=== PATIENT | male | born 1960 | race Caucasian/White ===

== ENCOUNTER 2019-08-09 13:25 | Emergency (ER) | payer OTHER, SELFPAY ==
--- NOTE | ~2019-08-09 | XR_ITS ---
EXAMINATION: XR knee RT 3V DATE: 08/09/2019 14:26 INDICATION: Right knee injury with crepitus and internal pain TECHNIQUE: Anteroposterior, 2 oblique and crosstable lateral views of the right knee were obtained COMPARISON: None. FINDINGS: Alignment is normal. No fracture. Joint space appear normal. No joint effusion/layering lipohemarthr osis. Mild prepatellar soft tissue swelling. IMPRESSION: 1. No right knee joint effusion or acute osseous abnormality. Reviewed, dictated and finalized at location A.
[2019-08-09 13:39] VITALS: BP 141/74; PULSE 83; RESP 18; TEMP 36.3; O2SAT 97
--- NOTE | 2019-08-09 13:54 | ED.LOWEXIN ---
HPI - Extremity Injury (Lower) General Chief Complaint: Extremity Injury, Lower Stated Complaint: r leg pain at knee cap Time Seen by Provider: 08/09/19 13:55 Source: patient Mode of arrival: ambulatory Limitations: no limitations History of Present Illness HPI Narrative: 59-year-old man comes in today complaining of right medial knee pain, bruising, and swelling that started yesterday after the weight of a Rototiller was shifted onto it. He states that the pain is gotten worse and he feels a grinding sensation in the back of his knee and under his kneecap. He also complains that he is occasionally giving out. He denies any numbness or tingling distally. he is scheduled to see an orthopedic doctor next week. MD complaint: knee injury Onset (ago): day(s) (1) Injury: Right: knee Place: home Severity: moderate Relieving factors: rest Exacerbating factors: weight bearing, movement and palpation Context: direct blow Associated symptoms: swelling and able to partially bear weight Related Data Home Medications Medication Instructions Recorded Confirmed aspirin 81 mg tablet,delayed 81 mg PO DAILY 03/12/19 release atorvastatin 40 mg tablet 40 mg PO DAILY 03/12/19 nitroglycerin 0.4 mg sublingual 0.4 mg SUBLINGUAL Q5M PRN 03/12/19 tablet trazodone 150 mg tablet 150 mg PO BID 03/12/19 metoprolol succinate 50 mg PO DAILY 08/09/19 08/09/19 Allergies Allergy/AdvReac Type Severity Reaction Status Date / Time No Known Allergies Allergy Verified 08/08/19 10:30 Review of Systems Constitutional: Constitutional: Denies chills, Denies fever(s) and Denies weakness Eyes: Eyes: Denies change in vision and Denies photophobia Cardiovascular: Cardiovascular: Denies chest pain and Denies radiating jaw, neck or arm pain Respiratory: Respiratory: Denies cough, Denies dyspnea and Denies wheezing Musculoskeletal: Musculoskeletal: Reports as per HPI, Reports back pain (chronic), Reports arthralgias and Reports joint swelling Integumentary/Breasts: Skin/Breast: Denies pruritus, Denies rash and Denies skin ulcer Neurologic: Denies vertigo, Denies dizziness and Denies syncope Psychiatric: Psychiatric: Denies anxiety and Denies depression Hematologic/Lymphatic: Hematologic/Lymphatic: Denies easy bleeding and Denies easy bruising Allergic/Immunologic: Allergic/Immunologic: Denies lip swelling and Denies wheezing FOR[facility]LY [facility], [facility] Past Medical History Medical History Asthma History of heart attack Hyperlipemia Hypertension Surgical History Surgical History History of eye surgery multiple eye surgery 8821-1833 Hx of heart artery stent 2004 Family History Family History Father Pneumonia Sibling Throat cancer Unknown Heart disease Hypertension Allergies Social History Social History Smoking status: Never smoker Alcohol intake: former 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 Exam Const: General: healthy appearing and alert Orientation/consciousness: patient oriented x3 Other: Mild acute distress Eyes: Conjunctivae: conjunctivae normal Pupils: Equal, round and reactive pupils present EOM: EOMs intact bilaterally Resp: Effort & Inspection: normal respiratory effort and not labored Auscultation: clear to auscultation bilaterally, no rales, no rhonchi and no wheezes Cardio: Rate: regular rate Rhythm: regular rhythm Heart sounds: no murmurs Skin: General skin exam: normal color, no jaundice and no pallor Rashes: no rashes Neuro: General: patient oriented x3, moves all extremities, no focal motor deficits and CN's II-XI intact bilaterally Speech: normal speech Extrem: General: normal to inspection and no clubbing, cyanosis or edema Other: Regarding the right
== END 2019-08-09 14:50 | disposition home or self-care (01) ==
PROVIDERS: Emergency Provider Emergency Medicine; PCP Internal Medicine
DX: S83.91XA Sprain of unspecified site of right knee, initial encounter (principal); X58.XXXA Exposure to other specified factors, initial encounter
CPT/HCPCS: 73562; 99282; 99283

== ENCOUNTER 2020-01-28 07:29 | Outpatient (CLI) | payer OTHER, SELFPAY ==
--- NOTE | ~2020-01-28 | MR_ITS ---
EXAMINATION: MR knee RT wo con DATE: 01/28/2020 08:17 INDICATION: Right knee pain TECHNIQUE: Magnetic resonance imaging (MRI) of the right knee was performed without intravenous contr ast. Sequences included coronal PD-weighted FSE, coronal PD-weighted FS FSE, sagittal T2-weighted FS E, sagittal PD-weighted FS FSE and axial PD weighted fat saturated FSE. COMPARISON: None. FINDINGS: Medial compartment: Complex tear at the posterior horn of the at the posterior horn of the medial meniscus which includes both a radial component as well as a longitudinal horizontal component which extends anteriorly into the posterior meniscal body. There is partial thickness chondral ulceration and fissuring involving up to 50% the cartilage thickness along the anterior to central weightbearing medial femoral condyle. Chondral swelling and partial-thickness fissuring at the lateral aspect of the medial tibial plateau . Along the base of the intercondylar eminence. No degenerative subchondral changes. Lateral compartment: Small longitudinal horizontal tear extending to the inferior articular surface near the free edge of the body of the lateral meniscus. Partial-thickness chondral fissuring involving greater than 50% the cartilage thickness along the posterior rim of the lateral tibial plateau but without degenerative s ubchondral changes. Mild chondral surface irregularity at the junction of the anterior to central dejan ghtbearing lateral femoral condyle. Patellofemoral compartment: Shallow chondral fissuring involving less than 50% the cartilage thickness at both the medial and lat eral patellar facets and intervening apical ridge. Deep chondral ulceration with underlying cortical irregularity and minimal subarticular edema at the central aspect of the medial trochlea. Shallow cho ndral fissuring at the trochlear groove. Ligaments and tendons: Anterior and posterior cruciate ligaments are normal. The medial collateral ligament and fibular betty ateral ligament complex are normal. The extensor mechanism is normal. The visualized medial and later al hamstring tendons as well as the iliotibial band are normal. Fluid: Large right knee joint effusion. No loose osteochondral bodies identified. Mild edema in the fat ante rior aspect of the knee in the popliteal recess. Osseous/other: Bone alignment is normal. Enchondroma with classical T2 hyperintense cluster of grape like appearance measuring 1.6 x 0.7 x 0.4 cm in the metaphyseal region of the distal femur. No fracture or other pat hologic marrow replacing process. Medial plical band which extends across the medial rim of the media l trochlea. IMPRESSION: 1. Medial and lateral meniscal tears, the former complex. 2. 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 3. Large right knee joint effusion with medial plical band at the suprapatellar pouch. 4. Incidental enchondroma the distal femur. Reviewed, dictated and finalized at location A. IMPRESSION: 1. Medial and lateral meniscal tears, the former complex. 2. Mild tricompartmental osteoarthritis with high-grade chondromalacia at the m edial trochlea and moderate grade chondromalacia at the patella and medial and lateral compartments. 3. Large right knee joint effusion with medial plical band at the suprapatellar pouch. 4. Incidental enchondroma the distal femur.
== END 2020-01-28 07:30 | disposition home or self-care (01) ==
PROVIDERS: PCP Internal Medicine; Visit Provider Orthopaedic Surgery
DX: S83.231A Complex tear of medial meniscus, current injury, right knee, initial encounter (principal); S83.281A Other tear of lateral meniscus, current injury, right knee, initial encounter; M25.461 Effusion, right knee; D16.21 Benign neoplasm of long bones of right lower limb; M17.11 Unilateral primary osteoarthritis, right knee; M22.41 Chondromalacia patellae, right knee; X58.XXXA Exposure to other specified factors, initial encounter
CPT/HCPCS: 73721

== ENCOUNTER 2020-05-28 15:57 | Emergency (ER) | payer MEDICAID, SELFPAY ==
--- NOTE | ~2020-05-28 | XR_ITS ---
EXAMINATION: XR forearm RT 2V EXAM DATE: 05/28/2020 16:37 INDICATION: Initial encounter following injury, with pain of the right forearm, medial pain and swell ing and bruising. TECHNIQUE: Right forearm frontal and lateral projections obtained and reviewed. There is no prior st udy for comparison. FINDINGS: There is small right olecranon spur. There are no acute fractures or dislocations identifi ed. There is no subcutaneous gas. The soft tissue is unremarkable. There are no radiopaque foreig n bodies. IMPRESSION: No acute osseous findings. Reviewed, dictated and finalized at location A. B [facility] IMPRESSION: No acute osseous findings.
[2020-05-28 16:06] VITALS: BP 149/89; PULSE 73; RESP 14; TEMP 36.7; O2SAT 99
--- NOTE | 2020-05-28 16:19 | ED.GENADULT ---
HPI - General Adult General Chief complaint: Extremity Injury, Upper Stated complaint: right forearm injury- fell Time Seen by Provider: 05/28/20 16:09 Source: patient Mode of arrival: ambulatory Limitations: no limitations History of Present Illness HPI narrative: Patient is a 60-year-old male who presents with right mid forearm injury that occurred last night after tripping over his dog striking his right mid forearm patient notes aching pain worse with activity and movement denies other injuries presents in no distress Related Data Home Medications Medication Instructions Recorded Confirmed aspirin 81 mg tablet,delayed 81 mg PO DAILY 03/12/19 08/09/19 release atorvastatin 40 mg tablet 40 mg PO DAILY 03/12/19 08/09/19 nitroglycerin 0.4 mg sublingual 0.4 mg SUBLINGUAL Q5M PRN 03/12/19 08/09/19 tablet trazodone 150 mg tablet 150 mg PO HS PRN 03/12/19 08/09/19 metoprolol succinate 50 mg PO DAILY 08/09/19 08/09/19 Allergies Allergy/AdvReac Type Severity Reaction Status Date / Time No Known Allergies Allergy Verified 05/28/20 16:14 Review of Systems Review of Systems: Narrative: CONSTITUTIONAL: Denies fever, chills, or sweats. SKIN: Positive for abrasion of the right forearm MUSCULOSKELETAL: Denies myalgia. Negative for arthralgia NEUROLOGIC: Denies numbness, or weakness. 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 HEAD: Normocephalic, atraumatic. EYES: PERRLA and EOMI. ENT: Nares clear, no rhinorrhea or epistaxis. Mucous membranes moist. EXTREMITIES: Normal range of motion. No edema. Right mid forearm tenderness with small abrasion remainder of extremity nontender SKIN: Warm, dry, no rash. NEURO: No focal deficits. Alert and oriented x3. Neurovascularly intact PSYCH: Normal mood and affect. Course Course Emergency Course: Patient evaluated in the emergency department no concerning findings on the imaging will be discharged with outpatient follow-up Vital Signs Vital signs: Vital Signs Temperature 98.0 F 05/28/20 16:06 Pulse Rate 73 05/28/20 16:06 Respiratory Rate 14 05/28/20 16:06 Blood Pressure 149/89 H 05/28/20 16:06 Pulse Oximetry 99 05/28/20 16:06 Temperature 98.0 F 05/28/20 16:06 Pulse Rate 73 05/28/20 16:06 Respiratory Rate 14 05/28/20 16:06 Blood Pressure 149/89 H 05/28/20 16:06 Pulse Oximetry 99 05/28/20 16:06 Medical Decision Making MDM Narrative Medical decision making narrative: Patients injury or pain is consistent with musculoskeletal etiology. No signs of neurological or vascular compromise on exam. Compartments and tisues are soft without signs of compartment syndrome. Pain is felt appropriate for further evaluation on an outpatient basis. Vital Signs Vital Signs: Vital Signs Temperature 98.0 F 05/28/20 16:06 Pulse Rate 73 05/28/20 16:06 Respiratory Rate 14 05/28/20 16:06 Blood Pressure 149/89 H 05/28/20 16:06 Pulse Oximetry 99 05/28/20 16:06 Temperature 98.0 F 05/28/20 16:06 Pulse Rate 73 05/28/20 16:06 Respiratory Rate 14 05/28/20 16:06 Blood Pressure 149/89 H 05/28/20 16:06
== END 2020-05-28 17:15 | disposition home or self-care (01) ==
PROVIDERS: Emergency Provider Emergency Medicine; PCP Internal Medicine
DX: S50.11XA Contusion of right forearm, initial encounter (principal); J45.909 Unspecified asthma, uncomplicated; I25.2 Old myocardial infarction; E78.5 Hyperlipidemia, unspecified; I10 Essential (primary) hypertension; W01.0XXA Fall on same level from slipping, tripping and stumbling without subsequent striking against object, initial encounter
CPT/HCPCS: 73090; 99283

== ENCOUNTER 2020-07-02 09:28 | Emergency (ER) | payer MEDICAID, SELFPAY ==
--- NOTE | ~2020-07-02 | XR_ITS ---
EXAMINATION: XR foot LT 2V DATE: 07/02/2020 10:01 INDICATION: Foot injury with pain at the first-third tarsal after kicking a log. TECHNIQUE: Dorsoplantar, 2 oblique and lateral views of the left foot were obtained. COMPARISON: None. FINDINGS: Alignment is normal. No fracture. Mild to moderate osteoarthritis at the first metatarsophalangeal thai int. Remaining joint spaces appear relatively preserved. Small Achilles and plantar calcaneal spurs. Soft tissues are unremarkable. IMPRESSION: 1. Mild to moderate osteoarthritis at the first metatarsophalangeal joint. No acute osseous abnormali ty. Reviewed, dictated and finalized at location A. IMPRESSION: 1. Mild to moderate osteoarthritis at the first metatarsophalangeal joint. No a cute osseous abnormality.
[2020-07-02 09:40] VITALS: BP 148/97; PULSE 56; RESP 17; TEMP 36.4; O2SAT 99
--- NOTE | 2020-07-02 10:41 | ED.LOWEXIN ---
HPI - Extremity Injury (Lower) General Chief Complaint: Extremity Injury, Lower Stated Complaint: left foot injury Source: patient History of Present Illness HPI Narrative: this is a 60-year-old gentleman presents after he kicked a tree stump inadvertently causing pain with swelling and bruising to the anterior surface of his left foot, this occurred yesterday rates his pain about 8/10 and while at rest about a 4/10 has some decreased range of motion secondary to pain and swelling. Past medical history is coronary artery disease with stents otherwise no fever chills no shortness of breath no chest pain. complaint: foot injury Injury: Left: foot ( Anterior bruising on his left foot) Type of Injury: blunt Place: work Severity: moderate Relieving factors: immobilization Exacerbating factors: weight bearing and movement Context: direct blow Related Data Home Medications Medication Instructions Recorded Confirmed aspirin 81 mg tablet,delayed 81 mg PO DAILY 03/12/19 07/02/20 release atorvastatin 40 mg tablet 40 mg PO DAILY 03/12/19 07/02/20 nitroglycerin 0.4 mg sublingual 0.4 mg SUBLINGUAL Q5M PRN 03/12/19 07/02/20 tablet trazodone 150 mg tablet 150 mg PO HS PRN 03/12/19 07/02/20 metoprolol succinate 50 mg PO DAILY 08/09/19 07/02/20 Allergies Allergy/AdvReac Type Severity Reaction Status Date / Time No Known Allergies Allergy Verified 05/28/20 16:14 Review of Systems Review of Systems: All systems reviewed & are unremarkable except as noted in HPI and below PMFSH Past Medical History Medical History (Updated 07/02/20 @ 10:45 by Christopher Zuleta MD) Asthma History of heart attack Hyperlipemia Hypertension Surgical History Surgical History History of eye surgery multiple eye surgery 7366-4787 Hx of heart artery stent 2004 Family History Family History Father Pneumonia Sibling Throat cancer Unknown Heart disease Hypertension Allergies Social History Social History Smoking status: Never smoker Alcohol intake: former 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sciousness: patient oriented x3 HENMT: Head: normal to inspection Eyes: Pupils: Equal, round and reactive pupils present Neck: Neck: normal visual inspection Chest: Chest palpation & inspection: normal inspection of the chest Resp: Effort & Inspection: normal respiratory effort Cardio: Rate: regular rate Rhythm: regular rhythm GI: GI Palp: Yes Soft to palpation Percussion: Yes normal to percussion Back/Spine/Pelvis: Back: no CVA tenderness Neuro: General: patient oriented x3 Extrem: General: normal to inspection Psych: Mental Status: mental status grossly normal Course Course Emergency Course: X-ray findings were reviewed with patient, advised to keep elevated use Motrin lever Tylenol as needed for pain and can use ice to affected foot. Vital Signs Vital signs: Vital Signs Temperature 36.4 C 07/02/20 09:40 Pulse Rate 56 L 07/02/20 09:40 Respiratory Rate 17 07/02/20 09:40 Blood Pressure 148/97 H 07/02/20 09:40 Pulse Oximetry 99 07/02/20 09:40 Temperature 36.4 C 07/02/20 09:40 Pulse Rate 56 L 07/02/20 09:40 Respiratory Rate 17 07/02/20 09:40 Blood Pressure 148/97 H 07/02/20 09:40 Pulse Oximetry 99 07/02/20 09:40 Critical Care Time Critical Care Time Critical Care Time: No Discharge Plan Discharge Clinical Impression: Foot sprain Qualifiers: Encounter type: initial encounter Laterality: left Qualified Code(s): S93.602A - Unspecified sprain of left foot, initial encounter Patient Disposition: Home, Self-Care Condition: Stable Instructions
[2020-07-02 10:50] VITALS: RESP 16
== END 2020-07-02 10:50 | disposition home or self-care (01) ==
PROVIDERS: Emergency Provider Emergency Medicine
DX: S93.602A Unspecified sprain of left foot, initial encounter (principal); W22.8XXA Striking against or struck by other objects, initial encounter
CPT/HCPCS: 73620; 73630; 99282; 99283

== ENCOUNTER → 2020-12-17 02:43 | Outpatient (CLI) | payer MEDICARE, MEDICAID, SELFPAY ==
[2020-12-17 20:44] LABS: SARS-CoV-2 RNA PCR Positive
== END ==
PROVIDERS: PCP Internal Medicine; Visit Provider Internal Medicine
DX: U07.1 COVID-19 (principal)
CPT/HCPCS: C9803; U0003; U0005

== ENCOUNTER 2021-07-27 18:01 | Emergency (ER) | payer MEDICARE, MEDICAID, SELFPAY ==
--- NOTE | ~2021-07-27 | XR_ITS ---
EXAM: XR hand RT min 3V HISTORY: hand injury. pain @ 4th digit COMPARISON: None available FINDINGS: Comminuted fracture of the distal right fourth metacarpal, with lateral and anterior angul ation. Fracture lines likely extend to the articular surface. No other fracture. Scattered mild degen erative changes. IMPRESSION: Comminuted fracture of the distal right fourth metacarpal (boxer's type fracture), with likely intra- articular extension. Reviewed, dictated and finalized at location K. IMPRESSION: Comminuted fracture of the distal right fourth metacarpal (boxer's type fractur e), with likely intra-articular extension.
[2021-07-27 18:25] VITALS: BP 160/79; PULSE 61; RESP 16; TEMP 36.6; O2SAT 100
--- NOTE | 2021-07-27 18:34 | ED.UPPEXIN ---
HPI - Extremity Injury (Upper) General Chief Complaint: Extremity Injury, Upper Stated Complaint: RT hand injury Time Seen by Provider: 07/27/21 18:34 Source: patient History of Present Illness HPI narrative: 61-year-old male with a history of coronary artery disease status post stent in 2004, chronic low back pain presents to the ER after he fell and injured his right hand. No other injuries. No head injury. Complains of pain in the right 4th metacarpal extending back to the wrist. he has a 1 cm deep laceration over the MP joint dorsally which happened a few days ago. complaint: injury to: right Onset (ago): hour(s) ( 1 hour ago) Other Extremity Injury: Right: hand Handedness: right Place: home Relieving factors: none Exacerbating factors: movement of extremity Context: fall Associated symptoms: denies other symptoms Related Data Home Medications Medication Instructions Recorded Confirmed aspirin 81 mg tablet,delayed 81 mg PO DAILY 03/12/19 07/27/21 release atorvastatin 40 mg tablet 40 mg PO DAILY 03/12/19 07/27/21 nitroglycerin 0.4 mg sublingual 0.4 mg SUBLINGUAL Q5M PRN 03/12/19 07/27/21 tablet trazodone 150 mg tablet 150 mg PO HS PRN 03/12/19 07/27/21 metoprolol succinate 50 mg PO DAILY 08/09/19 07/27/21 ezetimibe [Zetia] 10 mg PO DAILY 07/27/21 07/27/21 Allergies Allergy/AdvReac Type Severity Reaction Status Date / Time No Known Allergies Allergy Verified 07/27/21 18:44 Review of Systems Review of Systems: All systems reviewed & are unremarkable except as noted in HPI and below Constitutional: Constitutional: Reports as per HPI and Reports no additional constitutional complaints Eyes: Eyes: Reports as per HPI and Reports no additional eye complaints ENT: Reports system reviewed and no additional complaints, except as documented and Reports as per HPI Cardiovascular: Cardiovascular: Reports as per HPI and Reports no additional cardiovascular complaints Respiratory: Respiratory: Reports as per HPI and Reports no additional respiratory complaints Gastrointestinal: Gastrointestinal: Reports as per HPI and Reports no additional gastrointestinal complaints Genitourinary: Genitourinary: Reports no additional male genitourinary complaints Musculoskeletal: Comments: Pain right hand is localized over the 4th metacarpal Integumentary/Breasts: Skin/Breast: Reports system reviewed and no additional complaints, except as docu and Reports as per HPI Comments: old 1 cm laceration on the back of right hand over the 2nd MP joint Neurologic: Reports system reviewed and no additional complaints, except as documented and Reports as per HPI Psychiatric: Psychiatric: Reports no additional psychiatric complaints and Reports as per HPI Endocrine: Endocrine: Reports no additional endocrine complaints and Reports as per HPI Hematologic/Lymphatic: Hematologic/Lymphatic: Reports no additional hematologic/lymphatic complaints and Reports as per HPI Allergic/Immunologic: Allergic/Immunologic: Reports no additional allergic/immunologic complaints and Reports as per HPI PMFSH Past Medical History Medical History (Updated 07/27/21 @ 19:11 by Aamir Do MD) Asthma History of heart attack Hyperlipemia Hypertension Surgical History Surgical History History of eye surgery multiple eye surgery [id number] Hx of heart artery stent 2004 Family History Family History Father Pneumonia Sibling Throat cancer Unknown Heart disease Hypertension Allergies Social History Social History Smoking status: Never smoker Alcohol intake: former 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
[2021-07-27 19:23] VITALS: BP 155/82; PULSE 78; RESP 18; TEMP 36.6; O2SAT 98
== END 2021-07-27 19:35 | disposition home or self-care (01) ==
PROVIDERS: Emergency Provider Internal Medicine Critical Care Medicine; PCP Internal Medicine
DX: S62.334A Displaced fracture of neck of fourth metacarpal bone, right hand, initial encounter for closed fracture (principal); W19.XXXA Unspecified fall, initial encounter
CPT/HCPCS: 29125; 73130; 99284

== ENCOUNTER 2021-12-18 12:08 | Emergency (ER) | payer OTHER, SELFPAY ==
[2021-12-18 12:35] VITALS: BP 151/77; PULSE 68; RESP 16; TEMP 36.2; O2SAT 100
--- NOTE | 2021-12-18 12:51 | ED.GENADULT ---
HPI - General Adult General Chief complaint: Upper Respiratory Infection Stated complaint: sore throat/coughing/sweats Time Seen by Provider: 12/18/21 12:13 Source: patient Mode of arrival: ambulatory Limitations: no limitations History of Present Illness HPI narrative: this is a 61-year-old gentleman that presents with a one-week history of nasal congestion with some nonproductive cough with postnasal drip frontal and maxillary sinus pressure bilaterally with palpation his son had been diagnosed with a sinus infection. Currently there is no shortness of breath no chest pain no fever chills no nausea vomiting. Onset (ago): week(s) Location: head and face Severity: mild Related Data Home Medications Medication Instructions Recorded Confirmed aspirin 81 mg tablet,delayed 81 mg PO DAILY 03/12/19 07/27/21 release atorvastatin 40 mg tablet 40 mg PO DAILY 03/12/19 07/27/21 nitroglycerin 0.4 mg sublingual 0.4 mg sublingual Q5M PRN Chest 03/12/19 07/27/21 tablet Pain trazodone 150 mg tablet 150 mg PO HS PRN Sleep 03/12/19 07/27/21 metoprolol succinate 50 mg 50 mg PO DAILY 08/09/19 07/27/21 tablet,extended release 24 hr ezetimibe 10 mg tablet (Zetia) 10 mg PO DAILY 07/27/21 07/27/21 Allergies Allergy/AdvReac Type Severity Reaction Status Date / Time No Known Allergies Allergy Verified 12/18/21 13:00 Review of Systems Review of Systems: All systems reviewed & are unremarkable except as noted in HPI and below PMFSH Past Medical History Medical History (Updated 12/18/21 @ 13:02 by Christopher Zuleta MD) Asthma History of heart attack Hyperlipemia Hypertension Surgical History Surgical History History of eye surgery multiple eye surgery [id number] Hx of heart artery stent 2004 Family History Family History Father Pneumonia Sibling Throat cancer Unknown Heart disease Hypertension Allergies Social History Social History Smoking status: Never smoker Alcohol intake: former 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 Gender identity (if verbalized by the patient): Male Exam Const: General: healthy appearing and no acute distress Nutritional Appearance: well nourished Limitations: no limitations HENMT: Head: normal to inspection Mouth: Yes Normal oral and palatal mucosa present Other: Frontal and maxillary sinus tenderness to palpation Eyes: EOM: EOMs intact bilaterally Neck: Neck: normal visual inspection, no lymphadenopathy and no meningeal signs Chest: Chest palpation & inspection: normal inspection of the chest Resp: Effort & Inspection: normal respiratory effort Cardio: Rate: regular rate Rhythm: regular rhythm GI: GI Palp: Yes Soft to palpation Back/Spine/Pelvis: Back: no CVA tenderness Skin: General skin exam: normal color Rashes: no rashes Neuro: General: patient oriented x3, moves all extremities, no meningeal signs and no focal motor deficits Extrem: General: normal to inspection and no clubbing, cyanosis or edema Psych: Mental Status: mental status grossly normal Affect: normal affect Course Course Emergency Course: patient received 1g IM ceftriaxone advised to take antibiotics as prescribed and follow-up with primary care physician if symptoms persist or worsen. Critical Care Time Critical Care Time Critical Care Time: No Discharge Plan Discharge Clinical Impression: Sinusitis Qualifiers: Sinusitis location: unspecified location Chronicity: acute Recurrence: non-recurrent Qualified Code(s): J01.90 - Acute sinusitis, unspecified Patient Disposition: Home, Self-Care Condition: Stable Instructions: Antibiotic Form, Sinusitis (ED) Additional Instructions: take medicine as prescribed and follow-up with primary care physician if symptoms persist
[2021-12-18] MEDS: cefTRIAXone 1 GM, LIDOCAINE HCL 1% LOCAL INJ 2.1 ML IM (13:13)
[2021-12-18 13:35] VITALS: BP 142/65; PULSE 70; RESP 16; TEMP 36.6; O2SAT 98
== END 2021-12-18 13:37 | disposition home or self-care (01) ==
PROVIDERS: Emergency Provider Emergency Medicine; PCP Internal Medicine
DX: J01.90 Acute sinusitis, unspecified (principal); E78.5 Hyperlipidemia, unspecified; I10 Essential (primary) hypertension
CPT/HCPCS: 96372; 99283; J0696

== ENCOUNTER 2022-02-23 11:08 | Outpatient (CLI) | payer OTHER, SELFPAY ==
[2022-02-23 12:26] LABS: Influenza A QL RT-PCR Negative (Negative); Influenza B QL RT-PCR Negative (Negative); SARS-CoV-2 RNA PCR Positive (Negative)
== END 2022-02-23 11:09 | disposition home or self-care (01) ==
PROVIDERS: PCP Internal Medicine; Visit Provider Internal Medicine
DX: U07.1 COVID-19 (principal); R05.9 Cough, unspecified
CPT/HCPCS: 87636

== ENCOUNTER 2022-04-05 09:56 | Outpatient (CLI) | payer OTHER, SELFPAY ==
[2022-04-05 11:04] LABS: Cholesterol 189 mg/dL (0-200); HDL Direct 48 mg/dL (40-60); LDL Cholesterol Calculated 103 mg/dL (<130); Triglycerides 188 mg/dL (0-150)
== END 2022-04-05 09:57 | disposition home or self-care (01) ==
LOC: CHSLAB 10:01
PROVIDERS: PCP Internal Medicine
DX: R07.9 Chest pain, unspecified (principal); E78.5 Hyperlipidemia, unspecified; I10 Essential (primary) hypertension; I25.10 Atherosclerotic heart disease of native coronary artery without angina pectoris
CPT/HCPCS: 36415; 80061

== ENCOUNTER 2022-05-23 07:44 | Outpatient (CLI) | payer OTHER, SELFPAY ==
[2022-05-23 08:00] LABS: Basophils Absolute Auto 0.04 K/mm3 (0.00-0.10); Basophils Percent Auto 0.7 % (0.0-1.0); Eosinophils Absolute Auto 0.35 K/mm3 (0.02-0.50); Eosinophils Percent Auto 5.9 % (1.0-6.0); Hematocrit 43.9 % (40.0-54.0); Hemoglobin 14.8 g/dL (14.0-18.0); Immature Granulocyte Absolute 0.01 K/mm3 (0.00-0.00); Immature Granulocyte Percent A 0.2 % (0.0-0.0); Lymphocytes Absolute Auto 1.95 K/mm3 (1.10-4.50); Lymphocytes Percent Auto 32.6 % (18.0-42.0); Mean Corpuscular HGB Conc 33.7 g/dL (32.0-36.0); Mean Corpuscular Hemoglobin 28.8 pg (27.0-31.0); Mean Corpuscular Volume 85.4 fL (78.0-102.0); Mean Platelet Volume 9.5 fl (8.7-11.0); Monocytes Absolute Auto 0.56 K/mm3 (0.10-0.90); Monocytes Percent Auto 9.4 % (2.0-11.0); Neutrophils Absolute Auto 3.1 K/mm3 (1.7-7.2); Neutrophils Percent Auto 51.2 % (50.0-70.0); Platelet Count Result 285 K/mm3 (150-420); Red Blood Count 5.14 M/mm3 (4.70-6.10); Red Cell Distribution Width 13.3 % (11.6-14.4)
[2022-05-23 08:49] LABS: Alanine Aminotransferase 22 U/L (16-63); Albumin Level 3.9 g/dL (3.4-5.0); Alkaline Phosphatase 64 U/L (46-116); Anion Gap 5 mmol/L (8-16); Aspartate Amino Transferase 26 U/L (15-37); Bilirubin,Total 0.4 mg/dL (0.00-1.00); Blood Urea Nitrogen 14 mg/dL (7-18); Calcium 9.3 mg/dL (8.5-10.1); Carbon Dioxide 31 mmol/L (21-32); Chloride 101 mmol/L (98-108); Cholesterol 157 mg/dL (0-200); Estimated Glomerular Filt Rate > 60; Glucose 103 mg/dL (70-99); HDL Direct 44 mg/dL (40-60); LDL Cholesterol Calculated 92 mg/dL (<130); Osmolality Calculated 284 mOsm/kg (285-295); Potassium 4.8 mmol/L (3.5-5.1); Prostate Specific Antigen 0.6 ng/mL (< OR = 4.0); Sodium 137 mmol/L (136-145); Total Protein 7.2 g/dL (6.4-8.2); Triglycerides 103 mg/dL (0-150)
== END 2022-05-23 07:45 | disposition home or self-care (01) ==
LOC: CHSLAB 07:47
PROVIDERS: PCP Internal Medicine; Visit Provider Internal Medicine
DX: E78.00 Pure hypercholesterolemia, unspecified (principal); N42.9 Disorder of prostate, unspecified; I10 Essential (primary) hypertension; Z12.5 Encounter for screening for malignant neoplasm of prostate
CPT/HCPCS: 36415; 80053; 80061; 84153; 85025; G0103

== ENCOUNTER 2022-10-21 08:43 | Outpatient (CLI) | payer OTHER, SELFPAY ==
[2022-10-21 09:00] LABS: Basophils Absolute Auto 0.05 K/mm3 (0.00-0.10); Basophils Percent Auto 0.8 % (0.0-1.0); Eosinophils Absolute Auto 0.22 K/mm3 (0.02-0.50); Eosinophils Percent Auto 3.6 % (1.0-6.0); Hematocrit 45.6 % (40.0-54.0); Hemoglobin 15.3 g/dL (14.0-18.0); Immature Granulocyte Absolute 0.01 K/mm3 (0.00-0.00); Immature Granulocyte Percent A 0.2 % (0.0-0.0); Lymphocytes Absolute Auto 1.72 K/mm3 (1.10-4.50); Lymphocytes Percent Auto 28.1 % (18.0-42.0); Mean Corpuscular HGB Conc 33.6 g/dL (32.0-36.0); Mean Corpuscular Hemoglobin 28.8 pg (27.0-31.0); Mean Corpuscular Volume 85.9 fL (78.0-102.0); Mean Platelet Volume 9.7 fl (8.7-11.0); Monocytes Absolute Auto 0.54 K/mm3 (0.10-0.90); Monocytes Percent Auto 8.8 % (2.0-11.0); Neutrophils Absolute Auto 3.6 K/mm3 (1.7-7.2); Neutrophils Percent Auto 58.5 % (50.0-70.0); Platelet Count Result 281 K/mm3 (150-420); Red Blood Count 5.31 M/mm3 (4.70-6.10); Red Cell Distribution Width 13.2 % (11.6-14.4); White Blood Count 6.1 K/mm3 (4.8-10.8)
[2022-10-21 09:57] LABS: Alanine Aminotransferase 25 U/L (16-63); Albumin Level 3.8 g/dL (3.4-5.0); Alkaline Phosphatase 72 U/L (46-116); Anion Gap 7 mmol/L (8-16); Aspartate Amino Transferase 12 U/L (15-37); Bilirubin,Total 0.7 mg/dL (0.00-1.00); Blood Urea Nitrogen 12 mg/dL (7-18); Calcium 9.4 mg/dL (8.5-10.1); Carbon Dioxide 29 mmol/L (21-32); Chloride 105 mmol/L (98-108); Cholesterol 157 mg/dL (0-200); Estimated Glomerular Filt Rate > 60; Free T4 Free Thyroxine 0.85 ng/dL (0.76-1.46); Glucose 101 mg/dL (70-99); HDL Direct 43 mg/dL (40-60); LDL Cholesterol Calculated 94 mg/dL (<130); Osmolality Calculated 291 mOsm/kg (285-295); Potassium 4.5 mmol/L (3.5-5.1); Prostate Specific Antigen 0.4 ng/mL (< OR = 4.0); Sodium 141 mmol/L (136-145); Thyroid Stimulating Hormone 1.56 uIU/mL (0.36-3.74); Triglycerides 100 mg/dL (0-150)
== END 2022-10-21 08:44 | disposition home or self-care (01) ==
PROVIDERS: PCP Internal Medicine; Visit Provider Internal Medicine
DX: E78.00 Pure hypercholesterolemia, unspecified (principal); N42.9 Disorder of prostate, unspecified
CPT/HCPCS: 36415; 80053; 80061; 84153; 84439; 84443; 85025

== ENCOUNTER 2023-04-01 08:48 | Observation (INO) | payer OTHER, SELFPAY ==
[2023-04-01] VITALS (25 sets, daily range): BP systolic 137–153; BP diastolic 80–91; PULSE 70–112; RESP 12–25; TEMP 36.3–36.4; O2SAT 95–100; BMI 29.3
--- NOTE | ~2023-04-01 | XR_ITS ---
XR chest 1V portable DATE: 04/01/2023 11:12 INDICATION: Cough, shortness of breath. Covid and RSV positive. TECHNIQUE: 2 portable AP views on 04/01/2023 at 1104 at 1106 hours COMPARISON: None FINDINGS: Normal heart size. There is minimal aortic unfolding. The examination is limited by artifacts including tubing and apparent syringe overlying the chest. No pulmonary infiltrate or consolidation, pleural effusion or pulmonary vascular congestion or pneumo thorax is detected. Degenerative spurring of the thoracic spine. IMPRESSION: Limited examination due to overlying artifact. No obvious active cardiopulmonary disease Reviewed, dictated and finalized at location A. [employer] IMPRESSION: Limited examination due to overlying artifact. No obvious active ca rdiopulmonary disease
[2023-04-01 10:05] LABS: Influenza A QL RT-PCR Negative (Negative); Influenza B QL RT-PCR Negative (Negative); RSV RNA, RT-PCR Positive (Negative); SARS-CoV-2 RNA PCR Positive (Negative)
[2023-04-01] MEDS: IPRATROPIUM BR 0.02% INH SOLN 0.5 MG/2.5 ML VIAL 1.5 MG INHALATION (10:43)
[2023-04-01] MEDS: LEVALBUTEROL NEB 1.25 MG/3 ML 2.5 MG INHALATION (10:43)
--- NOTE | 2023-04-01 11:17 | ED.URI ---
HPI - URI/Sore Throat General Chief Complaint: Upper Respiratory Infection Stated Complaint: cold Time Seen by Provider: 04/01/23 09:37 Source: patient Mode of arrival: ambulatory Limitations: no limitations History of Present Illness HPI Narrative: Patient is a 63-year-old male who presents ED with report of URI symptoms. Patient reports he has been sick intermittently for the last 1.5 months. He has been on several courses of antibiotics and steroids per his PCP. He was initially feeling better, but states he was around his son whose classmate had been sick with RSV around 1 week ago. He reports worsening cough, congestion, headache, muscle aches, shortness of breath, chest pain with coughing over the last couple days. Denies chest pain at rest. Denies fevers. He has been taking Tylenol and using spiriva at home. Has not taken anything for sx's today. Related Data Home Medications Medication Instructions Recorded Confirmed aspirin 81 mg tablet,delayed 81 mg PO DAILY 03/12/19 04/01/23 release atorvastatin 40 mg tablet 40 mg PO DAILY 03/12/19 04/01/23 metoprolol succinate 50 mg 50 mg PO DAILY 08/09/19 04/01/23 tablet,extended release 24 hr ezetimibe 10 mg tablet (Zetia) 10 mg PO DAILY 07/27/21 04/01/23 montelukast 10 mg tablet 10 mg PO DAILY 12/18/21 04/01/23 Allergies Allergy/AdvReac Type Severity Reaction Status Date / Time No Known Allergies Allergy Verified 04/01/23 09:35 Review of Systems Review of Systems: CONSTITUTIONAL: Denies fever, chills, or sweats. ENT: See HPI. CARDIOVASCULAR: See HPI. RESPIRATORY: See HPI. GASTROINTESTINAL: Denies abdominal pain, nausea, vomiting. MUSCULOSKELETAL: See HPI. NEUROLOGIC: See HPI. All systems reviewed & are unremarkable except as noted in HPI and below PMFSH Past Medical History Medical History (Updated 04/01/23 @ 15:14 by Ana Maria Acosta PA-C) Asthma History of heart attack Hyperlipemia Hypertension Surgical History Surgical History History of eye surgery multiple eye surgery [id number] Hx of heart artery stent 2004 Family History Family History Father Pneumonia Sibling Throat cancer Unknown Heart disease Hypertension Allergies Social History Social History Smoking status: Never smoker Alcohol intake: never Substance use: never Do You Feel Safe in your Home?: Yes Lack of Transportation: No Lack of Food: Never True Current Housing: I Have Housing Concerned About Future Housing: No Difficulty Paying Gas/Electric Bills: No Difficulty Paying for Meds: No Currently Unemployed: No Education: Master's Degree or Higher Difficulty w/ Childcare or Family Care: No Living arrangements: with family Occupation/Education: occupation 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 HEAD: Normocephalic, atraumatic. RESPIRATORY: Airway patent, respirations mildly labored. Frequent coughing on exam. Diffuse rhonchi, coarse lung sounds, scattered expiratory wheezing. CARDIOVASCULAR: Regular rate and rhythm without murmurs, rubs, or gallops. MUSCULOSKELETAL: Moves all extremities. No gross deformities. SKIN: Warm, dry, normal color. NEURO: A&O X3. Speech clear. Cranial nerves II-XII grossly intact. Steady gait. No ataxic movements. PSYCHIATRIC: Appropriate mood and affect. Normal interaction. Course Vital Signs Vital signs: Vital Signs Temperature 97.4 F L 04/01/23 09:02 Pulse Rate 81 04/01/23 09:02 Respiratory Rate 20 04/01/23 09:02 Blood Pressure 151/83 H 04/01/23 09:02 Pulse Oximetry 98 04/01/23
[2023-04-01] MEDS: PSEUDOEPHEDRINE HCL 30 MG TABLET 60 MG PO (11:56)
[2023-04-01] MEDS: IBUPROFEN 600 MG TABLET PO (11:56)
[2023-04-01] MEDS: ACETAMINOPHEN 500 MG TABLET 1000 MG PO (11:56)
[2023-04-01] MEDS: BENZONATATE 100 MG CAPSULE 200 MG PO (11:56)
[2023-04-01] MEDS: methylPREDNISolone SOD SUCC 125 MG VIAL IM (12:15)
--- NOTE | 2023-04-01 12:31 | PC.NURSE ---
Pt walked with pulse ox, started at 98% on RA and dropped down to 89-90% on RA while walking.
[2023-04-01 14:09] LABS: Basophils Absolute Auto 0.1 K/mm3 (0.0-0.1); Basophils Percent Auto 0.5 % (0.2-1.2); Eosinophils Absolute Auto 0.1 K/mm3 (0-0.3); Eosinophils Percent Auto 0.8 % (0-4.4); Hematocrit 43.6 % (42.0-52.0); Hemoglobin 14.2 g/dL (14.0-18.0); Immature Granulocyte Absolute 0.04 K/mm3 (0.00-0.031); Immature Granulocyte Percent A 0.4 % (0-0.5); Lymphocytes Absolute Auto 0.83 K/mm3 (0.9-3.2); Lymphocytes Percent Auto 8.5 % (18.3-44.2); Mean Corpuscular HGB Conc 32.6 g/dl (32-36); Mean Corpuscular Hemoglobin 28.5 pg (26-34); Mean Corpuscular Volume 87.6 fl (80-100); Mean Platelet Volume 9.9 fl (7.4-10.4); Monocytes Absolute Auto 0.6 K/mm3 (0.1-0.6); Monocytes Percent Auto 5.7 % (2.6-8.5); Neutrophils Absolute Auto 8.2 K/mm3 (1.3-6.7); Neutrophils Percent Auto 84.1 % (45.5-73.1); Platelet Count Result 230 k/mm3 (150-375); Red Blood Count 4.98 M/mm3 (4.6-6.20); Red Cell Distribution Width 14.3 % (11.5-14.5); White Blood Count 9.8 K/mm3 (4.5-10.0)
[2023-04-01 14:22] LABS: Alanine Aminotransferase 24 U/L (6-50); Albumin Level 4.4 g/dL (3.5-5.1); Alkaline Phosphatase 68 U/L (38-126); Anion Gap 8 mmol/L (8-16); Aspartate Amino Transferase 23 U/L (17-59); Bilirubin,Total 0.9 mg/dL (0.2-1.3); Blood Urea Nitrogen 12 mg/dL (9-20); Calcium 9.5 mg/dL (8.4-10.2); Carbon Dioxide 26 mmol/L (22-30); Chloride 105 mmol/L (98-107); Estimated CRCL calculation 92 ml/min; Estimated Glomerular Filt Rate > 60; Glucose 95 mg/dL (65-110); Potassium 3.9 mmol/L (3.4-5.0); Sodium 139 mmol/L (137-145)
[2023-04-01 14:33] LABS: NT Pro B Type Natriuretic Pept 219 pg/mL (19.9-100); Troponin I < 0.012 ng/mL (0.000-0.034)
[2023-04-01] MEDS: SODIUM CHLORIDE 0.9% IV 1,000 ML 999 ML IV CONT (15:27)
[2023-04-01 15:49] LABS: Lactic Acid Reflex 1.5 mmol/L (0.7-2.0)
[2023-04-01 15:52] LABS: CRP < 0.5 mg/dL (<1.0)
[2023-04-01 16:02] LABS: Erythrocyte Sedimentation Rate 13 mm/hr (0-20)
--- NOTE | 2023-04-01 17:34 | PC.NURSE ---
This patient, Vinay Ha Jr., was admitted to Medical Room 254-01. Patient/family oriented to hospital policies and general routines including ID bracelet, bed and alarms, visiting hours, pain management, procedures, bathroom and other care routines, personal items, smoking policy, room service/diet, and visiting hours. Information on how to activate the Rapid Response Team has been discussed. Patient/Family are encouraged to report perceived risks to care and to ask questions if they do not understand what they are told or what they should do.
--- NOTE | 2023-04-01 20:12 | PM.IMHP ---
H&P: HPI History of Present Illness Date/Time: 04/01/23 20:12 Chief Complaint: Shortness of breath Narrative: This is a 63-year-old male with past medical history significant for hypertension, type 2 diabetes mellitus, asthma. Patient presents to the emergency room due to generalized body aches and pains, fevers, chills, cough, shortness of breath. Patient tested positive for RSV and COVID. XR chest 1V portable DATE: 04/01/2023 11:12 INDICATION: Cough, shortness of breath. Covid and RSV positive.? TECHNIQUE: 2 portable AP views on 04/01/2023 at 1104 at 1106 hours? COMPARISON: None? FINDINGS: Normal heart size. There is minimal aortic unfolding. The examination is limited by artifacts including tubing and apparent syringe overlying the chest. No pulmonary infiltrate or consolidation, pleural effusion or pulmonary vascular congestion or pneumothorax is detected. Degenerative spurring of the thoracic spine. IMPRESSION: Limited examination due to overlying artifact. No obvious active cardiopulmonary disease? Review of Systems Review of Systems: cough, sob, body aches and pain. Constitutional: Constitutional: Reports chills, Reports fatigue, Reports fever(s), Reports malaise, Reports night sweats and Reports weakness Eyes: Eyes: Denies change in vision ENT: Denies dysphagia and Denies odynophagia Cardiovascular: Cardiovascular: Denies chest pain, Denies radiating jaw, neck or arm pain and Denies palpitations Respiratory: Respiratory: Reports change in phlegm color, Reports cough, Reports dyspnea and Reports wheezing Gastrointestinal: Gastrointestinal: Denies abdominal pain, Denies dyspepsia, Denies heartburn, Denies diarrhea, Denies nausea and Denies vomiting Genitourinary: Genitourinary: Denies dysuria Musculoskeletal: Musculoskeletal: Reports myalgias Integumentary/Breasts: Skin/Breast: Denies rash Neurologic: Denies focal weakness and Denies Sensory deficit (Neuro) Psychiatric: Psychiatric: Reports no additional psychiatric complaints and Reports as per HPI Endocrine: Endocrine: Denies cold intolerance, Denies fatigue, Denies flushing, Denies heat intolerance, Denies polyphagia, Denies polydipsia and Denies palpitations Hematologic/Lymphatic: Hematologic/Lymphatic: Reports no additional hematologic/lymphatic complaints and Reports as per HPI Allergic/Immunologic: Allergic/Immunologic: Reports no additional allergic/immunologic complaints and Reports as per HPI [facility] Past Medical History Medical History (Updated 04/02/23 @ 05:19 by Melonie Daley MD) Asthma History of heart attack Hyperlipemia Hypertension Surgical History Surgical History History of eye surgery multiple eye surgery [id number] Hx of heart artery stent 2004 Family History Family History Father Pneumonia Sibling Throat cancer Unknown Heart disease Hypertension Allergies Social History Social History Smoking status: Never smoker Alcohol intake: never Substance use: never Do You Feel Safe in your Home?: Yes Lack of Transportation: No Lack of Food: Never True Current Housing: I Have Housing Concerned About Future Housing: No Difficulty Paying Gas/Electric Bills: No Difficulty Paying for Meds: No Currently Unemployed: No Education: Master's Degree or Higher Difficulty w/ Childcare or Family Care: No Living arrangements: with family Occupation/Education: occupation 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
[2023-04-01 20:37] LABS: D Dimer < 0.27 ug/mL (<0.48)
[2023-04-01] MEDS: LEVALBUTEROL NEB 1.25 MG/3 ML 0.63 MG INHALATION (22:24)
[2023-04-01] MEDS: IPRATROPIUM BR 0.02% INH SOLN 0.5 MG/2.5 ML VIAL INHALATION (22:24)
[2023-04-01] MEDS: KETOROLAC 30 MG/ML VIAL (*BKC) IV PUSH (23:11)
[2023-04-01 23:52] LABS: Prothrombin Time 13.1 Seconds (11.1-14.7)
[2023-04-01] MEDS: guaiFENesin 200 MG/10 ML UDC PO (23:54)
[2023-04-01] MEDS: LACTATED RINGERS 500 ML 100 ML IV CONT (23:55)
[2023-04-01] MEDS: REMDESIVIR 200 MG/NS 250 ML 200 MG/250 ML BAG 250 MG IVPB (23:56)
[2023-04-02] VITALS (7 sets, daily range): BP systolic 158; BP diastolic 85; PULSE 82–102; RESP 18–20; TEMP 36.6; O2SAT 100
[2023-04-02] MEDS: IPRATROPIUM BR 0.02% INH SOLN 0.5 MG/2.5 ML VIAL INHALATION (02:52)
[2023-04-02] MEDS: LEVALBUTEROL NEB 1.25 MG/3 ML 0.63 MG INHALATION (02:52)
[2023-04-02] MEDS: cefTRIAXone 2 GM/NS 100 ML 2 GM/100 ML BAG IVPB (06:44)
[2023-04-02] MEDS: AZITHROMYCIN 500 MG/NS 250 ML 500 MG/250 ML BAG 250 MG IVPB (07:35)
[2023-04-02] MEDS: guaiFENesin 200 MG/10 ML UDC PO (07:35)
[2023-04-02 08:30] LABS: Glucose Point of Care 113 mg/dl (65-105)
[2023-04-02] MEDS: BENZONATATE 100 MG CAPSULE PO (09:26)
[2023-04-02] MEDS: METOPROLOL SUCCINATE EXT REL 50 MG TABCR PO (09:27)
[2023-04-02] MEDS: MONTELUKAST SODIUM 10 MG TABLET PO (09:28)
[2023-04-02] MEDS: ATORVASTATIN 40 MG TABLET PO (09:28)
[2023-04-02] MEDS: ASPIRIN 81 MG ENTERIC TABLET PO (09:28)
--- NOTE | 2023-04-02 10:46 | PM.DS ---
DS: Admitting Diagnosis Discharge Date 04/02/23 Admitting Diagnosis shortness of breath DS: Discharge Diagnosis Discharge Diagnosis (1) Asthma exacerbation: Code(s): J45.901 - Unspecified asthma with (acute) exacerbation Status: Acute Assessment and Plan: received breathing treatments usually only uses rescue inhaler at home ordered nebulizer for d/c continue dexamethasone for total of 10 days (2) COVID-19: Code(s): U07.1 - COVID-19 Status: Acute Assessment and Plan: No infiltrates Supportive care On dexamethasone Started Rocephin and Zithromax, d/c at discharge as CXR negative for pneumonia (3) Respiratory syncytial virus (RSV): Code(s): B33.8 - Other specified viral diseases Status: Acute Assessment and Plan: Supportive care (4) T2DM (type 2 diabetes mellitus): Code(s): E11.9 - Type 2 diabetes mellitus without complications Status: Acute Assessment and Plan: resume home medications as d/c counseled on monitoring blood sugar while on steroid DS: Summary Hospital Course Hospital Course: Patient is a 63 YO male with PMH of hypertension, type 2 diabetes mellitus, and controlled asthma.? Patient admitted from ED with generalized body aches and pains, fevers, chills, cough, and shortness of breath.?Patient tested positive for RSV and COVID. CXR negative for pneumonia. Patient satting fine on room air. He received dexamethasone and remdesivir. Received azithromycin and rocephin in ER. Will continue steroid for full 10 day course. He is in no distress. Denies SOB, chest pain or dyspnea. His asthma is otherwise well controlled. Will not continue antiviral therapy as he is on statin and not requiring additional oxygen to maintain normal saturations. AB therapy d/c as his chest XR was negative. Patient is stable for d/c home this morning. Status at Discharge Functional status at discharge: independent ambulation Overall status at discharge: patient is progressing back to baseline Time Spent with Patient Time attestation: Total time spent providing and/or coordinating discharge services: Exam Narrative: GENERAL: well nourished, non-toxic, in no acute distress. HEAD: Normocephalic, atraumatic. RESPIRATORY: Airway patent, lung sounds clear to auscultation. Minor wheeze at upper lobes. CARDIOVASCULAR: RRR without murmurs, rubs, or gallops. MUSCULOSKELETAL: Moves all extremities. No gross deformities. SKIN: Warm, dry, normal color. NEURO: A&O X3. normal speech. Cranial nerves II-XII grossly intact. Steady gait. PSYCHIATRIC: Appropriate mood and affect. Normal interaction. DS: Data Data Completed and Pending Labs on day of discharge: Labs from last 24 hours 04/02/23 04/01/23 04/01/23 08:19 23:29 19:59 WBC RBC Hgb Hct MCV MCH MCHC RDW Plt Count MPV Immature Gran % (Auto) Neut % (Auto) Lymph % (Auto) [place] % (Auto) Eos % (Auto) Baso % (Auto) Lymph # (Auto) [place] # (Auto) Eos # (Auto) Baso # (Auto) Abs Immat Gran (auto) Absolute Neuts (auto) Absolute Nucleated RBC Nucleated RBC % ESR PT 13.1 INR 1.0 D-Dimer < 0.27 Sodium Potassium Chloride Carbon Dioxide Anion Gap BUN Creatinine Estim Creat Clear Calc Estimated GFR Glucose POC Capillary Glucose 113 H Lactic Acid Calcium Total Bilirubin AST ALT Alkaline Phosphatase Troponin I C-Reactive Protein NT-Pro-B Natriuret Pep Total Protein Albumin 04/01/23 04/01/23 15:26 13:50 WBC 9.8 RBC 4.98 Hgb 14.2 Hct 43.6 MCV 87.6 MCH 28.5 MCHC 32.6 RDW 14.3 Plt Count 230 MPV 9.9 Immature Gran % (Auto) 0.4 Neut % (Auto) 84.1 H Lymph % (Auto) 8.5 L Weak[place] % (Auto) 5.7 Eos % (Auto) 0.8 Baso % (Auto) 0.5 Lymph # (Auto) 0.83 L [place] # (Auto) 0.6 Eos # (Auto) 0.1 Baso # (Au
--- NOTE | 2023-04-12 09:00 | PC.NURSE ---
Blood cultures are negative.
== END 2023-04-02 10:38 | disposition home or self-care (01) ==
LOC: ANHED 15:14 → ANH2MED 17:33 → ANH3MEDSUR 04-04 10:33
PROVIDERS: General Practice; Student in an Organized Health Care Education/Training Program; Admitting Provider Family Medicine; Emergency Provider Physician Assistant; PCP Internal Medicine; Visit Provider Internal Medicine
DX: J45.901 Unspecified asthma with (acute) exacerbation (principal); U07.1 COVID-19; B97.4 Respiratory syncytial virus as the cause of diseases classified elsewhere; G89.29 Other chronic pain; M54.9 Dorsalgia, unspecified; E11.9 Type 2 diabetes mellitus without complications; I25.2 Old myocardial infarction; E78.5 Hyperlipidemia, unspecified; I10 Essential (primary) hypertension; I25.10 Atherosclerotic heart disease of native coronary artery without angina pectoris; Z95.5 Presence of coronary angioplasty implant and graft; Z82.49 Family history of ischemic heart disease and other diseases of the circulatory system; Z79.82 Long term (current) use of aspirin; Z79.899 Other long term (current) drug therapy
CPT/HCPCS: 36415; 71045; 80053; 82948; 83605; 83880; 84484; 85025; 85380; 85610; 85652; 86140; 87040; 87637; 94640; 96361; 96365; 96375; A9270; G0378; J0248; J0456; J0696; J1885; J2930; J7030; J7120

== ENCOUNTER 2023-08-05 10:22 | Outpatient (CLI) | payer OTHER, SELFPAY ==
--- NOTE | ~2023-08-05 | XR_ITS ---
EXAMINATION: XR chest 2V Exam Date/Time: 08/05/2023 10:25 CDT HISTORY: Cough x2 weeks Comparison: 04/01/2023, 12/24/2018. RESULT: Lines, tubes, and devices: None. Lungs and pleura: Subsegmental right lower lobe opacity. Cardiomediastinal silhouette: Stable. Other: No acute osseous or upper abdominal finding. IMPRESSION: Subsegmental right lower lobe airspace disease presumably a focus of infection. Recommend radiographi c follow-up to ensure resolution. Reviewed, dictated and finalized at location K. IMPRESSION: Subsegmental right lower lobe airspace disease presumably a focus of infection. Recommend radiographic follow-up to ensure resolution.
== END 2023-08-05 10:23 | disposition home or self-care (01) ==
PROVIDERS: PCP Internal Medicine; Visit Provider Internal Medicine
DX: R05.9 Cough, unspecified (principal); R91.8 Other nonspecific abnormal finding of lung field
CPT/HCPCS: 71046

== ENCOUNTER 2023-08-30 15:00 | Outpatient (CLI) | payer OTHER, SELFPAY ==
--- NOTE | ~2023-08-30 | XR_ITS ---
XR chest 2V DATE: 08/30/2023 15:20 INDICATION: Cough, shortness of breath. Pneumonia follow-up. TECHNIQUE: 2 views COMPARISON: August 05, 2023 2 view chest FINDINGS: Normal heart size. No hilar or mediastinal enlargement. No pulmonary infiltrate or consolid ation, pleural effusion or pulmonary vascular congestion or pneumothorax. Diffuse hepatic skeletal hyperostosis of the thoracic spine. IMPRESSION: No active cardiopulmonary disease Reviewed, dictated and finalized at location B.
== END 2023-08-30 15:01 | disposition home or self-care (01) ==
LOC: CHSIMG 15:05
PROVIDERS: PCP Internal Medicine; Visit Provider Internal Medicine
DX: R05.9 Cough, unspecified (principal)
CPT/HCPCS: 71046

== ENCOUNTER 2023-11-24 09:01 | Outpatient (CLI) | payer OTHER, SELFPAY ==
[2023-11-24 09:14] LABS: Basophils Absolute Auto 0.04 K/mm3 (0.00-0.10); Basophils Percent Auto 0.6 % (0.0-1.0); Eosinophils Absolute Auto 0.17 K/mm3 (0.02-0.50); Eosinophils Percent Auto 2.6 % (1.0-6.0); Hematocrit 43.8 % (40.0-54.0); Hemoglobin 14.4 g/dL (14.0-18.0); Immature Granulocyte Absolute 0.01 K/mm3 (0.00-0.00); Immature Granulocyte Percent A 0.2 % (0.0-0.0); Lymphocytes Absolute Auto 1.71 K/mm3 (1.10-4.50); Lymphocytes Percent Auto 26.4 % (18.0-42.0); Mean Corpuscular HGB Conc 32.9 g/dL (32-36); Mean Corpuscular Hemoglobin 28.5 pg (27.0-31.0); Mean Corpuscular Volume 86.7 fL (78.0-102.0); Mean Platelet Volume 10.1 fl (8.7-11.0); Monocytes Absolute Auto 0.75 K/mm3 (0.10-0.90); Monocytes Percent Auto 11.6 % (2.0-11.0); Neutrophils Absolute Auto 3.79 K/mm3 (1.70-7.20); Neutrophils Percent Auto 58.6 % (50.0-70.0); Platelet Count Result 265 K/mm3 (150-420); Red Blood Count 5.05 M/mm3 (4.70-6.10); Red Cell Distribution Width 13.6 % (11.6-14.4); White Blood Count 6.5 K/mm3 (4.8-10.8)
[2023-11-24 10:44] LABS: Alanine Aminotransferase 33 U/L (16-63); Albumin Level 3.7 g/dL (3.4-5.0); Alkaline Phosphatase 68 U/L (46-116); Anion Gap 7 mmol/L (4-12); Aspartate Amino Transferase 13 U/L (15-37); Bilirubin,Total 0.5 mg/dL (0.00-1.00); Blood Urea Nitrogen 11 mg/dL (7-18); Calcium 9.4 mg/dL (8.5-10.1); Carbon Dioxide 29 mmol/L (21-32); Chloride 104 mmol/L (98-108); Cholesterol 149 mg/dL (0-200); Estimated Glomerular Filt Rate > 60; Free T4 Free Thyroxine 0.82 ng/dL (0.76-1.46); Glucose 94 mg/dL (70-99); HDL Direct 43 mg/dL (40-60); LDL Cholesterol Calculated 88 mg/dL (<130); Magnesium 1.9 mg/dL (1.8-2.4); Osmolality Calculated 289 mOsm/kg (285-295); Potassium 4.6 mmol/L (3.5-5.1); Prostate Specific Antigen 0.8 ng/mL (< OR = 4.0); Sodium 140 mmol/L (136-145); Thyroid Stimulating Hormone 1.61 uIU/mL (0.36-3.74); Total Protein 6.9 g/dL (6.4-8.2); Triglycerides 88 mg/dL (0-150); Vitamin B12 566 pg/mL (193-986)
== END 2023-11-24 09:02 | disposition home or self-care (01) ==
LOC: CHSLAB 09:03
PROVIDERS: PCP Internal Medicine; Visit Provider Internal Medicine
DX: E78.00 Pure hypercholesterolemia, unspecified (principal); K21.9 Gastro-esophageal reflux disease without esophagitis; N42.9 Disorder of prostate, unspecified
CPT/HCPCS: 36415; 80053; 80061; 82607; 83735; 84153; 84439; 84443; 85025

== ENCOUNTER 2024-01-26 16:18 | Emergency (ER) | payer OTHER, SELFPAY ==
--- NOTE | ~2024-01-26 | XR_ITS ---
XR hand LT min 3V Ordering provider: Bassem Cuellar MD History: . fall, Lt. hand pain . Comparison: None. FINDINGS: BONES: No definite acute fracture or dislocation. Lucency is seen in the distal epiphysis of the left radius which may be a summation shadow or a fracture. Follow-up advised. JOINT SPACES: Well maintained. SOFT TISSUES: Unremarkable. IMPRESSION: No acute osseous abnormality left hand. Reviewed, dictated and finalized at location A.
--- NOTE | ~2024-01-26 | XR_ITS ---
XR wrist LT min 3V Ordering provider: Bassem Cuellar MD History: . fall, Lt. wrist pain . Comparison: None. FINDINGS: BONES: No definite acute fracture or dislocation. Longitudinal Lucency is seen in the distal radius i n the area of the radial carpal joint area which may be a summation shadow. Follow-up advised. No de finite scaphoid fracture. JOINT SPACES: Well maintained. SOFT TISSUES: Normal. IMPRESSION: No definite acute osseous abnormality left wrist. Longitudinal Lucency seen in the distal radial epiphysis. Follow-up advised Reviewed, dictated and finalized at location A.
[2024-01-26 16:19] VITALS: BP 161/86; PULSE 56; RESP 18; TEMP 36.6; O2SAT 100
--- NOTE | 2024-01-26 16:20 | ED.FALL ---
HPI - Fall General Chief Complaint: Extremity Injury, Upper Stated Complaint: arm pain Time Seen by Provider: 01/26/24 16:19 Source: patient Mode of arrival: ambulatory Limitations: no limitations History of Present Illness HPI Narrative: patient came to the ED by private car complaining of left wrist and left thumb pain after tripping on tree branch and fell on the left hand. 30 minutes prior to arrival. No other injuries. Related Data Home Medications Medication Instructions Recorded Confirmed aspirin 81 mg tablet,delayed 81 mg PO DAILY 03/12/19 04/01/23 release atorvastatin 40 mg tablet 40 mg PO DAILY 03/12/19 04/01/23 metoprolol succinate 50 mg 50 mg PO DAILY 08/09/19 04/01/23 tablet,extended release 24 hr ezetimibe 10 mg tablet (Zetia) 10 mg PO DAILY 07/27/21 04/01/23 montelukast 10 mg tablet 10 mg PO DAILY 12/18/21 04/01/23 Allergies Allergy/AdvReac Type Severity Reaction Status Date / Time No Known Allergies Allergy Verified 04/01/23 09:35 Review of Systems Review of Systems: All systems reviewed & are unremarkable except as noted in HPI and below PMFSH Past Medical History Medical History (Updated 01/26/24 @ 17:02 by Bassem Cuellar MD) Asthma History of heart attack Hyperlipemia Hypertension Surgical History Surgical History History of eye surgery multiple eye surgery [id number] Hx of heart artery stent 2004 Family History Family History Father Pneumonia Sibling Throat cancer Unknown Heart disease Hypertension Allergies Social History Social History Smoking status: Never smoker Alcohol intake: never Substance use: never Do You Feel Safe in your Home?: Yes Lack of Transportation: No Lack of Food: Never True Current Housing: I Have Housing Concerned About Future Housing: No Difficulty Paying Gas/Electric Bills: No Difficulty Paying for Meds: No Currently Unemployed: No Education: Master's Degree or Higher Difficulty w/ Childcare or Family Care: No Living arrangements: with family Occupation/Education: occupation 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 Musculoskeletal: left wrist exam showed diffuse tenderness, no bruises, no swelling, no deformity, slight limited range of motion. Neurologic: Alert and oriented ?3, [employer]OP[employer] is normal as tested, no gross motor deficit Course Vital Signs Vital signs: Vital Signs Temperature 36.6 C 01/26/24 16:19 Pulse Rate 56 L 01/26/24 16:19 Respiratory Rate 18 01/26/24 16:19 Blood Pressure 161/86 H 01/26/24 16:19 Pulse Oximetry 100 01/26/24 16:19 Oxygen Delivery Room Air 01/26/24 16:19 Temperature 36.6 C 01/26/24 16:19 Pulse Rate 56 L 01/26/24 16:19 Respiratory Rate 18 01/26/24 16:19 Blood Pressure 161/86 H 01/26/24 16:19 Pulse Oximetry 100 01/26/24 16:19 Oxygen Delivery Room Air 01/26/24 16:19 MDM - Fall MDM Narrative Medical decision making narrative:
[2024-01-26] MEDS: IBUPROFEN 600 MG TABLET PO (16:26)
[2024-01-26] MEDS: HYDROcodone/acetaminophen (*CRX) 5-325 MG TABLET 1 TAB PO (16:27)
== END 2024-01-26 17:14 | disposition home or self-care (01) ==
PROVIDERS: Emergency Provider Emergency Medicine; PCP Internal Medicine
DX: S62.102A Fracture of unspecified carpal bone, left wrist, initial encounter for closed fracture (principal); I10 Essential (primary) hypertension; I25.2 Old myocardial infarction; W01.0XXA Fall on same level from slipping, tripping and stumbling without subsequent striking against object, initial encounter
CPT/HCPCS: 29125; 73110; 73130; 99284; A4565; A9270

== ENCOUNTER 2024-05-30 12:53 | Outpatient (CLI) | payer OTHER, SELFPAY ==
--- NOTE | ~2024-05-30 | XR_ITS ---
Clinical Indication: Cough PA and lateral views of the chest: Comparison: 08/30/2023 Findings: The lungs are clear, without evidence of focal consolidation or pleural effusion. Cardiome diastinal silhouette is within normal limits. Bones and soft tissues are unremarkable. Impression: Normal chest. Reviewed, dictated and finalized at [facility]. D WELFARE MANAGER Impression: Normal chest.
--- OUTSIDE RECORDS SUMMARY | 2024-05-30 13:17 | XMS_ITS | Clinical Summary ---
Author Organization [facility] Address [address] [place] [address] Phone Care Team Providers Care Trauma Registrar Name Role Phone Jewel Frances MD Primary Care Provider [phone] Allergies No known active allergies Medications atorvastatin (LIPITOR) 40 MG Tablet Take 40 mg by mouth daily. Active buPROPion SR (WELLBUTRIN SR) 150 MG TABLET SR 12 HR Take 150 mg by mouth 2 times daily. Active metoprolol Succinate (TOPROL-XL) 50 MG TABLET SR 24 HR Take 50 mg by mouth daily. Active montelukast (SINGULAIR) 10 MG Tablet Take 10 mg by mouth daily. Active naproxen (NAPROSYN) 500 MG Tablet Take 500 mg by mouth 2 times daily. Active traZODone (DESYREL) 150 MG Tablet Take 150 mg by mouth nightly as needed. Active Aspirin 81 MG Tablet Take 81 mg by mouth daily. Active nitroGLYCERIN (NITROSTAT) 0.4 MG SL Tablet 0.4 mg by Sublingual route every 5 minutes as needed for Chest pain. Active HYDROcodone-suma taminophen (NORCO) 7.5-325 MG Tablet Take 1 Tab by mouth every 6 hours as needed for Moderate or more severe pain. Active sildenafil citrate (VIAGRA) 100 MG Tablet Take 100 mg by mouth as needed. 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 Gender Identity Not on file Sexual Orientation Not on file Last Filed Vital Signs Vital Sign Reading Time Taken Comments Blood Pressure 142/80 09/11/2019 10:42 AM CDT Pulse 56 09/11/2019 10:42 AM CDT Temperature 36.8 C (98.3 F) 09/11/2019 10:42 AM CDT Respiratory Rate - - Oxygen Saturation 100% 09/11/2019 10:42 AM CDT Inhaled Oxygen Concentration - - Weight - - Height - - Body Mass Index - - Plan of Treatment Health Maintenance Due Date Last Done Comments Hepatitis C Virus (HCV) Screening 1960 TdaP Immunization 1960 Colonoscopy 2006 Colorectal Cancer Screening 2006 Cologuard 2011 Immunochemical Fecal Occult Blood 2011 Pneumococcal Immunization (5 0+ years) (1 of 1 - PCV) 2011 Zoster Immunization (1 of 2) 2011 PSA Discussion 02/28/2016 Influenza Immunization (#1) 2023 02/02/2015 SARS-COV-2 Immunization (2 - season) 2023 11/11/2020 Respiratory Syncytial Virus (RSV) Immunization (Adult) (1 - 1-dose 75+ series) 02/28/2036 Hepatitis B Immunization Aged Out No longer eligible based on patient's age to complete this topic Meningococcal Immunization (ACWY) Aged Out No longer eligible based on patient's age to complete this topic Pneumococcal Immunization Combined Aged Out No longer eligible based on patient's age to complete this topic Rotavirus Immunization Aged Out No lo nger eligible based on patient's age to complete this topic Insurance [place]ICAID [place] Care Teams Trauma Registrar Relationship Specialty Start Date End Date Jewel Frances MD [address] [address] PCP - General Internal Medicine 06/06/19
--- OUTSIDE RECORDS SUMMARY | 2024-05-30 13:17 | XMS_ITS | Patient Health Summary ---
Author Organization [facility] Address [address] [place] [address] Care Team Providers Care Director Dance Name Role Phone Jewel Frances MD Primary Care Provider [phone] [facility],non-owned Affiliates and Associated Physician Practices is amultiple site organization consisting of ambulatory clinics and hospital sitesin [place], [place], [place] and [place]. This disclosure is being madepursuant to the Care Everywhere program and may not contain all information available regarding this patient. Last updated 17.[facility] [employer] Allergies No known active allergies Medications * Be aware that medications may not be up to date on this document. Alwaysverify current medications with the patient. * traMADol (ULTRAM) 50 MG tablet(Started 05/06/2018) Take 1 tablet by mouth every 6 hours as needed for Pain Social History Tobacco Use Types Packs/Day Years Used Date Smoking Tobacco: Never Smokeless Tobacco: Never Alcohol Use Standard Drinks/Week Comments No 0 (1 standard drink = 0.6 oz pur e alcohol) Sex and Gender Information Value Date Recorded Sex Assigned at Not on file Gender Identity Not on file Sexual Orientation Not on file Last Filed Vital Signs Vital Sign Reading Time Taken Comments Blood Pressure 147/99 05/06/2018 12:53 PM CASE WORKER Pulse 88 05/06/2018 12:53 PM CASE WORKER Temperature 36.9 C (98.4 F) 05/06/2018 12:53 PM CASE WORKER Respiratory Rate 16 05/06/2018 12:53 PM CASE WORKER Oxygen Saturation 100% 05/06/2018 12:53 PM CASE WORKER Inhaled Oxygen Concentration - - Weight 102.1 kg (225 lb) 05/06/2018 12:53 PM CASE WORKER Height 182.9 cm (6') 05/06/2018 12:53 PM CASE WORKER Body Mass Index 30.52 05/06/2018 12:53 PM CASE WORKER Procedures * BASIC METABOLIC PANEL (CALCIUM TOTAL)(Performed 05/06/2018) * CBC W AUTO DIFFERENTIAL(Performed 05/06/2018) Results * (ABNORMAL) CBC W AUTO DIFFERENTIAL (05/06/2018 2:26 PM CASE WORKER) WBC 11.7(H) 3.5 - 10.5 10 3/uL 05/06/2018 2:41 PM [facility] RBC 5.36 4.30 - 5.70 10 6/uL 05/06/2018 2:41 PM [facility] Hemoglobin 15.1 13.5 - 17.5 g/dL 05/06/2018 2:41 PM [facility] Hematocrit 46.4 39.0 - 50.0 % 05/06/2018 2:41 PM [facility] MCV 86.6 81.0 - 97.0 fL 05/06/2018 2:41 PM [facility] MCH 28.2 28.0 - 34.0 pg 05/06/2018 2:41 PM [facility] MCHC 32.5 32.0 - 36.0 g/dL 05/06/2018 2:41 PM [facility] Platelet Count 325 150 - 400 10 3/uL 05/06/2018 2:41 PM [facility] RDW-SD 41.1 36.0 - 50.0 fL 05/06/2018 2:41 PM [facility] RDW-CV 12.9 11.2 - 14.8 % 05/06/2018 2:41 PM [facility] MPV 9.7 9.3 - 12.8 fL 05/06/2018 2:41 PM [facility] nRBC Absolute 0.00 0 10 3/uL 05/06/2018 2:41 PM [facility] nRBC Auto 0.0 0 /100 WBC 05/06/2018 2:41 PM [facility] Neutrophils % 71.6(H) 35.0 - 70.0 % 05/06/2018 2:41 PM [facility] Lymphocytes % 18.3(L) 19.7 - 55.1 % 05/06/2018 2:41 PM [facility] Monocytes % 7.4 3.0 - 15.0 % 05/06/2018 2:41 PM [facility] Eosinophils % 2.1 0.0 - 6.0 % 05/06/2018 2:41 PM [facility] Basophil % 0.3 0.0 - 1.5 % 05/06/2018 2:41 PM [facility] Neutrophils Absolute 8.4(H) 1.6 - 7.0 10 3/uL 05/06/2018 2:41 PM [facility] Lymphocyte Absolute 2.1 0.8 - 2.9 10 3/uL 05/06/2018 2:41 PM [facility] Monocytes Absolute 0.86(H) 0.14 - 0.66 10 3/uL 05/06/2018 2:41 PM [facility] Eosinophils Absolute 0.24 0.00 - 0.45 10 3/uL 05/06/2018 2:41 PM [facility] Basophils Absolute 0.04 0.00 - 0.06 10 3/uL 05/06/2018 2:41 PM [facility] Immature Granulocytes % 0.3 0.0 - 1.0 % 05/06/2018 2:41 PM [facility] Blood BLOOD SPECIMEN / Unknown Venipuncture / Unknown 05/06/2018 2:26 PM CASE WORKER 05/06/2018 2:37 PM CASE WORKER Patricia De La Cruz MD LAB - HEMATOLOGY ORD ERABLES Performing Organization Address City/State/[facility] Co de Phone Number [address] [phone] * (ABNORMAL) BASIC METABOLIC PANEL (CALCIUM TOTAL) (05/06/2018 2:26 PM CASE WORKER) BUN 15 7 - 26 mg/dL 05/06/2018 2:59 PM [facility] Creatinine 1.1 0.6 - 1.2 mg/dL 05/06/2018 2:59 PM [facility] Sodium 141 136 - 145 mmol/L 05/06/2018 2:59 PM [facility] Potassium 4.3 3.5 - 4.5 mmol/L 05/06/2018 2:59 PM [facility] Chloride 105 98 - 107 mmol/L 05/06/2018 2:59 PM [facility] CO2 23 22 - 29 mmol/L 05/06/2018 2:59 PM [facility] Glucose 92 70 - 115 mg/dL 05/06/2018 2:59 PM [facility] Calcium 10.6(H) 8.4 - 10.2 mg/dL 05/06/2018 2:59 PM [facility] Anion Gap 17 8 - 18 05/06/2018 2:59 PM [facility] BUN/Creatinine Ratio 14 7 - 23 05/06/2018 2:59 PM [facility] Osmolality Calculated 292 270 - 300 mOsm/kg 05/06/2018 2:59 PM [facility] eGFR >60 >60 mL/min/1.7 3 m2 05/06/2018 2:59 PM [facility] Blood BLOOD SPECIMEN / Unknown Venipuncture / Unknown 05/06/2018 2:26 PM CASE WORKER 05/06/2018 2:36 PM CASE WORKER Patricia De La Cruz MD LAB - CHEMISTRY KIKO DERAS [facility] Organization Address City/State/ZIP Co de Phone Number [facility] [address] [phone] Care Teams Director Dance Relationship Specialty Start Date End Date Jewel Frances MD [facility] [address] [address] [place] [address] PCP - General Internal Medicine 05/06/18
--- OUTSIDE RECORDS SUMMARY | 2024-05-30 13:17 | XMS_ITS | Clinical Summary ---
Author Organization [facility] Address [facility] [place] [address] Care Team Providers Care Ip Paralegal Name Role Phone Jewel Frances MD Primary Care Provider [phone] Allergies No known active allergies Medications atorvastatin 40 MG tablet 4 07/04/2018 Active naproxen 500 MG tablet 4 07/04/2018 Active traZODone 150 MG tablet 06/07/2018 Active baclofen 10 MG tablet Take 10 mg by mouth daily. 0 09/10/2018 Active ibuprofen 200 MG tablet Take 200 mg by mouth every 6 (six) hours as needed for Pain. Active acetaminophen 500 MG tablet Take 1,000 mg by mouth every 6 (six) hours as needed for Pain. Active omeprazole 20 MG capsule Take 20 mg by mouth daily. Active Active Problems Problem Noted Date Diagnosed Date Closed dislocation of metaca rpophalangeal (MCP) joint of right ring finger 12/03/2021 Pars defect with spondylolisthesis 09/17/2018 Lumbar degenerative disc disease 09/17/2018 Lumbar foraminal stenosis 09/17/2018 H/O heart artery stent 07/30/2018 Social History Tobacco Use Types Packs/Day Years Used Date Smoking Tobacco: Never Sex and Gender Information Value Date Recorded Sex Assigned at Not on file Legal Sex Male 10:54 AM CDT Gender Identity Not on file Sexual Orientation Not on file Last Filed Vital Signs Vital Sign Reading Time Taken Comments Blood Pressure 140/80 09/17/2018 2:40 PM CDT Pulse 89 09/17/2018 2:40 PM CDT Temperature - - Respiratory Rate - - Oxygen Saturation - - Inhaled Oxygen Concentration - - Weight 106.1 kg (233 lb 12.8 oz) 09/17/2018 2:40 PM CDT Height 182.9 cm (6') 09/17/2018 2:40 PM CDT Body Mass Index 31.71 09/17/2018 2:40 PM CDT Plan of Treatment Health Maintenance Due Date Last Done Comments Colorectal Cancer Screening Colonoscopy (10 Years) 1961 Annual Physical 02/28/1964 Hepatitis C 1979 DTaP, Tdap and Td Vaccines (1 - Tdap) 02/28/1980 Zoster Vaccines (1 of 2) 2011 COVID-19 Vaccine (2 - season) 2023 11/11/2020 Influenza Adult (#1) 2024 03/01/2021, 01/14/2020, 03/01/2019, Additional history exists RSV Immunization or 60+ Years (1 - 1-dose 75+ series) 02/28/2036 Meningococcal B Vaccine Aged Out No l onger eligible based on patient's age to complete this topic Meningococcal Vaccine Aged Out No silvia viki eligible based on patient's age to complete this topic Pneumococcal Vaccine: Pediatrics (0 to 5 Years) and At-Risk Patients (6 to 64 Years) Aged Out No longer eligible based on patient's age to complete this topic RSV Immunizations Under 20 Months Aged Out No longer eligible based on patient's age to complete this topic Insurance [place] Care Teams Ip Paralegal Relationship Specialty Start Date End Date Jewel Frances MD [address] [address] PCP - General INTERNAL MEDICINE 06/28/18
--- OUTSIDE RECORDS SUMMARY | 2024-05-30 13:17 | XMS_ITS | Data Portability ---
Author Organization [place] [facility], Main Office Address [address] [place] [address] Assessment No assessment recorded. Plan of Treatment Reminders Order Date Submit Date Provider Last Modified By Organization Details Last Modified Time Details Appointments None recorded. Lab PSA, serum or plasma [address] (Lab), [address] [place] [address], [address], 4 14:18:50 magnesium , serum or plasma [address] (Lab), [address] [place] [address], [address], 4 14:18:50 vitamin B12, serum [address] (Lab), [address] [place] [address], [address], 4 14:18:50 lipid panel, serum [address] (Lab), [address] [place] [address], [address], 4 14:18:49 CMP, serum or plasma [email or web address] [place] [address] (Lab), [address] [place] [address], [address], 4 12:28:09 CBC w/ auto diff [address] (Lab), [address] [place] [address], [address], 4 14:18:49 TSH, serum or plasma [address] (Lab), [address] [facility] [address], [place], [address], 4 14:18:50 T4, free, serum [address] (Lab), [address] [facility] [address], [place], [address], 4 12:28:10 HbA1c (hemoglob in A1c), blood [address] (Lab), [facility] [address], [place], [address], 4 16:34:06 lipid panel, serum 024 024 [facility] (Lab), [address] [place] [address] [address], [place], [address], 4 13:26:12 CMP, serum or plasma 024 024 [facility] (Lab), [facility] [address], [place], [address], 4 13:26:17 TSH, serum or plasma 024 024 [facility] (Lab), [facility] [address], [place], [address], 4 13:29:52 T4, free, serum 024 024 [facility] (Lab), [facility] [address], [place], [address], 4 13:29:04 CBC w/ auto diff 024 024 [facility] (Lab), [address] [place] [address] [address], [place], [address], 4 12:42:08 PSA, serum or plasma [address] (Lab), [address] [place] [address] [address], [place], [address], 3 14:07:23 lipid panel, serum 023 023 [facility] (Lab), [address] [place] [address] [address], [place], [address], 3 12:41:42 CMP, serum or plasma 023 023 [facility] (Lab), [address] [place] [address] [address], [place], [address], 3 12:41:42 TSH, serum or plasma 023 023 [facility] (Lab), [address] [place] [address] [address], [place], [address], 3 12:41:42 T4, free, serum [address] (Lab), [address] [place] [address] [address], [place], [address], 3 14:07:23 CBC w/ auto diff [address] (Lab), [address] [place] [address] [address], [place], [address], 3 14:07:23 Referral None recorded. Procedures None recorded. Surgeries None recorded. Imaging None recorded. Medication Orders None recorded. Patient TargetsNo targets recorded. Patient Instructions Encounter Date Encounter Id Patient Instructions Last Modified By Organization Details Last Modified Time 10/18/2022 [id number] Coronary artery disease stable-hyperlipide brenton -GERD -anxiety disorder. Check blood work consisting of CBC, CMP, lipid, thyroid, magnesium, B12 and PSA. Follow-up in six months [email or web address] Not available 10/18/2022 15:13:32 04/14/2023 [id number] CAD -hyperlipidemia -hyperglycemia. Will check blood work consisting of CBC, CMP, lipid, thyroid and hemoglobin A1c level. Continue on current Rx follow-up in six months. Portions of the record may have been created with voice recognition software. Occasional wrong-word or s ound-a-like substitutions may have occurred due to the inherent limitations of voice recognition software. Read the chart carefully and recognize, using context, where substitutions have occurred. [email or web address] Not available 04/14/2023 12:36:27 11/09/2023 [id number] Follow-up edwards ry artery disease, hyperlipidemia, GERD as well as anxiety all clinically stable. Will check blood work consisting of CBC, CMP, lipid, thyroid and PSA. Continue on current Rx follow-up in six months. Next Appointment: 6 Months Approximate Date: 05/07/2024 Portions of the record may have been created with voice recognition software. Occasional wrong-word or s ound-a-like substitutions may have occurred due to the inherent limitations of voice recognition software. Read the chart carefully and recognize, using context, where substitutions have occurred. [email or web address] Not available 11/09/2023 14:57:06 Reason for Referral None Reported. Results Created Date Observation Date Name Description Value Unit Range Abnormal Flag Note LastModifiedBy Organization Detail LastModifiedTime 04/18/1904/18/2023 CBC/C OMPLE TE BLD COUNT W/DIF F white blood cells 6.2 x10'3 /uL 4.2-10 .8 Not Available [facility] (Lab) [address] [place], [address], 04/18/2023 12:42:08 04/18/1904/18/2023 CBC/C OMPLE TE BLD COUNT W/DIF F red blood cells 4.94 x10'6 /uL 4.10-5 .80 Not Available [facility] (Lab) [address] [place], [address], 04/18/2023 12:42:08 04/18/1904/18/2023 CBC/C OMPLE TE BLD COUNT W/DIF F hemoglobin 14.2 g/dL 13.2-1 7.0 Not Available [facility] (Lab) [address] [place], [address], 04/18/2023 12:42:08 04/18/1904/18/2023 CBC/C OMPLE TE BLD COUNT W/DIF F hematocrit 44.5 % 39.3-5 0.0 Not Available [facility] (Lab) [address] [place], [address], 04/18/2023 12:42:08 04/18/19 24 04/18/2023 CBC/C OMPLE TE BLD COUNT W/DIF F mean red cell volume 90.1 fL 80.0-9 7.0 Not Available [facility] (Lab) [address] [place], [address], 04/18/2023 12:42:08 04/18/19 24 04/18/2023 CBC/C OMPLE TE BLD COUNT W/DIF F mean red cell hemoglobin 28.7 pg 27.0-3 3.0 Not Available [facility] (Lab) [address] [place], [address], 04/18/2023 12:42:08 04/18/19 24 04/18/2023 CBC/C OMPLE TE BLD COUNT W/DIF F mean RBC HGB concentratio n 31.9 g/dL 31.0-3 6.0 Not Available [facility] (Lab) [address] [place], [address], 04/18/2023 12:42:08 04/18/19 24 04/18/2023 CBC/C OMPLE TE BLD COUNT W/DIF F red cell distribution width 14.4 % 11.8-1 5.5 Not Available [facility] (Lab) [address] [place], [address], 04/18/2023 12:42:08 04/18/19 24 04/18/2023 CBC/C OMPLE TE BLD COUNT W/DIF F platelets 216 x10'3 /uL 150-40 0 Not Available [facility] (Lab) [address] [place], [address], 04/18/2023 12:42:08 04/18/19 24 04/18/2023 CBC/C OMPLE TE BLD COUNT W/DIF F mean platelet volume 10.4 fL 9.0-12 .4 Not Available [facility] (Lab) [address] [place], [address], 04/18/2023 12:42:08 04/18/19 24 04/18/2023 CBC/C OMPLE TE BLD COUNT W/DIF F neutrophils 59.0 % 39.0-7 2.0 Not Available [facility] (Lab) [address] [place], [address], 04/18/2023 12:42:08 04/18/19 24 04/18/2023 CBC/C OMPLE TE BLD COUNT W/DIF F lymphocytes 27.3 % 16.0-4 7.0 Not Available [facility] (Lab) [address] [place], [address], 04/18/2023 12:42:08 04/18/19 24 04/18/2023 CBC/C OMPLE TE BLD COUNT W/DIF F monocytes 10.1 % 5.0-12 .0 Not Available [facility] (Lab) [address] [place], [address], 04/18/2023 12:42:08 04/18/19 24 04/18/2023 CBC/C OMPLE TE BLD COUNT W/DIF F eosinophils 2.6 % 1.0-7. 0 Not Available [facility] (Lab) [address] [place], [address], 04/18/2023 12:42:04/18/19 24 04/18/2023 CBC/C OMPLE TE BLD COUNT W/DIF F basophils 0.5 % 0.0-2. 0 Not Available [facility] (Lab) [address] [place], [address], 04/18/2023 12:42:08 04/18/19 24 04/18/2023 CBC/C OMPLE TE BLD COUNT W/DIF F immature granulocytes 0.5 % 0.00-0 .50 Not Available [facility] (Lab) [address] [place], [address], 04/18/2023 12:42:08 04/18/19 24 04/18/2023 CBC/C OMPLE TE BLD COUNT W/DIF F neutrophils, absolute count 3.67 x10'3 /uL 1.5-8. 0 Not Available [facility] (Lab) [address] [place], [address], 04/18/2023 12:42:08 04/18/19 24 04/18/2023 CBC/C OMPLE TE BLD COUNT W/DIF F lymphocytes, absolute count 1.70 x10'3 /uL 1.07-3 .43 Not Available [facility] (Lab) [address] [place], [address], 04/18/2023 12:42:08 04/18/19 24 04/18/2023 CBC/C OMPLE TE BLD COUNT W/DIF F monocytes, absolute count 0.63 x10'3 /uL 0.29-0 .99 Not Available [facility] (Lab) [address] [place], [address], 04/18/2023 12:42:08 04/18/19 24 04/18/2023 CBC/C OMPLE TE BLD COUNT W/DIF F eosinophils, absolute count 0.16 x10'3 /uL 0.02-0 .53 Not Available [facility] (Lab) [address] [place], [address], 04/18/2023 12:42:08 04/18/19 24 04/18/2023 CBC/C OMPLE TE BLD COUNT W/DIF F basophils, absolute count 0.03 x10'3 /uL 0.01-0 .08 Not Available [facility] (Lab) [address] [place], [address], 04/18/2023 12:42:08 04/18/19 24 04/18/2023 CBC/C OMPLE TE BLD COUNT W/DIF F immature granulocytes ,absolute 0.03 x10'3 /uL 0.00-0 .05 Not Available [facility] (Lab) [address] [place], [address], 04/18/2023 12:42:08 04/18/19 24 04/18/2023 CBC/C OMPLE TE BLD COUNT W/DIF F nucleated red blood cells 0.0 % -0 Not Available [facility] (Lab) [address] [place], [address], 04/18/2023 12:42:08 04/18/19 24 04/18/2023 CBC/C OMPLE TE BLD COUNT W/DIF F NRBC# 0.00 x10'3 /uL Not Available [facility] (Lab) [address] [place], [address], 04/18/2023 12:42:08 04/18/1904/18/2023 LIPID PANEL cholesterol 149 mg/dL 140-19 9 NIH BRIANA NSUS RECOM MENDA TION FOR WILDER STERO L: ADULT CHILD LOW RISK: <200 <170 BORDE RLINE : <200- 239 ----- HIGH RISK: >240 >200 Not Available [facility] (Lab) [address] [place], [address], 04/18/2023 13:26:12 04/18/1904/18/2023 LIPID PANEL triglyceride s 72 mg/dL 0-150 NIH BRIANA NSUS REPOR T RECOM MENDA TION FOR TRIGL YCERI CLARICE: ADULT CHILD LOW RISK: <150 ----- BODER LINE: 150-1 99 ----- HIGH RISK: >200 ----- Not Available [facility] (Lab) [address] [place], [address], 04/18/2023 13:26:12 04/18/19 24 04/18/2023 LIPID PANEL HDL cholesterol 48 mg/dL 40- Not Available [facility] (Lab) [address] [place], [address], 04/18/2023 13:26:12 04/18/19 24 04/18/2023 LIPID PANEL LDL cholesterol, calculated 87 mg/dL 0-130 NIH BRIANA NSUS REPOR T RECOM MENDA TIONS FOR LDL: ADULT CHILD LOW RISK <130 <110 (OPTI MAL LDL) <100 ----- BORDE RLINE : 130-1 59 ----- HIGH RISK: >160 >130 A TRIGL YCERI DE RESUL T >400 INVAL IDATE S THE CALCU LATIO N FOR LDL FRACT IONAT ION - THE LDL RESUL T WILL NOT BE REPOR RIA. Not Available [facility] (Lab) [address] [place], [address], 04/18/2023 13:26:12 04/18/19 24 04/18/2023 COMPR EHENS [place] METAB OLIC PANEL sodium 137 mmol/ L 137-14 5 Not Available [facility] (Lab) [address] [place], [address], 04/18/2023 13:26:17 04/18/19 24 04/18/2023 COMPR EHENS [place] METAB OLIC PANEL potassium 5.0 mmol/ L 3.5-5. 1 Not Available [facility] (Lab) [address] [place], [address], 04/18/2023 13:26:17 04/18/19 24 04/18/2023 COMPR EHENS [place] METAB OLIC PANEL chloride 104 mmol/ L 98-107 Not Available [facility] (Lab) [address] [place], [address], 04/18/2023 13:26:17 04/18/19 24 04/18/2023 COMPR EHENS [place] METAB OLIC PANEL carbon dioxide 28 mmol/ L 22-30 Not Available [facility] (Lab) [address] [place], [address], 04/18/2023 13:26:17 04/18/19 24 04/18/2023 COMPR EHENS [place] METAB OLIC PANEL anion gap 10.0 mmol/ L 14-22 low Not Available [facility] (Lab) [address] [place], [address], 04/18/2023 13:26:17 04/18/19 24 04/18/2023 COMPR EHENS [place] METAB OLIC PANEL glucose 102 mg/dL 70-99 high Not Available [facility] (Lab) [address] [place], [address], 04/18/2023 13:26:17 04/18/19 24 04/18/2023 COMPR EHENS [place] METAB OLIC PANEL BUN 16 mg/dL 8-19 Not Available [facility] (Lab) [address] [place], [address], 04/18/2023 13:26:17 04/18/19 24 04/18/2023 COMPR EHENS [place] METAB OLIC PANEL creatinine 0.87 mg/dL 0.66-1 .25 Not Available [facility] (Lab) [address] [place], [address], 04/18/2023 13:26:17 04/18/19 24 04/18/2023 COMPR EHENS [place] METAB OLIC PANEL GFR >60 Refer ence Range : [place] GFR Healt hy Adult : >60 mL/mi n/1.7 3 m2 Chron ic Kidne y Disea se: 15-60 mL/mi n/1.7 3 m2 Kidne y Failu re: <15/m L/min /1.73 m2 www.n iddk. nih.g ov The MDRD study equat ion has not been valid ated in child chico <18 years of age; pregn ant women ; the elder ly >85 years of age; or in some racia l or ethni c subgr oups, such as Hispa nics. Outsi de the valid ated dioni eters , estim ated GFR is less accur ate, requi ring clini haylee judgm ent on a case- by-ca se basis . Clini haylee inter preta tion for other races and ages must be made by the clini shonda. The MDRD study equat ion has not been valid ated for the evalu ation of serum creat inine relat ed to nutri yuliya l statu s or medic ation usage . For perso ns <18 years of age, a pedia tric GFR calcu lator is avail able on the [facility] websi te: https ://braden grfa.gabriela thurman/pr kathieess ional s/kdo qi/gf r_cal culat or Not Available [facility] (Lab) [address] [place], [address], 04/18/2023 13:26:17 04/18/19 24 04/18/2023 COMPR EHENS [place] METAB OLIC PANEL alkaline phosphatase 50 U/L 38-126 Not Available [facility] (Lab) [address] [place], [address], 04/18/2023 13:26:17 04/18/19 24 04/18/2023 COMPR EHENS [place] METAB OLIC PANEL alanine aminotransfe rase 26 U/L 0-50 Not Available [facility] (Lab) [address] [place], [address], 04/18/2023 13:26:17 04/18/19 24 04/18/2023 COMPR EHENS [place] METAB OLIC PANEL aspartate aminotransfe rase 21 U/L 15-46 Not Available [facility] (Lab) [address] [place], [address], 04/18/2023 13:26:17 04/18/19 24 04/18/2023 COMPR EHENS [place] METAB OLIC PANEL bilirubin, total 0.30 mg/dL 0.20-1 .30 Not Available [facility] (Lab) [address] [place], [address], 04/18/2023 13:26:17 04/18/19 24 04/18/2023 COMPR EHENS [place] METAB OLIC PANEL calcium 9.6 mg/dL 8.4-10 .2 Not Available [facility] (Lab) [address] [place], [address], 04/18/2023 13:26:17 04/18/19 24 04/18/2023 COMPR EHENS [place] METAB OLIC PANEL total protein 6.4 g/dL 6.3-8. 2 Not Available [facility] (Lab) [address] [place], [address], 04/18/2023 13:26:17 04/18/19 24 04/18/2023 COMPR EHENS [place] METAB OLIC PANEL albumin 3.6 g/dL 3.4-5. 0 Not Available [facility] (Lab) [address] [place], [address], 04/18/2023 13:26:17 04/18/19 24 04/18/2023 COMPR EHENS [place] METAB OLIC PANEL globulin 2.8 g/dL 2.6-4. 2 Not Available [facility] (Lab) [address] [place], [address], 04/18/2023 13:26:17 04/18/19 24 04/18/2023 COMPR EHENS [place] METAB OLIC PANEL A/G ratio 1.3 ratio 1.0-2. 0 Not Available [facility] (Lab) [address] [place], [address], 04/18/2023 13:26:17 04/18/19 24 04/18/2023 T4 FREE free T4 0.89 NG/dL 0.78-2 .19 Not Available [facility] (Lab) [address] [place], [address], 04/18/2023 13:29:04 04/18/19 24 04/18/2023 TSH thyroid-stim ulating hormone 1.320 uIU/m L 0.465- 4.680 Not Available [facility] (Lab) [address] [place], [address], 04/18/2023 13:29:52 04/18/19 24 04/18/2023 HEMOG LOBIN A1C HA1C 5.9 % 4.0-6. 0 Diabe rona Scree edith Crite celestine: <5.7% Consi stent with absen ce of diabe rona 5.7-6 .4% Consi stent with incre ased risk for diabe rona (pred iabet es) >OR=6 .5% Consi stent with diabe rona REFER ENCE: Diabe rona Care 2016, 39(Mathur ppl.1 ):s13 -s22 Not Available [facility] (Lab) [address] [place], [address], 04/18/2023 21:04:03 04/01/20 23 04/01/2023 XR, chest , 2 view No observ ation record ed. [email or web address] [address], [place], [address], 04/04/2023 12:14:07 05/05/19 24 05/04/2023 US, echoc ardio gram No observ ation record ed. [address] [facility] [address], [place], [address], 05/05/2023 14:41:24 05/05/19 24 05/04/2023 US, doppl er, venou s No observ ation record ed. [address] [facility] [address], [place], [address], 05/05/2023 14:43:29 05/24/19 24 05/24/2023 pharm acolo gic nucle ar stres s test No observ ation record ed. [address] [facility] [address], [place], [address], 05/25/2023 07:10:43 08/05/19 24 08/05/2023 XR, chest , 2 view No observ ation record ed. [address] [place], [address], 08/06/2023 09:05:32 08/06/19 24 08/05/2023 XR, chest , 2 view No observ ation record ed. [address] [place], [address], 08/07/2023 06:48:18 08/30/19 24 08/30/2023 XR, chest , 2 view No observ ation record ed. [address] [place], [address], 08/31/2023 07:45:26 08/31/19 24 08/30/2023 XR, chest , 2 view No observ ation record ed. [facility] (Imaging) [address] [place] [address], [address], 08/31/2023 13:46:09 01/26/20 24 01/26/2024 XR, wrist No observ ation record ed. [address] [place], [address], 01/26/2024 18:00:58 01/26/20 24 01/26/2024 XR, hand No observ ation record ed. [address] [place], [address], 01/28/2024 20:53:09 Result Notes None recorded. Problems Name Problem SNOMED Code Status Onset Date Resolution Date Notes Provider Name and Address Organization Details Recorded Time Hyperchole sterolemia 08401957 Active Not Available [facility] 3 15:58:44 Epiploic appendagit is 3818799744945 9109 Active 2016 Not Available [facility] 3 15:58:44 Acute sinusitis 46717209 Active 2021 Not Available [facility] 3 15:58:44 Cataract 711491485 Active Not Available [facility] 3 15:58:44 Fracture of metacarpal bone 361922901 Active 2021 Not Available [facility] 3 15:58:44 Fracture of metacarpal bone 989446813 Active 2021 Not Available [facility] 3 15:58:44 Glaucoma 16731388 Active Not Available [facility] 3 15:58:44 Disorder of prostate 00400613 Active 2022 Not Available [facility] 3 15:58:44 Obesity 805757945 Active 2022 Not Available [facility] 3 15:58:44 Painless rectal bleeding 209948660 Active 2021 Not Available [facility] 3 15:58:44 Anxiety 94698641 Active Not Available [facility] 3 15:58:44 Coronary arterioscl erosis 72307855 Active Not Available [facility] 3 15:58:44 Cervical radiculopa thy 20184400 Active 2021 Not Available [facility] 3 15:58:44 COVID-19 383983538 Active 2021 Not Available [facility] 3 15:58:45 Erectile dysfunctio n 277289862 Active 2021 Not Available [facility] 3 15:58:45 Closed fracture of metacarpal bone 403695133 Active 2022 AGAPITO [place] [facility] [employer] [facility] 3 10:33:23 Carpal tunnel syndrome of right wrist 8005928120808 08 Active 2022 Roshan Mendez MD [address], [place], [address] , [place] [facility] 3 13:08:08 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 2022 Roshan Mendez MD [address], [place], [address] , [place] [facility] 3 13:08:17 Gastroesop hageal reflux disease 004542130 Active 2022 Jewel Frances MD [address], [place], [address] , [place] [facility] 3 15:08:42 Wheezing 14405598 Active 2022 PACHECO [place] [facility] 3 10:10:49 Acute bronchitis 10291093 Active 2022 Jewel Frances MD [address], [place], [address] , [place] [facility] 3 10:36:02 Hyperglyce brenton 99021130 Active 2023 Jewel Frances MD [address], [place], [address] , [place] [facility] 4 12:31:45 Pharyngiti s 827589307 Active 2023 Jewel Frances MD [address], [place], [address] , [place] [facility] 4 11:55:55 Cough 02677841 Active 2023 PACHECO [place] [facility] 4 15:52:13 Problem Notes None recorded. Procedures Surgical History Date Name Laterality Status Provider Name and Address Organization Details Recorded Time Knee completed AGAPITO Jara [place] [facility] 08/02/2022 08:59:09 Imaging Results Imaging Date Name Status LastModified by Organization Details LastModified Time 04/01/2023 XR, chest, 2 view completed [email or web address] [facility] [address] [facility] [address], [place], [address], 04/04/2023 12:14:07 05/04/2023 US, echocardiogram completed [address] [facility] [address], [place], [address], 05/05/2023 14:41:24 05/04/2023 US, doppler, venous completed [address] [facility] [address], [place], [address], 05/05/2023 14:43:29 05/24/2023 pharmacologic nuclear stress test completed [address] [facility] [address], [place], [address], 05/25/2023 07:10:43 08/05/2023 XR, chest, 2 view completed [place] [address] [place], [address], 08/06/2023 09:05:32 08/05/2023 XR, chest, 2 view completed [place] [address] [place], [address], 08/07/2023 06:48:18 08/30/2023 XR, chest, 2 view completed [facility] [place] [address] [place], [address], 08/31/2023 07:45:26 08/30/2023 XR, chest, 2 view completed [email or web address] [facility] [address] [place] [address], [address], 08/31/2023 13:46:09 01/26/2024 XR, wrist completed [facility] [address] [place], [address], 01/26/2024 18:00:58 01/26/2024 XR, hand completed [email or web address] [facility] [address] [place], [address], 01/28/2024 20:53:09 Procedure Notes None recorded. Medical Equipment None Reported. Allergies No known drug allergies Medications Name Sig Start Date Stop Date Status Note LastModified by Organization Details LastModified Time losartan 50 mg tablet TAKE 1 TABLET BY MOUTH DAILY active Not Available Not Available No t Available amoxicillin 500 mg capsule TAKE 1 CAPSULE BY MOUTH THREE TIMES DAILY FOR 10 DAYS active Not Available Not Available No t Available atorvastati n 40 mg tablet TAKE 1 TABLET BY MOUTH DAILY 2024 active Not Available Not Available Not Avai lable Tylenol-Cod eine #4 300 mg-60 mg tablet Take 1 tablet every 6 hours by oral route. active Not Available Not Available No t Available bupropion HCl SR 150 mg tablet,12 hr sustained-r elease TAKE 1 TABLET BY MOUTH TWICE DAILY active Not Available Not Available No t Available Trusopt 2 % eye drops Instill 1 drop 3 times a day by ophthalmi c route. 2013 active Not Available Not Available Not Avai lable albuterol sulfate 2.5 mg/3 mL (0.083 %) solution for nebulizatio n USE 3 ML VIA NEBULIZER THREE TIMES DAILY NEEDED active Not Available Not Available No t Available azithromyci n 250 mg tablet Take 2 TABLET EVERY DAY by oral route for 1 day then one daily 11/08 completed Not Available Not Available Not Available aspirin 325 mg tablet Take 1 tablet every day by oral route. 2013 active Not Available Not Available Not Avai lable benzonatate 200 mg capsule Take 1 capsule 3 times a day by oral route. 11/08 completed Not Available Not Available Not Available metoprolol succinate ER 50 mg tablet,exte nded release 24 hr TAKE 1 TABLET BY MOUTH DAILY 2023 active Not Available Not Available Not Avai lable hydrocodone 5 mg-acetamin ophen 325 mg tablet TAKE 1 TABLET BY MOUTH ONCE DAILY active Not Available Not Available No t Available dexamethaso ne 6 mg tablet TAKE 1 TABLET BY MOUTH ONCE DAILY FOR 9 DAYS 11/08 completed Not Available Not Available Not Available Niaspan 500 mg tablet,exte nded release TAKE ONE TABLET BY MOUTH AT BEDTIME active Not Available Not Available No t Available fluorouraci l 5 % topical cream APPLY A SUFFICIEN T AMOUNT TO COVER THE LESIONS IN THE AFFECTED AREA(S) BY TOPICAL ROUTE 2 TIMES PER DAY 08/02 completed Not Available Not Available Not Available Tamiflu 75 mg capsule Take 1 capsule twice a day by oral route for 5 days. 10/24 completed Not Available Not Available Not Available tramadol 50 mg tablet Take 1 tablet every 6 hours by oral route. 10/21 completed Not Available Not Available Not Available sildenafil 100 mg tablet TAKE 1 TABLET BY MOUTH 1 HOUR BEFORE SEXUAL ACTIVITY 08/02 completed Not Available Not Available Not Available Nitrostat 0.[address] 1 tablet by sublingua l route. 08/02 completed Not Available Not Available Not Available Kenalog 10 mg/mL suspension for injection In office injection administe red by the provider 05/20 completed [facility]: [phone] Not Available Not Available Not Available baclofen 10 mg tablet TAKE 1 TABLET BY MOUTH 4 TIMES DAILY 04/19 completed Not Available Not Available Not Available hydrocodone 7.5 mg-acetamin ophen 325 mg tablet TAKE ONE TABLET BY MOUTH EVERY 6 HOURS NEEDED FOR PAIN active Not Available Not Available No t Available cephalexin 500 mg capsule TK 1 C PO Q 6 HOURS 07/13 completed Not Available Not Available Not Available trazodone 150 mg tablet TAKE 1 TABLET BY MOUTH EVERY DAY AT BEDTIME FOR SLEEP active Not Available Not Available No t Available ibuprofen 200 mg tablet Take 2 tablets every 6 hours by oral route. 07/18 completed Not Available Not Available Not Available montelukast 10 mg tablet TAKE 1 TABLET BY MOUTH EVERY DAY 2024 active Not Available Not Available Not Avai lable Levaquin 500 mg tablet Take 1 tablet every 24 hours by oral route. 01/01 completed Not Available Not Available Not Available metoprolol succinate ER 25 mg tablet,exte nded release 24 hr TAKE 1 TABLET BY MOUTH DAILY active Not Available Not Available No t Available methylpredn isolone 4 mg tablets in a dose pack FOLLOW PACKAGE DIRECTION S 04/21 completed Not Available Not Available Not Available albuterol sulfate HFA 90 mcg/actuati on aerosol inhaler INHALE 2 PUFFS BY MOUTH EVERY 4 HOURS active Not Available Not Available No t Available cefdinir 300 mg capsule Take 1 capsule every 12 hours by oral route. active Not Available Not Available No t Available fluticasone propionate 50 mcg/actuati on nasal spray,suspe nsion USE 2 SPRAY(S) IN EACH NOSTRIL ONCE DAILY 08/02 completed Not Available Not Available Not Available ipratropium bromide 0.02 % solution for inhalation INHALE 1 VIAL IN NEBULIZER EVERY 6 HOURS FOR 5 DAYS active Not Available Not Available No t Available naproxen 500 mg tablet TAKE 1 TABLET BY MOUTH TWICE DAILY 07/30 completed Not Available Not Available Not Available amoxicillin 875 mg-potassiu m clavulanate 125 mg tablet TAKE 1 TABLET BY MOUTH EVERY 12 HOURS 04/21 completed Not Available Not Available Not Available ezetimibe 10 mg tablet TAKE 1 TABLET BY MOUTH DAILY active Not Available Not Available No t Available Multivitami n 50 Plus tablet Take 1 tablet every day by oral route. 2022 active Not Available Not Available Not Avai lable Fish Oil 2013 active Not Available Not Available Not Avai lable multivitami n daily 05/20 completed Not Available Not Available Not Available Travatan Z 0.004 % eye drops Instill 1 drop every day by ophthalmi c route. 2013 active Not Available Not Available Not Avai lable Combigan 0.2 %-0.5 % eye drops Instill 1 drop every 12 hours by ophthalmi c route. 2013 active Not Available Not Available Not Avai lable Dulera 100 mcg-5 mcg/actuati on HFA aerosol inhaler Inhale 2 puffs twice a day by inhalatio n route. 10/24 completed Not Available Not Available Not Available ropivacaine (PF) 5 mg/mL (0.5 %) injection solution Take 2 mg by injection route. 05/20 completed Not Available Not Available Not Available Nexlizet 180 mg-10 mg tablet TAKE 1 TABLET BY MOUTH EVERY DAY 07/13 completed Not Available Not Available Not Available Paxlovid 300 mg (150 mg x 2)-100 mg tablets in a dose pack Take two of he 150 mg tablets and one of the 100 mg tablets twice daily for five days active Not Available Not Available No t Available Vitals Date Recorded Body height Body mass index (BMI) Body weight Pain severity - 0-10 verbal numeric rating [Score] - Reported Provider Name and Address Organization Details Last Updated DateTime 09/20/2022 182.88 cm 31.2 kg/m2 651806.25 g 8 AGAPITO Santa [facility] 09/20/2022 11:04:06 Date Recorded Body height Body mass index (BMI) Body weight Heart rate Body temperature Oxygen saturation Oxygen saturation in Arterial blood by Pulse oximetry Systolic blood pressure Diastolic blood pressure Provider Name and Address Organization Details Last Updated DateTime 3 182.88 cm 30.2 kg/m2 643973. 1 g 77 /min 97 [degF] 97 % 97 % 134 mm[Hg] 72 mm[Hg] [facility] 3 14:50:19 Date Recorded Body height Body mass index (BMI) Body weight Body temperature Heart rate Oxygen saturation Oxygen saturation in Arterial blood by Pulse oximetry Systolic blood pressure Diastolic blood pressure Provider Name and Address Organization Details Last Updated DateTime 4 182.88 cm 29.2 kg/m2 93382.3 6 g 97.8 [degF] 62 /min 98 % 98 % 126 mm[Hg] 80 mm[Hg] Laurie Kebede MA [facility] 4 12:01:31 Date Recorded Body height Body mass index (BMI) Body weight Heart rate Body temperature Oxygen saturation Oxygen saturation in Arterial blood by Pulse oximetry Systolic blood pressure Diastolic blood pressure Provider Name and Address Organization Details Last Updated DateTime 4 182.88 cm 29.3 kg/m2 73793.9 5 g 68 /min 97 [degF] 98 % 98 % 122 mm[Hg] 70 mm[Hg] [facility] 4 11:24:07 Date Recorded Body height Body mass index (BMI) Body weight Heart rate Body temperature Oxygen saturation Oxygen saturation in Arterial blood by Pulse oximetry Systolic blood pressure Diastolic blood pressure Provider Name and Address Organization Details Last Updated DateTime 4 182.88 cm 28.3 kg/m2 75332.8 1 g 57 /min 97.8 [degF] 98 % 98 % 110 mm[Hg] 70 mm[Hg] AGAPITO Mosley [place] [facility] 4 14:26:01 Social History Question Answer Notes LastModified by Organizat ion Details LastModified Time Tobacco Smoking Status Never Smoker Not Available [facility] 06/08/2022 15:57:24 Do You Have An Advance Directive? No [id number] Information not available 06/08/2022 What Is Your Level Of Alcohol Consumption? None MIGRATION.[id number] Information not available 06/08/2022 In The 14 Days Before Symptom Onset, Have You Had Close Contact With A Laboratory-confir med COVID-19 While That Case Was Ill? No [id number].[id number] Information not available 06/08/2022 In The 14 Days Before Symptom Onset, Have You Had Close Contact With A Person Who Is Under Investigation For COVID-19 While That Person Was Ill? No MIGRATION.[id number] Information not available 06/08/2022 What Type Of Diet Are You Following? REGULAR MIGRATION.[id number] Information not available 06/08/2022 Have There Been Any Changes To Your Family Or Social Situation? No MIGRATION.[id number] Information not available 06/08/2022 What Is The Fluoride Status Of Your Home? Unknown MIGRATION.25375 [id number] Information not available 06/08/2022 Do You Use Insect Repellent Routinely? No MIGRATION.[id number] Information not available 06/08/2022 Where Do You Live? [place] MIGRATION.[id number] [id number] Information not available 06/08/2022 Do You Have A Medical Power Of Wood Cutter? No MIGRATION.30925 85873 Information not available 06/08/2022 What Was The Date Of Your Most Recent Tobacco Screening? 05/20/2022 MIGRATION.[id number] Information not available 06/08/2022 Do You Have Any Pets? Yes MIGRATION.67022 34380 Information not available 06/08/2022 What Is Your Relationship Status? MIGRATION.[id number] Information not available 06/08/2022 Do You Use Your Seat Belt Or Car Seat Routinely? Yes MIGRATION.01097 11019 Information not available 06/08/2022 Do You Have Smoke And Carbon Monoxide Detectors In Your Home? Yes MIGRATION.37978 13355 Information not available 06/08/2022 Are You Passively Exposed To Smoke? No MIGRATION.12847 54722 Information not available 06/08/2022 Are There Any Smokers In Your House? No MIGRATION.57205 52573 Information not available 06/08/2022 Do You Use Sunscreen Routinely? Yes MIGRATION.68369 46244 Information not available 06/08/2022 Have You Recently Traveled Abroad? No MIGRATION.95990 18422 Information not available 06/08/2022 Do You Have Any Dietary Restrictions? No MIGRATION.27393 91397 Information not available 06/08/2022 Sex: Unknown Functional Status Question Answer Note LastModified by Organizat ion Details LastModified Time What is your exercise level? Moderate [id number] Information not available 06/08/2022 Mental Status None recorded. Family History Relationship Description Onset Age of this Age Resolved Age Notes LastModified by Organization Details LastModified Time Brother Family history of malignant neoplasm [id number] Not available 06/08/2022 15:57:26 Sister Diabetes mellitus MIGRATION.226 [id number] Not available 06/08/2022 15:57:26 Father Heart disease MIGRATION.589 [id number] Not available 06/08/2022 15:57:26 Father Hypertensive disorder MIGRATION.558 [id number] Not available 06/08/2022 15:57:27 Son Kidney disease MIGRATION.391 [id number] Not available 06/08/2022 15:57:27 Notes:Mother 61 fro m complications of back surgery Father 74 from CAD and Pneumonia One brother living with laryngeal CA and CAD Two sisters living one DM and CAD(2) Medical History Condition Response NERVE DISEASE N BLINDNESS N RHEUMATIC FEVER N KIDNEY STONES N BLADDER PROBLEMS N MRSA N OTHER # 1 N POLIO N LUNG DISEASE/DISORDER N HISTORY OF DRUG ABUSE N RADIATION / CHEMOTHERAPY N COPD N Other # 2 N BLOOD DISEASES N EAR OR HEARING PROBLEMS N MUMPS N SHINGLES N DEPRESSION (INCLUDING POST ) N BOWEL PROBLEMS N STROKE/TIA N ULCERS N BENIGN PROSTATIC HYPERPLASIA N MEASLES N HYPOTENSION N MYOCARDIAL INFARCTION N OBESITY N GERD/NAUSEA N ANEURYSM N URINARY/BLADDER/KIDNEY PROBLEMS N CORONARY ARTERY DISEASE (CAD) N ADDICTION CONCERNS N Impotence N ENDOMETRIOSIS N USE OF BLOOD THINNERS Y SKIN PROBLEMS N GASTROINTESTINAL DISORDER N PERIPHERAL VASCULAR DISEASE N MUSCLE,JOINT OR BONE PROBLEMS N GASTROINTESTINAL BLEEDING N BLOOD CLOTS N ASTHMA N CATARACTS N USE OF NSAIDS Y ERECTILE DYSFUNCTION N VARICOSITIES N GI PROBLEMS N Low Testosterone N INFERTILITY N AIDS/HIV N CHEMOTHERAPY / RADIATION N LIVER DISEASE N MALE HYPOGONADISM N HYPERTENSION N Deficiency N TOURETTE'S N ANXIETY DISORDER Y BLOOD TRANSFUSION N ANEMIA/BLOOD DISORDER N CHRONIC EAR INFECTIONS N BRONCHITIS N TUBERCULOSIS N GLAUCOMA N FOOT PROBLEM N DIVERTICULITIS N SLEEP APNEA N CHICKENPOX N INFECTIOUS DISEASE N PROSTATE N HEART ARRHYTHMIA N INSOMNIA N HIGH CHOLESTEROL / HYPERLIPIDEMIA Y HYPERTHYROIDISM N EYE PROBLEMS N EDEMA N CHRONIC PAIN SYNDROME N HYPOTHYROIDISM N CONSTIPATION N CAROTID BLOCKAGE N BACK / NECK PROBLEMS N HAVE YOU BEEN HOSPITALIZED OR SEEN IN [facility] IN THE PAST YEAR ? N ATHEROSCLEROSIS N BREAST PROBLEMS N DIALYSIS N ECZEMA N OSTEOPOROSIS N ARTHRITIS N NO SIGNIFICANT PAST MEDICAL HISTORY N APPENDICITIS N DIABETES, TYPE N BAD TEETH N ENT N HEARTBURN / REFLUX N AUTISM SPECTRUM DISORDER (ASD) N HEPATITIS / LIVER DISEASE N GOUT N SLEEP DISORDER N ALZHEIMER'S DISEASE N Brain Problems N HERPES N DEMENTIA N SEIZURES/EPILEPSY N HEADACHES/MIGRAINES N VASCULAR DISEASE N PACEMAKER N Blood Disorder N DIZZINESS N KIDNEY DISEASE N HEART DISEASE/HEART PROBLEMS N MULTIPLE SCLEROSIS N CARDIAC ARRHYTHMIA N CANCER: SPECIFY N Gall Stones N ATRIAL FIBRILLATION N PULMONARY EMBOLISM N AUTOIMMUNE DISEASE N Immunizations Vaccine Type Date Status Note Provider Nam e and Address Organization Details Recorded Time influenza, unspecified formulation 3 completed PACHECO Sneed, [facility] 05/08/2023 09:48:34 influenza, unspecified formulation 4 completed AGAPITO Mosley, [facility] 02/13/2024 16:39:11 Pneumococcal conjugate PCV20, polysaccharide [id number] conjugate, adjuvant, PF 4 completed AGAPITO Mosley, [facility] 02/13/2024 16:42:00 zoster recombinant 4 completed AGAPITO Mosley, [facility] 02/13/2024 16:42:38 Influenza, split virus, trivalent, preservative 4 completed Not Available [facility] 06/08/2022 15:59:51 Influenza, split virus, trivalent, preservative 4 completed Not Available [facility] 06/08/2022 15:59:52 COVID-19 Non-US Vaccine, Product Unknown 1 completed Not Available [facility] 06/08/2022 15:59:52 Influenza, adjuvanted, trivalent, PF 2 completed Not Available [facility] 06/08/2022 15:59:52 Influenza, split virus, quadrivalent, preservative 1 completed Not Available [facility] 06/08/2022 15:59:52 Influenza, split virus, quadrivalent, preservative 9 completed Not Available [facility] 06/08/2022 15:59:52 Influenza, split virus, quadrivalent, PF 8 completed Not Available [facility] 06/08/2022 15:59:52 Influenza, split virus, quadrivalent, preservative 7 completed Not Available [facility] 06/08/2022 15:59:52 Influenza, split virus, quadrivalent, preservative 5 completed Not Available [facility] 06/08/2022 15:59:52 Influenza, split virus, quadrivalent, PF 6 completed Not Available [facility] 06/08/2022 15:59:52 Past Encounters Encounter ID Performer Location Encounter Start Date Encounter Closed Date Diagnosis/Indication Diagnosis SNOMED-CT Code Diagnosis ICD10 Code Diagnosis Note [id number] [facility] [place] [address] [place] [address] 07/13/2020 00:00:00 07/14/2020 09:29:55 [id number] [facility] [place] [address] [place] [address] 10/06/2020 00:00:00 10/06/2020 11:30:20 [id number] [facility] [place] [address] [place] [address] 04/06/2021 00:00:00 04/06/2021 15:19:51 [id number] [facility] [place] [address] [facility] [address] [place] [address] 07/13/2021 00:00:00 07/13/2021 16:15:12 [id number] [facility] [place] [address] [place] [address] 07/30/2021 00:00:00 07/30/2021 10:54:43 [id number] [facility] [place] [address] [place] [address] 08/17/2021 00:00:00 08/17/2021 13:29:42 [id number] [facility] [place] [address] [place] [address] 08/31/2021 00:00:00 08/31/2021 12:29:11 [id number] [facility] [place] [address] [place] [address] 11/16/2021 00:00:00 11/16/2021 12:50:44 [id number] [facility] [place] christy [address] [facility] [place] [address] 05/20/2022 00:00:00 05/20/2022 14:41:45 [id number] Roshan Mendez MD [facility] [place] 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 We will see him back in a few months for follow-up [id number] Roshan Mendez MD [facility] [place] 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 596981080 G56.21 [id number] Jewel Frances MD [facility] [place] [address] [place] [address] [place] [address] 10/18/2022 14:24:23 10/18/2022 15:16:40 Coronary arteriosclerosis 55394801 I25.10 Hypercholesterolemia 136 40867 E78.00 Gastroesop hageal reflux disease 695256851 K21.9 Anxiety 00921789 F41.9 Disorder of prostate 302 04205 N42.9 [id number] Jewel Frances MD [facility] [place] [address] [place] [address] 04/14/2023 11:36:01 04/14/2023 12:39:21 Coronary arteriosclerosis 40216476 I25.10 Hypercholesterolemia 136 25380 E78.00 Hyperglycemia 91281078 R 73.9 [id number] Jewel Frances MD [facility] [place] [address] [facility] [place] [address] 04/21/2023 11:06:23 04/21/2023 11:50:27 [id number] Jewel Frances MD [facility] Internal [facility] [place] [address] [facility] [place] [address] 11/09/2023 14:14:23 11/09/2023 15:01:04 Coronary arteriosclerosis 45071850 I25.10 Hypercholesterolemia 136 88964 E78.00 Gastroesop hageal reflux disease 283630337 K21.9 Anxiety 46335195 F41.9 Disorder of prostate 302 44155 N42.9 Health Concerns Section Related Observation LastModified by Organization Detai ls LastModified Time None Recorded Concern Status LastModified by Organization Details LastModified Time None Recorded Advance Directives Directive N: Payers Encounter Date Sequence Insurance Name Policy Number Policy Acosta Covered Member ID Acosta Member ID Guarantor Name 09/20/2022 1 [employer] [facility] [place] [employer] (MEDICARE - MEDICAID REPLACEMENT HMO) [id number] Vinay [place] [id number] Vinay [place] 10/18/2022 1 [employer] [place] [employer] [place]MEDICARE - MEDICAID REPLACEMENT HMO) [id number] Vinay Dilcia [id number] Vinay [place] 04/14/2023 1 [employer] [place] [employer] [place]MEDICARE - MEDICAID REPLACEMENT HMO) [id number] Vinay Dilcia [id number] Vinay [place] 04/21/2023 1 [employer] [facility] [place] [employer] (MEDICARE - MEDICAID REPLACEMENT HMO) [id number] Vinay Dilcia [id number] Vinay [place] 11/09/2023 1 [employer] [place] [place]MEDICARE - MEDICAID REPLACEMENT HMO) [id number] Vinay [place] [id number] Vinay Dilcia Notes Date Note Type Note Provider Name and Address Organization Details Recorded Time 3 text/html patient returns today for follow-up he had cubital tunnel carpal tunnel release doing well with regards to the numbing tingling and strength he spit out a couple of the Monocryl sutures in the palm but it has healed over nicely he also had a couple retained nylon sutures at the elbow but it has healed over nicely still has a little bit of pillar pain but he is only 2 months postop now comes in for follow-up Roshan Mendez MD [address] [place] [address], [facility] [address], [place], [address], [place] [facility] 09/20/2022 11:59:33 3 text/html Patient Name: Vinay Gomez Of Service: Monday ( 10.18.2022 ): 1960 Age: 62 There has been approximately a 12 lb weight loss since 05/20/2022. This represents approximately a 5.1% change in weight. Weight change attributable to lifestyle changes. Vital Signs:Blood Pressure: Sitting Rt. Arm 134/72Pulse: Sitting 77 /min and RegularRespirations: 12Height 72 in or 1.8 mWeight 223 lb or 101.2 kgBMI 30.2Temperature: 97 F or 36.1 CPulse Oximetry: 97 % at rest on no oxygen Chief Complaint: Addressed in HPI Problems or conditions discussed in the HPI were the only ones reviewed during the encounter.Only social and family history addressed in the HPI were reviewed during this encounter. Attendant(s): None Constitutional and Systemic Symptoms: none Medication Reconciliation: from medication list. History of Present Illness #1. Coronary Artery Disease: There has been no change in frequency - duration - intensity in frequency, duration or intensity of chest pain. Other Complaints: none The frequency of anginal attacks is none at all. Additional Symptoms: none Therapy reviewed regarding cardiovascular management includes Aspirin, Lipitor, Metoprolol Tartrate, Nitrostat and Zetia #2. Type II Hypercholesterolaemia: Currently taking medication and tolerating well. No interval complaints of any muscle pain or arthralgia. No significant liver changes with medications. Last lipid panel: fair control. Therapy reviewed regarding treatment of cholesterol management and include diet and Lipitor and Zetia. #3. Hx of esophageal reflux currently stable. Hx of Complications: none The severity, duration and intensity of symptoms have improved. Frequency: most meals Treatment consists medications taken on a regular basis. Current therapy includes Omeprazole. There has been no nausea, eructation, vomiting, hematemesis, dysphagia, velopharyngeal insufficiency and odynophagia. No change in he frequency or intensity of symptoms. Has had no melena. Has had no hematemesis. Discuss the possibility of trying to reduce the frequency of the use of any PPI inhibitors or H2 antagonist to see if symptoms can be controlled with last intensive therapy #4. Anxiety Disorder: History of anxiety disorder. There has been no panic attacks. No interval complaints of any vegetative or other signs of depression. Taking Wellbutrin Sr. Discussed possibility of decreasing and weaning off medication. Feels that current regimen is working fine and wishes not to change the current treatment regimen. Medication not causing any sedation or cognitive dysfunction and there is no contraindication to continue current therapy.Medication List Reviewed and Reconciled 10/18/2022Lipitor 40 MG (TABLET - ORAL) One Daily For CholesterolAspirin 325 MG TABLET One DailyMetoprolol Tartrate 50 MG TARTRATE (TABLET, EXTENDED RELEASE - ORAL) One DailyWellbutrin Sr 150 MG (TABLET, EXTENDED RELEASE - ORAL) One Twice DailyNitrostat 0.4 MG (TABLET - SUBLINGUAL) One Sl Prn Chest PainZetia 10 MG (TABLET - ORAL) One DailytMultivitamin DailyOmeprazole 20 MG CAPSULE, COATED PELLETS Once DailySingulair 10 MG (TABLET - ORAL) One DailyFluorouracil 5% (CREAM - TOPICAL) As DirectedVaccination and [id number] [id number] Covid PfizerSurgical HistoryBilateral Eye Surgery for Glaucoma, Left Cataract, Coronary Stent LADPreventative Testing Confirmed by Our Abbjskc1004/28/2021 ALBUMIN 4.3 G/DL04/28/2021 PSA 0.43 NG/ML11/25/2016 COLONOSCOPY (10 YEARS) 11/25/2026Social HistoryDoes not 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 HistoryMother 61 from complications of back surgeryFather 74 from CAD and PneumoniaOne brother living with laryngeal CA and CADTwo sisters living one DM and CAD(2) Jewel Frances MD [address], [place], [address], [place] [facility] 10/18/2022 15:15:35 4 text/html Patient Name: Vinay Gomez Of Service: Monday ( 04.14.2023 ): 1960 Age: 63 Vital Signs:Blood Pressure: Sitting Rt. Arm 126/80Pulse: Sitting 62 /min and RegularRespiratory Rate: 12Height 72 in or 1.8 mWeight 215 lb or 97.5 kgBMI 29.2Temperature: 97.8 F or 36.6 CPulse Oximetry: 98 % at rest on no oxygen Chief Complaint: Addressed in HPI Problems or conditions discussed in the HPI were the only ones reviewed during the encounter.Only social and family history addressed in the HPI were reviewed during this encounter. Attendant(s): WifeConstitutional and Systemic Symptoms:none Medication Reconciliation: from medication list. History of Present Illness #1. Coronary Artery Disease: There has been no change in frequency - duration - intensity in frequency, duration or intensity of chest pain. Other Complaints: none The frequency of anginal attacks is none at all. Additional Symptoms: none Therapy reviewed regarding cardiovascular management includes Aspirin, Lipitor, Metoprolol Tartrate, Nitrostat and Zetia #2. Type II Hypercholesterolaemia: Currently taking medication and tolerating well. No interval complaints of any muscle pain or arthralgia. No significant liver changes with medications. Last lipid panel: fair control. Therapy reviewed regarding treatment of cholesterol management and include diet. #3. Recent episode of COVID and RSV. While in the hospital had elevated blood sugars. They want to give insulin although foot I gather the blood sugar is 1 all that high. Will check a hemoglobin A1c to further assess for any associated diabetes particularly since there is a family history.:Medication List Reviewed and Reconciled 04/14/2023Lipitor 40 MG (TABLET - ORAL) One Daily For CholesterolAspirin 325 MG TABLET One DailyMetoprolol Tartrate 50 MG TARTRATE (TABLET, EXTENDED RELEASE - ORAL) One DailyWellbutrin Sr 150 MG (TABLET, EXTENDED RELEASE - ORAL) One Twice DailyNitrostat 0.4 MG (TABLET - SUBLINGUAL) One Sl Prn Chest PainZetia 10 MG (TABLET - ORAL) One DailytMultivitamin DailyOmeprazole 20 MG CAPSULE, COATED PELLETS Once DailySingulair 10 MG (TABLET - ORAL) One DailyFluorouracil 5% (CREAM - TOPICAL) As DirectedVaccination and [id number] [id number] Covid PfizerSurgical HistoryBilateral Eye Surgery for Glaucoma, Left Cataract, Coronary Stent LADPreventative Testing Confirmed by Our Wsbmhat2710/21/2022 PSA04/28/2021 ALBUMIN 4.3 G/DL N011/25/2016 COLONOSCOPY (10 YEARS) 11/25/2026Social HistoryDoes not 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 HistoryMother 61 from complications of back surgeryFather 74 from CAD and PneumoniaOne brother living with laryngeal CA and CADTwo sisters living one DM and CAD(2) Jewel Frances MD [address] [place] [address], [place], [address], [facility] 04/14/2023 12:43:19 4 text/html Patient Name: Vinay Gomez Of Service: November ( 11.09.2023 ): 1960 Age: 63 There has been approximately a 6 lb weight loss since 04/14/2023. This represents approximately a 2.8% change in weight. Weight change attributable to lifestyle changes. Vital Signs:Blood Pressure: Sitting Rt. Arm 110/70Pulse: Sitting 57 /min and RegularRespiratory Rate: 14Height 72 in or 1.8 mWeight 209 lb or 94.8 kgBMI 28.3Temperature: 97.8 F or 36.6 CPulse Oximetry: 98 % at rest on no oxygen Chief Complaint: Addressed in HPI Problems or conditions discussed in the HPI were the only ones reviewed during the encounter.Only social and family history addressed in the HPI were reviewed during this encounter. Attendant(s): WifeConstitutional and Systemic Symptoms:none Medication Reconciliation: from medication list. [id number]: Echocardiogram estimated ejection fraction 60%. There is mild enlargement of left atrium with left atrial volume index 33.0. Mild mitral valve regurgitation noted no other valvular abnormalities noted05/04/2023: Venous Doppler no evidence any venous insufficiency of the right lower extremity. There is significant venous insufficiency of the left great saphenous vein. There is a mass noted in the left groin may represent a possible lymph node. The further identification. 05-24-2023: pharmacological stress test normal sinus rhythm during a Richard protocol. No ischemic ST or T-wave changes noted. The left ventricular is normal size. There is no evidence of stress-induced left ventricular dilatation. Pulmonary and right ventricular activity is unremarkable. Stress images reveal a small area of moderately decreased perfusion of the inferior wall reversible and rest image consistent with ischemia. Perfusion in the other myocardial segments is normal. The left ventricular ejection fraction calculated at 60% History of Present Illness #1. Coronary Artery Disease: There has been no change in frequency - duration - intensity in frequency, duration or intensity of chest pain. Other Complaints: none The frequency of anginal attacks is none at all. Additional Symptoms: none Therapy reviewed regarding cardiovascular management includes Aspirin, Lipitor, Metoprolol Tartrate, Nitrostat and Zetia #2. Type II Hypercholesterolaemia: Currently taking medication and tolerating well. No interval complaints of any muscle pain or arthralgia. No significant liver changes with medications. Last lipid panel: fair control. Therapy reviewed regarding treatment of cholesterol management and include diet and Lipitor. #3. Hx of esophageal reflux currently stable. Hx of Complications: none The severity, duration and intensity of symptoms have improved. Frequency: most meals Treatment consists medications taken on intermittent basis. Current therapy includes Omeprazole. There has been no nausea, eructation, vomiting, hematemesis, dysphagia, velopharyngeal insufficiency and odynophagia. No change in he frequency or intensity of symptoms. Has had no melena. Has had no . Discussed use of H2 antagonists and the possibility of trying to reduce the frequency of the use of any PPI inhibitors and try H2 antagonists to see if symptoms can be controlled with lease intensive therapy since a number of complications are associated with chronic prolonged use of PPI inhibitors.#4. Anxiety clinically stable. Currently taking Wellbutrin 150 mg daily and doing well. No interval complaints of any depressive type symptoms and or vegetative signs of depression. No symptoms of any suicidal ideation or thoughts. Active Medication ListLipitor 40 MG (TABLET - ORAL) One Daily For CholesterolAspirin 325 MG TABLET One DailyMetoprolol Tartrate 50 MG TARTRATE (TABLET, EXTENDED RELEASE - ORAL) One DailyWellbutrin Sr 150 MG (TABLET, EXTENDED RELEASE - ORAL) One Twice DailyNitrostat 0.4 MG (TABLET - SUBLINGUAL) One Sl Prn Chest PainZetia 10 MG (TABLET - ORAL) One DailytMultivitamin DailyOmeprazole 20 MG CAPSULE, COATED PELLETS Once DailySingulair 10 MG (TABLET - ORAL) One DailyFluorouracil 5% (CREAM - TOPICAL) As Directed Vaccination and [id number] Iyeqpeoyd9589-77 Covid Edufii Surgical Gohaqgz6146-27 Bilateral Eye Surgery for Ubmhoywr1663-87 Left Mxzbvrmg8932-49 Coronary Stent LAD Preventative Nilyjrb7910/21/2022 PSA04/28/2021 ALBUMIN 4.3 G/DL N011/25/2016 COLONOSCOPY (10 YEARS) 11/25/2026 Social HistoryDoes not 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 [employer] 11/09/2023 14:57:30
--- OUTSIDE RECORDS SUMMARY | 2024-05-30 13:17 | XMS_ITS | Continuity of Care Document ---
Author Organization [facility] Address [address] [place] [address] Phone Care Team Providers Care Sheetfed Press Operator Name Role Phone Chidi Harper MD Unavailable Unavailable Procedures Procedure Date Office/outpatient Visit, Est Office/outpatient Visit, Est Visual Field Examination(s) Eye Exam, New Patient Corneal Pachymetry Advance Directives Directive Yes / No Effective Date File Name No Information Encounters Encounter Description Practice Location Reason(s) For Visit Diagnoses Date Provider Providers Copied on Encounter Office/outpat ient Visit, Est [facility], [id number] [place] [address] [address], [place], [place], [address], [place] tel:[phone] SEC [facility] No Information [address] [place], [place], [address], [place]. tel:[phone] Office/outpat ient Visit, Est [facility], [address] [place] [address] [address], [place], [place], [address], [place] tel:[phone] [facility] No Information [address] [facility] [address], [place], [place], [address], [place]. tel:[phone] [facility], [address], [place], [place], [address], [place] tel:[phone] [facility] No Information [address] [place], [place], [address], . tel:[phone] Referring Provider: Chidi Felipe, [address] [place], [address] . tel:[phone] [facility], [address], [place], [place], [address], tel:[phone] [facility] No Information [address] [facility] [place], [address], . tel:[phone] Referring Provider: Chidi Felipe, [address] [place], [address] . tel:[phone] Family History Family Member Type Diagnosis Age At Onset No Information Payers Payer name Insurance type Covered alliance party ID Authoreloya melonie(s) [place] [id number] Social History Type Description Quantity Date Captured [...]
--- OUTSIDE RECORDS SUMMARY | 2024-05-30 13:17 | XMS_ITS | Clinical Summary ---
Author Organization [facility] Address [address] [place] [address] Care Team Providers Care Clubhouse Attendant Name Role Phone Jewel Frances MD Primary Care Provider [phone] Source Comments [facility],non-owned Affiliates and Associated Physician Practices is amultiple site organization consisting of ambulatory clinics and hospital sitesin [place], [place], [place] and [place]. This disclosure is being madepursuant to the Care Everywhere program and may not contain all information available regarding this patient. Last updated 17.[facility] Allergies No known active allergies Medications * Be aware that medications may not be up to date on this document. Alwaysverify current medications with the patient. Medication Sig Dispensed Refills Start Date End Date Status traMADol (ULTRAM) 50 MG tablet Take 1 tablet by mouth every 6 hours as needed for Pain 20 tablet 05/06/2018 Active Social History Tobacco Use Types Packs/Day Years [...] Comments Blood Pressure 147/99 05/06/2018 12:53 PM FIRE PROTECTION SPECIALIST Pulse 88 05/06/2018 12:53 PM FIRE PROTECTION SPECIALIST Temperature 36.9 C (98.4 F) 05/06/2018 12:53 PM FIRE PROTECTION SPECIALIST Respiratory Rate 16 05/06/2018 12:53 PM FIRE PROTECTION SPECIALIST Oxygen Saturation 100% 05/06/2018 12:53 PM FIRE PROTECTION SPECIALIST Inhaled Oxygen Concentration - - Weight 102.1 kg (225 lb) 05/06/2018 12:53 PM FIRE PROTECTION SPECIALIST Height 182.9 cm (6') 05/06/2018 12:53 PM FIRE PROTECTION SPECIALIST Body Mass Index 30.52 05/06/2018 12:53 PM FIRE PROTECTION SPECIALIST Plan of Treatment Health Maintenance Due Date Last Done Comments COLOGUARD (AGES 45-75) - COL ON CA SCREENING 1960 COLON MONITORING 1960 COLONOSCOPY - COLON CA SCREENING 1960 CT COLONOGRAPHY - COLON CA SCREENING 1960 Colorectal Cancer Screening 1960 FIT - COLON CA SCREENING 1960 FLEX SIG - COLON CA SCREENING 1960 LIPID TESTING 1960 HIV SCREENING 02/28/1976 HEPATITIS C SCREENING 02/23/1979 DTAP/TDAP/TD VACCINES (1 - Tdap) 02/28/1980 PNEUMOCOCCAL VACCINE 50+ (1 of 1 - PCV) 2011 ZOSTER VACCINE (1 of 2) 2011 COVID-19 VACCINE (1 - 2023-2 5 season) 2023 INFLUENZA VACCINE (#1) 2023 DEPRESSION SCREENING 04/10/2024 Respiratory Syncytial Virus (RSV) Vaccine Pt: or over 60 yrs (1 - 1-dose 75+ series) 02/28/2036 HEPATITIS B VACCINE Aged Out No longe r eligible based on patient's age to complete this topic HIB VACCINE Aged Out No longer eligi ble based on patient's age to complete this topic HPV VACCINE Aged Out No longer eligi ble based on patient's age to complete this topic MENINGOCOCCAL (Group B) VACCINE Aged Out No longer eligible based on patient's age to complete this topic MENINGOCOCCAL VACCINE Aged Out No silvia viki eligible based on patient's age to complete this topic PNEUMOCOCCAL VACCINE Aged Out No long er eligible based on patient's age to complete this topic Care Teams Clubhouse Attendant Relationship Specialty Start Date End Date Jewel Frances MD [address] [place] [address] [address] [place] [address] PCP - General Internal Medicine 05/06/18
--- OUTSIDE RECORDS SUMMARY | 2024-05-30 13:17 | XMS_ITS | Referral Summary ---
Author Organization [facility] Address [address] [place] [address] Care Team Providers Care School Photographs Detailer Name Role Phone Jewel Frances MD Primary Care Provider [phone] Source Comments [facility] [employer],non-owned Affiliates and Associated Physician Practices is amultiple site organization consisting of ambulatory clinics and hospital sitesin [place], [place], [place] and [place]. This disclosure is being madepursuant to the Care Everywhere program and may not contain all information available regarding this patient. Last updated 17.[facility] [employer] Allergies No known active allergies Medications * [...] Comments Blood Pressure 147/99 05/06/2018 12:53 PM COMMERCIAL PROPERTY ADMINISTRATOR Pulse 88 05/06/2018 12:53 PM COMMERCIAL PROPERTY ADMINISTRATOR Temperature 36.9 C (98.4 F) 05/06/2018 12:53 PM COMMERCIAL PROPERTY ADMINISTRATOR Respiratory Rate 16 05/06/2018 12:53 PM COMMERCIAL PROPERTY ADMINISTRATOR Oxygen Saturation 100% 05/06/2018 12:53 PM COMMERCIAL PROPERTY ADMINISTRATOR Inhaled Oxygen Concentration - - Weight 102.1 kg (225 lb) 05/06/2018 12:53 PM COMMERCIAL PROPERTY ADMINISTRATOR Height 182.9 cm (6') 05/06/2018 12:53 PM COMMERCIAL PROPERTY ADMINISTRATOR Body Mass Index 30.52 05/06/2018 12:53 PM COMMERCIAL PROPERTY ADMINISTRATOR Plan of Treatment Not on file Care Teams School Photographs Detailer Relationship Specialty Start Date End Date Jewel Frances MD [address] [place] [address] [address] [place] [address] PCP - General Internal Medicine 05/06/18
[2024-05-30 13:18] LABS: Basophils Absolute Auto 0.04 K/mm3 (0.00-0.10); Basophils Percent Auto 0.7 % (0.0-1.0); Eosinophils Absolute Auto 0.24 K/mm3 (0.02-0.50); Eosinophils Percent Auto 3.9 % (1.0-6.0); Hematocrit 42.8 % (40.0-54.0); Hemoglobin 13.9 g/dL (14.0-18.0); Immature Granulocyte Absolute 0.01 K/mm3 (0.00-0.00); Immature Granulocyte Percent A 0.2 % (0.0-0.0); Lymphocytes Absolute Auto 1.52 K/mm3 (1.10-4.50); Lymphocytes Percent Auto 24.7 % (18.0-42.0); Mean Corpuscular HGB Conc 32.5 g/dL (32-36); Mean Corpuscular Hemoglobin 27.8 pg (27.0-31.0); Mean Corpuscular Volume 85.6 fL (78.0-102.0); Mean Platelet Volume 9.5 fl (8.7-11.0); Monocytes Absolute Auto 0.66 K/mm3 (0.10-0.90); Monocytes Percent Auto 10.7 % (2.0-11.0); Neutrophils Absolute Auto 3.68 K/mm3 (1.70-7.20); Neutrophils Percent Auto 59.8 % (50.0-70.0); Platelet Count Result 248 K/mm3 (150-420); Red Cell Distribution Width 13.3 % (11.6-14.4); White Blood Count 6.2 K/mm3 (4.8-10.8)
[2024-05-30 13:44] LABS: Alanine Aminotransferase 29 U/L (16-63); Albumin Level 3.9 g/dL (3.4-5.0); Alkaline Phosphatase 71 U/L (46-116); Anion Gap 7 mmol/L (4-12); Aspartate Amino Transferase 16 U/L (15-37); Bilirubin,Total 0.5 mg/dL (0.00-1.00); Blood Urea Nitrogen 18 mg/dL (7-18); Calcium 9.4 mg/dL (8.5-10.1); Carbon Dioxide 29 mmol/L (21-32); Chloride 106 mmol/L (98-108); Estimated Glomerular Filt Rate > 60; Glucose 118 mg/dL (70-99); Osmolality Calculated 296 mOsm/kg (285-295); Potassium 4.5 mmol/L (3.5-5.1); Sodium 142 mmol/L (136-145); Total Protein 7.1 g/dL (6.4-8.2)
== END 2024-05-30 12:54 | disposition home or self-care (01) ==
LOC: CHSLAB 13:01
PROVIDERS: PCP Internal Medicine; Visit Provider Internal Medicine
DX: I25.10 Atherosclerotic heart disease of native coronary artery without angina pectoris (principal)
CPT/HCPCS: 36415; 71046; 80053; 85025

== ENCOUNTER 2024-06-05 07:41 | Outpatient (CLI) | payer OTHER, SELFPAY ==
--- OUTSIDE RECORDS SUMMARY | 2024-06-05 07:45 | XMS_ITS | Patient Health Summary ---
Author Organization [facility] Address [address] [place] [address] Care Team Providers Care Inspector And Hand Packager Name Role Phone Jewel Frances MD Primary Care Provider [phone] Note from [facility],non-owned Affiliates and Associated Physician Practices is amultiple site organization consisting of ambulatory clinics and hospital sitesin [place], [place], [place] and [place]. This disclosure is being madepursuant to the Care Everywhere program and may not contain all information available regarding this patient. Last updated 17.[facility] [employer] Allergies No known active allergies Medications * [...] Comments Blood Pressure 147/99 05/06/2018 12:53 PM SHOES SALESPERSON Pulse 88 05/06/2018 12:53 PM SHOES SALESPERSON Temperature 36.9 C (98.4 F) 05/06/2018 12:53 PM SHOES SALESPERSON Respiratory Rate 16 05/06/2018 12:53 PM SHOES SALESPERSON Oxygen Saturation 100% 05/06/2018 12:53 PM SHOES SALESPERSON Inhaled Oxygen Concentration - - Weight 102.1 kg (225 lb) 05/06/2018 12:53 PM SHOES SALESPERSON Height 182.9 cm (6') 05/06/2018 12:53 PM SHOES SALESPERSON Body Mass Index 30.52 05/06/2018 12:53 PM SHOES SALESPERSON Procedures * BASIC METABOLIC PANEL (CALCIUM TOTAL)(Performed 05/06/2018) * CBC W AUTO DIFFERENTIAL(Performed 05/06/2018) Results * (ABNORMAL) CBC W AUTO DIFFERENTIAL (05/06/2018 2:26 PM SHOES SALESPERSON) WBC 11.7(H) 3.5 - 10.5 10 3/uL 05/06/2018 2:41 PM [facility] RBC 5.36 4.30 - 5.70 10 6/uL 05/06/2018 2:41 PM [facility] Hemoglobin 15.1 13.5 - 17.5 g/dL 05/06/2018 2:41 PM [facility] Hematocrit 46.4 39.0 - 50.0 % 05/06/2018 2:41 PM [facility] MCV 86.6 81.0 - 97.0 fL 05/06/2018 2:41 PM [facility] MCH 28.2 28.0 - 34.0 pg 05/06/2018 2:41 PM [facility] MCHC 32.5 32.0 - 36.0 g/dL 05/06/2018 2:41 PM [facility] Platelet Count 325 150 - 400 10 3/uL 05/06/2018 2:41 PM [facility] RDW-SD 41.1 36.0 - 50.0 fL 05/06/2018 2:41 PM [facility] RDW-CV 12.9 11.2 - 14.8 % 05/06/2018 2:41 PM [facility] MPV 9.7 9.3 - 12.8 fL 05/06/2018 2:41 PM [facility] nRBC Absolute 0.00 0 10 3/uL 05/06/2018 2:41 PM [facility] nRBC Auto 0.0 0 /100 WBC 05/06/2018 2:41 PM [facility] Neutrophils % 71.6(H) 35.0 - 70.0 % 05/06/2018 2:41 PM [facility] Lymphocytes % 18.3(L) 19.7 - 55.1 % 05/06/2018 2:41 PM [facility] Monocytes % 7.4 3.0 - 15.0 % 05/06/2018 2:41 PM [facility] Eosinophils % 2.1 0.0 - 6.0 % 05/06/2018 2:41 PM [facility] Basophil % 0.3 0.0 - 1.5 % 05/06/2018 2:41 PM [facility] Neutrophils Absolute 8.4(H) 1.6 - 7.0 10 3/uL 05/06/2018 2:41 PM [facility] Lymphocyte Absolute 2.1 0.8 - 2.9 10 3/uL 05/06/2018 2:41 PM [facility] Monocytes Absolute 0.86(H) 0.14 - 0.66 10 3/uL 05/06/2018 2:41 PM [facility] Eosinophils Absolute 0.24 0.00 - 0.45 10 3/uL 05/06/2018 2:41 PM [facility] Basophils Absolute 0.04 0.00 - 0.06 10 3/uL 05/06/2018 2:41 PM [facility] Immature Granulocytes % 0.3 0.0 - 1.0 % 05/06/2018 2:41 PM [facility] Blood BLOOD SPECIMEN / Unknown Venipuncture / Unknown 05/06/2018 2:26 PM SHOES SALESPERSON 05/06/2018 2:37 PM SHOES SALESPERSON Patricia De La Cruz MD LAB - HEMATOLOGY ORD ERABLES Performing Organization Address City/State/[facility] Co de Phone Number [address] [phone] * (ABNORMAL) BASIC METABOLIC PANEL (CALCIUM TOTAL) (05/06/2018 2:26 PM SHOES SALESPERSON) BUN 15 7 - 26 mg/dL 05/06/2018 2:59 PM [facility] Creatinine 1.1 0.6 - 1.2 mg/dL 05/06/2018 2:59 PM [facility] Sodium 141 136 - 145 mmol/L 05/06/2018 2:59 PM [facility] Potassium 4.3 3.5 - 4.5 mmol/L 05/06/2018 2:59 PM [facility] Chloride 105 98 - 107 mmol/L 05/06/2018 2:59 PM [facility] CO2 23 22 - 29 mmol/L 05/06/2018 2:59 PM [facility] Glucose 92 70 - 115 mg/dL 05/06/2018 2:59 PM [facility] Calcium 10.6(H) 8.4 - 10.2 mg/dL 05/06/2018 2:59 PM [facility] Anion Gap 17 8 - 18 05/06/2018 2:59 PM [facility] BUN/Creatinine Ratio 14 7 - 23 05/06/2018 2:59 PM [facility] Osmolality Calculated 292 270 - 300 mOsm/kg 05/06/2018 2:59 PM [facility] eGFR >60 >60 mL/min/1.7 3 m2 05/06/2018 2:59 PM [facility] Blood BLOOD SPECIMEN / Unknown Venipuncture / Unknown 05/06/2018 2:26 PM SHOES SALESPERSON 05/06/2018 2:36 PM SHOES SALESPERSON Patricia De La Cruz MD LAB - CHEMISTRY [facility] Organization Address City/State/ZIP Co de Phone Number [facility] [address] [phone] Care Teams Inspector And Hand Packager Relationship Specialty Start Date End Date Jewel Frances MD [facility] [address] [address] [place] [address] PCP - General Internal Medicine 05/06/18
--- OUTSIDE RECORDS SUMMARY | 2024-06-05 07:45 | XMS_ITS | Clinical Summary ---
Author Organization [facility] Address [address] [place] [address] Phone Care Team Providers Care Credit Office Manager Name Role Phone Jewel Frances MD Primary Care Provider [phone] Allergies No known active allergies Medications atorvastatin [...] on file Legal Sex Male 2:52 PM ATHLETIC EQUIPMENT MANAGER Gender Identity Not on file Sexual Orientation [...] this topic Insurance MEDICAID [place] Care Teams Credit Office Manager Relationship Specialty Start Date End Date Jewel Frances MD [address] [address] PCP - General Internal Medicine 06/06/19
--- OUTSIDE RECORDS SUMMARY | 2024-06-05 07:45 | XMS_ITS | Clinical Summary ---
Author Organization [facility] Address [address] [place] [address] Care Team Providers Care Head Soft Sugar Operator Name Role Phone Jewel Frances MD Primary Care Provider [phone] Source Comments [facility] [employer],non-owned Affiliates and Associated Physician Practices is amultiple site organization consisting of ambulatory clinics and hospital sitesin [place], [place], [place] and [place]. This disclosure is being madepursuant to the Care Everywhere program and may not contain all information available regarding this patient. Last updated 17.[facility] [employer] Allergies No known active allergies Medications * [...] Comments Blood Pressure 147/99 05/06/2018 12:53 PM SOYFREEZE OPERATOR Pulse 88 05/06/2018 12:53 PM SOYFREEZE OPERATOR Temperature 36.9 C (98.4 F) 05/06/2018 12:53 PM SOYFREEZE OPERATOR Respiratory Rate 16 05/06/2018 12:53 PM SOYFREEZE OPERATOR Oxygen Saturation 100% 05/06/2018 12:53 PM SOYFREEZE OPERATOR Inhaled Oxygen Concentration - - Weight 102.1 kg (225 lb) 05/06/2018 12:53 PM SOYFREEZE OPERATOR Height 182.9 cm (6') 05/06/2018 12:53 PM SOYFREEZE OPERATOR Body Mass Index 30.52 05/06/2018 12:53 PM SOYFREEZE OPERATOR Plan of Treatment Health Maintenance Due Date [...] age to complete this topic Care Teams Head Soft Sugar Operator Relationship Specialty Start Date End Date Jewel Frances MD [address] [place] [address] [address] [place] [address] PCP - General Internal Medicine 05/06/18
--- OUTSIDE RECORDS SUMMARY | 2024-06-05 07:45 | XMS_ITS | Data Portability ---
Author Organization [place] [facility], Main Office Address [address] [place] [address] Assessment No assessment recorded. Plan of Treatment Reminders Order Date Submit Date Provider Last Modified By Organization Details Last Modified Time Details Appointments None recorded. Lab magnesium , serum or plasma [address] (Lab), [address] [place] [address], [address], 5 11:38:56 vitamin B12, serum [address] (Lab), [address] [place] [address], [address], 5 11:38:57 lipid panel, serum [address] (Lab), [address] [place] [address], [address], 5 11:38:56 CMP, serum or plasma [address] (Lab), [address] [place] [address], [address], 5 11:38:56 PSA, serum or plasma [address] (Lab), [address] [place] [address], [address], 4 14:18:50 magnesium , serum or plasma [address] (Lab), [address] [place] [address], [address], 4 14:18:50 vitamin B12, serum [address] (Lab), [address] [place] [address] [address], [place], [address], 4 14:18:50 lipid panel, serum [address] (Lab), [address] [place] [address] [address], [place], [address], 4 14:18:49 CMP, serum or plasma [address] (Lab), [address] [place] [address] [address], [place], [address], 4 12:28:09 CBC w/ auto diff [address] (Lab), [address] [place] [address] [address], [place], [address], 4 14:18:49 TSH, serum or plasma [address] (Lab), [address] [place] [address] [address], [place], [address], 4 14:18:50 T4, free, serum [address] (Lab), [address] [place] [address] [address], [place], [address], 4 12:28:10 HbA1c (hemoglob in A1c), blood [address] (Lab), [address] [place] [address] [address], [place], [address], 4 16:34:06 lipid panel, serum 024 [facility] (Lab), [address] [place] [address] [address], [place], [address], 4 13:26:12 CMP, serum or plasma 024 [facility] (Lab), [address] [place] [address] [address], [place], [address], 4 13:26:17 TSH, serum or plasma 024 024 [facility] (Lab), [address] [place] [address] [address], [place], [address], 4 13:29:52 T4, free, serum 024 024 [facility] (Lab), [address] [place] [address] [address], [place], [address], 4 13:29:04 CBC w/ auto diff 024 024 [facility] (Lab), [address] [place] [address] [address], [place], [address], 4 12:42:08 PSA, serum or plasma [address] (Lab), [address] [place] [address] [address], [place], [address], 3 14:07:23 lipid panel, serum 023 023 [facility] (Lab), [address] [place] [address] [address], [place], [address], 3 12:41:42 CMP, serum or plasma 023 023 [facility] (Lab), [address] [place] [address] [address], [place], [address], 3 12:41:42 TSH, serum or plasma 023 023 [facility] (Lab), [address] [place] [address] [address], [place], [address], 3 12:41:42 T4, free, serum [address] (Lab), [address] [place] [address] [address], [place], [address], 3 14:07:23 CBC w/ auto diff 023 023 [email or web address] [facility] ([facility]), [address] [place] [address] [address], [place], [address], 3 14:07:23 Referral None recorded. Procedures None recorded. Surgeries None recorded. Imaging None recorded. Medication Orders None recorded. Patient TargetsNo targets recorded. Patient Instructions Encounter Date Encounter Id Patient Instructions Last Modified By Organization Details Last Modified Time 10/18/2022 [id number] Coronary artery disease stable-hyperlipide brenton -GERD -anxiety disorder. Check blood work consisting of CBC, CMP, lipid, thyroid, magnesium, B12 and PSA. Follow-up in six months Not available 10/18/2022 15:13:32 04/14/2023 [id number] CAD -hyperlipidemia -hyperglycemia. Will check blood work [...] recognize, using context, where substitutions have occurred. [email or web address] Not available 04/14/2023 12:36:27 11/09/2023 [id number] Follow-up edwards ry artery disease, hyperlipidemia, GERD [...] recognize, using context, where substitutions have occurred. [email or web address] Not available 11/09/2023 14:57:06 06/04/2024 [id number] Follow-up edwards ry artery disease, hyperlipidemia, anxiety disorder and GERD all clinically stable. Will continue on current Rx check a B12, magnesium level, lipid and CMP. Continue on current Rx and follow-up in six months Follow Up: 6 Months Approximate Date: 12/01/2024 Portions of record are template driven. When necessary additional context will be provided. Additionally some portions have been created with voice recognition software. Occasional wrong-word or s ound-a-like substitutions may have occurred due to the inherent limitations of voice recognition software. Read the chart carefully and recognize, using context, where substitutions may have occurred. Created: Jewel Frances M.D. 06.04.2024 10:34 AM [email or web address] Not available 06/04/2024 11:34:50 Reason for Referral None Reported. Results Created Date Observation Date Name Description Value Unit Range Abnormal Flag Note LastModifiedBy Organization Detail LastModifiedTime 04/18/19 24 04/18/2023 CBC/C OMPLE TE BLD COUNT W/DIF F white blood cells 6.2 x10'3 /uL 4.2-10 .8 Not Available [facility] (Lab) [address] [place], [address], 04/18/2023 12:42:08 04/18/19 24 04/18/2023 CBC/C OMPLE TE BLD COUNT W/DIF F red blood cells 4.94 x10'6 /uL 4.10-5 .80 Not Available [facility] (Lab) [address] [place], [address], 04/18/2023 12:42:08 04/18/19 24 04/18/2023 CBC/C OMPLE TE BLD COUNT W/DIF F hemoglobin 14.2 g/dL 13.2-1 7.0 Not Available [facility] (Lab) [address] [place], [address], 04/18/2023 12:42:08 04/18/1904/18/2023 CBC/C OMPLE TE BLD COUNT W/DIF F hematocrit 44.5 % 39.3-5 0.0 Not Available [facility] (Lab) [address] [place], [address], 04/18/2023 12:42:08 04/18/19 24 04/18/2023 CBC/C OMPLE TE BLD COUNT W/DIF F mean red cell volume 90.1 fL 80.0-9 7.0 Not Available [facility] (Lab) [address] [place], [address], 04/18/2023 12:42:08 04/18/19 24 04/18/2023 CBC/C OMPLE TE BLD COUNT W/DIF F mean red cell hemoglobin 28.7 pg 27.0-3 3.0 Not Available [facility] (Lab) [address] [place], [address], 04/18/2023 12:42:08 04/18/19 24 04/18/2023 CBC/C OMPLE TE BLD COUNT W/DIF F mean RBC HGB concentratio n 31.9 g/dL 31.0-3 6.0 Not Available [facility] (Lab) [address] [place], [address], 04/18/2023 12:42:08 04/18/19 24 04/18/2023 CBC/C OMPLE TE BLD COUNT W/DIF F red cell distribution width 14.4 % 11.8-1 5.5 Not Available [facility] (Lab) [address] [place], [address], 04/18/2023 12:42:08 04/18/19 24 04/18/2023 CBC/C OMPLE TE BLD COUNT W/DIF F platelets 216 x10'3 /uL 150-40 0 Not Available [facility] (Lab) [address] [place], [address], 04/18/2023 12:42:08 04/18/19 24 04/18/2023 CBC/C OMPLE TE BLD COUNT W/DIF F mean platelet volume 10.4 fL 9.0-12 .4 Not Available [facility] (Lab) [address] [place], [address], 04/18/2023 12:42:08 04/18/19 24 04/18/2023 CBC/C OMPLE TE BLD COUNT W/DIF F neutrophils 59.0 % 39.0-7 2.0 Not Available [facility] (Lab) [address] [place], [address], 04/18/2023 12:42:08 04/18/19 24 04/18/2023 CBC/C OMPLE TE BLD COUNT W/DIF F lymphocytes 27.3 % 16.0-4 7.0 Not Available [facility] (Lab) [address] [place], [address], 04/18/2023 12:42:08 04/18/19 24 04/18/2023 CBC/C OMPLE TE BLD COUNT W/DIF F monocytes 10.1 % 5.0-12 .0 Not Available [facility] (Lab) [address] [place], [address], 04/18/2023 12:42:08 04/18/19 24 04/18/2023 CBC/C OMPLE TE BLD COUNT W/DIF F eosinophils 2.6 % 1.0-7. 0 Not Available [facility] (Lab) [address] [place], [address], 04/18/2023 12:42:08 04/18/19 24 04/18/2023 CBC/C OMPLE TE BLD COUNT W/DIF F basophils 0.5 % 0.0-2. 0 Not Available [facility] (Lab) [address] [place], [address], 04/18/2023 12:42:08 04/18/1904/18/2023 CBC/C OMPLE TE BLD COUNT W/DIF F immature granulocytes 0.5 % 0.00-0 .50 Not Available [facility] (Lab) [address] [place], [address], 04/18/2023 12:42:08 04/18/19 24 04/18/2023 CBC/C OMPLE TE BLD COUNT W/DIF F neutrophils, absolute count 3.67 x10'3 /uL 1.5-8. 0 Not Available [facility] (Lab) [address] [place], [address], 04/18/2023 12:42:08 04/18/19 24 04/18/2023 CBC/C OMPLE TE BLD COUNT W/DIF F lymphocytes, absolute count 1.70 x10'3 /uL 1.07-3 .43 Not Available [facility] (Lab) [address] [place], [address], 04/18/2023 12:42:08 04/18/19 24 04/18/2023 CBC/C OMPLE TE BLD COUNT W/DIF F monocytes, absolute count 0.63 x10'3 /uL 0.29-0 .99 Not Available [facility] (Lab) [address] [place], [address], 04/18/2023 12:42:08 04/18/19 24 04/18/2023 CBC/C OMPLE TE BLD COUNT W/DIF F eosinophils, absolute count 0.16 x10'3 /uL 0.02-0 .53 Not Available [facility] (Lab) [address] [place], [address], 04/18/2023 12:42:08 04/18/19 24 04/18/2023 CBC/C OMPLE TE BLD COUNT W/DIF F basophils, absolute count 0.03 x10'3 /uL 0.01-0 .08 Not Available [facility] (Lab) [address] [place], [address], 04/18/2023 12:42:08 04/18/19 24 04/18/2023 CBC/C OMPLE TE BLD COUNT W/DIF F immature granulocytes ,absolute 0.03 x10'3 /uL 0.00-0 .05 Not Available [facility] (Lab) [address] [place], [address], 04/18/2023 12:42:08 04/18/19 24 04/18/2023 CBC/C OMPLE TE BLD COUNT W/DIF F nucleated red blood cells 0.0 % -0 Not Available [facility] (Lab) [address] [place], [address], 04/18/2023 12:42:08 04/18/19 24 04/18/2023 CBC/C OMPLE TE BLD COUNT W/DIF F NRBC# 0.00 x10'3 /uL Not Available [facility] (Lab) [address] [place], [address], 04/18/2023 12:42:08 04/18/19 24 04/18/2023 LIPID PANEL cholesterol 149 mg/dL 140-19 9 NIH BRIANA NSUS RECOM MENDA TION FOR WILDER STERO L: ADULT CHILD LOW RISK: <200 <170 BORDE RLINE : <200- 239 ----- HIGH RISK: >240 >200 Not Available [facility] (Lab) [address] [place], [address], 04/18/2023 13:26:12 04/18/19 24 04/18/2023 LIPID PANEL triglyceride s 72 mg/dL 0-150 NIH BRIANA NSUS REPOR T RECOM MENDA TION FOR TRIGL YCERI CLARICE: ADULT CHILD LOW RISK: <150 ----- BODER LINE: 150-1 99 ----- HIGH RISK: >200 ----- Not Available [facility] (Lab) [address] [place], [address], 04/18/2023 13:26:12 04/18/19 24 04/18/2023 LIPID PANEL HDL cholesterol 48 mg/dL 40- Not Available [facility] (Lab) [address] [place], [address], 04/18/2023 13:26:12 04/18/19 24 04/18/2023 LIPID PANEL [...] WILL NOT BE REPOR RIA. Not Available [facility] (Lab) [address] [place], [address], 04/18/2023 13:26:12 04/18/19 24 04/18/2023 COMPR EHENS [place] METAB OLIC PANEL sodium 137 mmol/ L 137-14 5 Not Available [facility] (Lab) [address] [place], [address], 04/18/2023 13:26:17 04/18/19 24 04/18/2023 COMPR EHENS [place] METAB OLIC PANEL potassium 5.0 mmol/ L 3.5-5. 1 Not Available [facility] (Lab) [address] [place], [address], 04/18/2023 13:26:17 04/18/19 24 04/18/2023 COMPR EHENS [place] METAB OLIC PANEL chloride 104 mmol/ L 98-107 Not Available [facility] (Lab) [address] [place], [address], 04/18/2023 13:26:17 04/18/19 24 04/18/2023 COMPR EHENS [place] METAB OLIC PANEL carbon dioxide 28 mmol/ L 22-30 Not Available [facility] (Lab) [address] [place], [address], 04/18/2023 13:26:17 04/18/19 24 04/18/2023 COMPR EHENS [place] METAB OLIC PANEL anion gap 10.0 mmol/ L 14-22 low Not Available [facility] (Lab) [address] [place], [address], 04/18/2023 13:26:17 04/18/19 24 04/18/2023 COMPR EHENS [place] METAB OLIC PANEL glucose 102 mg/dL 70-99 high Not Available [facility] (Lab) [address] [place], [address], 04/18/2023 13:26:17 04/18/19 24 04/18/2023 COMPR EHENS [place] METAB OLIC PANEL BUN 16 mg/dL 8-19 Not Available [facility] (Lab) [address] [place], [address], 04/18/2023 13:26:17 04/18/19 24 04/18/2023 COMPR EHENS [place] METAB OLIC PANEL creatinine 0.87 mg/dL 0.66-1 .25 Not Available [facility] (Lab) [address] [place], [address], 04/18/2023 13:26:17 04/18/19 24 04/18/2023 COMPR EHENS [place] METAB OLIC PANEL GFR >60 Refer ence Range : Galva ge GFR Healt hy Adult : >60 [...] calcu lator is avail able on the F websi te: https ://braden w.eric edwardsy.o rg/pr ofess ional s/kdo qi/gf r_cal culat or Not Available [facility] (Lab) [address] [place], [address], 04/18/2023 13:26:17 04/18/19 24 04/18/2023 COMPR EHENS [place] METAB OLIC PANEL alkaline phosphatase 50 U/L 38-126 Not Available [facility] (Lab) [address] [place], [address], 04/18/2023 13:26:17 04/18/19 24 04/18/2023 COMPR EHENS [place] METAB OLIC PANEL alanine aminotransfe rase 26 U/L 0-50 Not Available [facility] (Lab) [address] [place], [address], 04/18/2023 13:26:17 04/18/19 24 04/18/2023 COMPR EHENS [place] METAB OLIC PANEL aspartate aminotransfe rase 21 U/L 15-46 Not Available [facility] (Lab) [address] [place], [address], 04/18/2023 13:26:17 04/18/19 24 04/18/2023 COMPR EHENS [place] METAB OLIC PANEL bilirubin, total 0.30 mg/dL 0.20-1 .30 Not Available [facility] (Lab) [address] [place], [address], 04/18/2023 13:26:17 04/18/19 24 04/18/2023 COMPR EHENS [place] METAB OLIC PANEL calcium 9.6 mg/dL 8.4-10 .2 Not Available [facility] (Lab) [address] [place], [address], 04/18/2023 13:26:17 04/18/19 24 04/18/2023 COMPR EHENS [place] METAB OLIC PANEL total protein 6.4 g/dL 6.3-8. 2 Not Available [facility] (Lab) [address] [place], [address], 04/18/2023 13:26:17 04/18/19 24 04/18/2023 COMPR EHENS [place] METAB OLIC PANEL albumin 3.6 g/dL 3.4-5. 0 Not Available [facility] (Lab) [address] [place], [address], 04/18/2023 13:26:17 04/18/19 24 04/18/2023 COMPR EHENS [place] METAB OLIC PANEL globulin 2.8 g/dL 2.6-4. 2 Not Available [facility] (Lab) [address] [place], [address], 04/18/2023 13:26:17 04/18/19 24 04/18/2023 COMPR EHENS [place] METAB OLIC PANEL A/G ratio 1.3 ratio 1.0-2. 0 Not Available [facility] (Lab) [address] [place], [address], 04/18/2023 13:26:17 04/18/19 24 04/18/2023 T4 FREE free T4 0.89 NG/dL 0.78-2 .19 Not Available [facility] (Lab) [address] [place], [address], 04/18/2023 13:29:04 04/18/19 24 04/18/2023 TSH thyroid-stim ulating hormone 1.320 uIU/m L 0.465- 4.680 Not Available [facility] (Lab) [address] [place], [address], 04/18/2023 13:29:52 04/18/19 24 04/18/2023 HEMOG LOBIN A1C HA1C 5.9 % 4.0-6. 0 Diabe rona Nivia sharma Crite celestine: <5.7% Consi stent with absen ce of diabe rona 5.7-6 .4% Consi stent with incre ased risk for diabe rona (pred iabet es) >OR=6 .5% Consi stent with diabe rona REFER ENCE: Diabe rona Care 2016, 39(Mathur ppl.1 ):s13 -s22 Not Available [facility] ([facility]) [address] [facility], [place], [address], 04/18/2023 21:04:03 04/01/20 23 04/01/2023 XR, chest , 2 view No observ ation record ed. [address], [address], 04/04/2023 12:14:07 05/05/19 24 05/04/2023 US, echoc ardio gram No observ ation record ed. [address] [facility] [address], [place], [address], 05/05/2023 14:41:24 05/05/19 24 05/04/2023 US, doppl er, venou s No observ ation record ed. [address] [facility] [address], [place], [address], 05/05/2023 14:43:29 05/24/19 24 05/24/2023 pharm acolo gic nucle ar stres s test No observ ation record ed. [address] [facility] [address], [place], [address], 05/25/2023 07:10:43 08/05/19 24 08/05/2023 XR, chest , 2 view No observ ation record ed. [address] [place], [address], 08/06/2023 09:05:32 08/06/19 24 08/05/2023 XR, chest , 2 view No observ ation record ed. [address] [place], [address], 08/07/2023 06:48:18 08/30/19 24 08/30/2023 XR, chest , 2 view No observ ation record ed. [place] [address] [place], [address], 08/31/2023 07:45:26 08/31/19 24 08/30/2023 XR, chest , 2 view No observ ation record ed. [email or web address] [facility] (Imaging) [address] [place] [address], [address], 08/31/2023 13:46:09 01/26/20 24 01/26/2024 XR, wrist No observ ation record ed. [address] [place], [address], 01/26/2024 18:00:58 01/26/20 24 01/26/2024 XR, hand No observ ation record ed. [address] [place], [address], 01/28/2024 20:53:09 05/30/19 25 05/30/2024 XR, chest , 2 view No observ ation record ed. [place] [address] [place], [address], 05/30/2024 14:33:35 05/30/19 25 05/30/2024 XR, chest , 2 view No observ ation record ed. [place] [address] [place], [address], 05/30/2024 15:12:26 Result Notes None recorded. Problems Name Problem SNOMED Code Status Onset Date Resolution Date Notes Provider Name and Address Organization Details Recorded Time Hyperchole sterolemia 73100473 Active Not Available [facility] 3 15:58:44 Epiploic appendagit is 0448579361976 9109 Active 2016 Not Available [facility] 3 15:58:44 Acute sinusitis 96415534 Active 2021 Not Available [facility] 3 15:58:44 Cataract 076588785 Active Not Available [facility] 3 15:58:44 Fracture of metacarpal bone 611431380 Active 2021 Not Available [facility] 3 15:58:44 Fracture of metacarpal bone 545269500 Active 2021 Not Available [facility] 3 15:58:44 Glaucoma 38303695 Active Not Available [facility] 3 15:58:44 Disorder of prostate 68007124 Active 2022 Not Available [facility] 3 15:58:44 Obesity 893848147 Active 2022 Not Available [facility] 3 15:58:44 Painless rectal bleeding 001705430 Active 2021 Not Available [facility] 3 15:58:44 Anxiety 40777947 Active Not Available [facility] 3 15:58:44 Coronary arterioscl erosis 71269811 Active Not Available [facility] 3 15:58:44 Cervical radiculopa thy 87399079 Active 2021 Not Available [facility] 3 15:58:44 COVID-19 710357132 Active 2021 Not Available [facility] 3 15:58:45 Erectile dysfunctio n 814060513 Active 2021 Not Available [facility] 3 15:58:45 Closed fracture of metacarpal bone 643197491 Active 2022 AG[place]O [place] [facility] 3 10:33:23 Carpal tunnel syndrome of right wrist 0395002799619 08 Active 2022 Roshan Mednez MD [address], [address], [place], [address] , [place] [facility] 3 13:08:08 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 2022 Roshan Mendez MD [address], [address], [place], [address] , [place] [facility] [employer] 3 13:08:17 Gastroesop hageal reflux disease 955531507 Active 2022 Jewel Frances MD [address], [address], [place], [address] , [place] [facility] 3 15:08:42 Wheezing 51069807 Active 2022 PACHECO [place], [place] [facility] 3 10:10:49 Acute bronchitis 37506214 Active 2022 Jewel Frances MD [address], [address], [place], [address] , [facility] 3 10:36:02 Hyperglyce brenton 65753526 Active 2023 Jewel Frances MD [address], [address], [place], [address] , [facility] 4 12:31:45 Pharyngiti s 814666444 Active 2023 Jewel Frances MD [address], [place], [address] , [facility] 4 11:55:55 Cough 54984499 Active 2023 PACHECO [place] [facility] 4 15:52:13 Problem Notes None recorded. Procedures Surgical History Date Name Laterality Status Provider Name and Address Organization Details Recorded Time Knee completed AGAPITO [place] - [facility] 08/02/2022 08:59:09 Imaging Results Imaging Date Name Status LastModified by Organization Details LastModified Time 04/01/2023 [facility] [place] [address] [facility] [address], [place], [address], 04/04/2023 12:14:07 05/04/2023 US, echocardiogram completed [address] [facility] [address], [place], [address], 05/05/2023 14:41:24 05/04/2023 US, doppler, venous completed [address] [facility] [address], [place], [address], 05/05/2023 14:43:29 05/24/2023 pharmacologic nuclear stress test completed [address] [facility] [address], [place], [address], 05/25/2023 07:10:43 08/05/2023 XR, chest, 2 view completed [address] [place], [address], 08/06/2023 09:05:32 08/05/2023 XR, chest, 2 view completed [address] [place], [address], 08/07/2023 06:48:18 08/30/2023 XR, chest, 2 view completed [address] [place], [address], 08/31/2023 07:45:26 08/30/2023 XR, chest, 2 view completed [email or web address] [place] [address]) [address] [place] [address], [address], 08/31/2023 13:46:09 01/26/2024 XR, wrist completed [address] [place], [address], 01/26/2024 18:00:58 01/26/2024 XR, hand completed [address] [place], [address], 01/28/2024 20:53:09 05/30/2024 XR, chest, 2 view completed [address] [place], [address], 05/30/2024 14:33:35 05/30/2024 XR, chest, 2 view completed [address] [place], [address], 05/30/2024 15:12:26 Procedure Notes None recorded. Medical Equipment None Reported. Allergies No known drug allergies Medications Name Sig Start Date Stop Date Status Note LastModified by Organization Details LastModified Time losartan 50 mg tablet TAKE 1 TABLET BY MOUTH DAILY active Not Available Not Available No t Available amoxicillin 500 mg capsule TAKE 1 CAPSULE BY MOUTH THREE TIMES DAILY FOR 10 DAYS 06/04 completed Not Available Not Available Not Available atorvastati n 40 mg tablet TAKE [...] 3 times a day by oral route. 06/04 completed Not Available Not Available Not Available metoprolol succinate ER 50 mg tablet,exte nded release 24 hr TAKE 1 TABLET BY MOUTH EVERY DAY 06/04 completed Not Available Not Available Not Available hydrocodone 5 mg-acetamin ophen 325 mg tablet TAKE 1 TABLET BY MOUTH ONCE DAILY 06/04 completed Not Available Not Available Not Available dexamethaso ne 6 mg tablet TAKE [...] administe red by the provider 05/20 completed [facility] [place]: 0003- 0494- 20 Not Available Not Available Not Available baclofen 10 mg tablet TAKE 1 TABLET BY MOUTH 4 TIMES DAILY 04/19 completed Not Available Not Available Not Available hydrocodone 7.5 mg-acetamin ophen 325 mg tablet TAKE ONE TABLET BY MOUTH EVERY 6 HOURS NEEDED FOR PAIN 06/04 completed Not Available Not Available Not Available cephalexin 500 mg capsule TK 1 [...] No t Available cefdinir 300 mg capsule TAKE 1 CAPSULE BY MOUTH EVERY 12 HOURS 06/04 completed Not Available Not Available Not Available fluticasone propionate 50 mcg/actuati on nasal [...] Updated DateTime 3 182.88 cm 30.2 kg/m2 927291. 1 g 77 /min 97 [degF] 97 % 97 % 134 mm[Hg] 72 mm[Hg] Xin Almanza [facility] 3 14:50:19 Date Recorded Body height Body mass index (BMI) Body weight Body temperature Heart rate Oxygen saturation Oxygen saturation in Arterial blood by Pulse oximetry Systolic blood pressure Diastolic blood pressure Provider Name and Address Organization Details Last Updated DateTime 4 182.88 cm 29.2 kg/m2 30526.3 6 g 97.8 [degF] 62 /min 98 % 98 % 126 mm[Hg] 80 mm[Hg] Laurie Kebede MA [facility] 4 12:01:31 Date Recorded Body height Body mass index (BMI) Body weight Heart rate Body temperature Oxygen saturation Oxygen saturation in Arterial blood by Pulse oximetry Systolic blood pressure Diastolic blood pressure Provider Name and Address Organization Details Last Updated DateTime 4 182.88 cm 29.3 kg/m2 80847.9 5 g 68 /min 97 [degF] 98 % 98 % 122 mm[Hg] 70 mm[Hg] Xin [employer] 4 11:24:07 Date Recorded Body height Body mass index (BMI) Body weight Heart rate Body temperature Oxygen saturation Oxygen saturation in Arterial blood by Pulse oximetry Systolic blood pressure Diastolic blood pressure Provider Name and Address Organization Details Last Updated DateTime 4 182.88 cm 28.3 kg/m2 51857.8 1 g 57 /min 97.8 [degF] 98 % 98 % 110 mm[Hg] 70 mm[Hg] AGAPITO Mosley [facility] [facility] 4 14:26:01 Date Recorded Body height Body mass index (BMI) Body weight Heart rate Body temperature Oxygen saturation Oxygen saturation in Arterial blood by Pulse oximetry Systolic blood pressure Diastolic blood pressure Provider Name and Address Organization Details Last Updated DateTime 5 182.88 cm 29.2 kg/m2 29435.3 6 g 50 /min 97 [degF] 97 % 97 % 122 mm[Hg] 84 mm[Hg] Xin [employer] 5 11:05:56 Social History Question Answer Notes LastModified by Organizat ion Details LastModified Time Tobacco Smoking Status Never Smoker Not Available [facility] 06/08/2022 15:57:24 Do You Have An Advance Directive? No MIGRATION.[id number] Information not available 06/08/2022 What Is Your Level Of Alcohol Consumption? None MIGRATION.84267 77214 Information not available 06/08/2022 In The 14 Days Before Symptom Onset, Have You Had Close Contact With A Laboratory-confir med COVID-19 While That Case Was Ill? No MIGRATION.54264 71038 Information not available 06/08/2022 In The 14 Days Before Symptom Onset, Have You Had Close Contact With A Person Who Is Under Investigation For COVID-19 While That Person Was Ill? No MIGRATION.16533 66605 Information not available 06/08/2022 What Type Of Diet Are You Following? REGULAR MIGRATION.02395 17589 Information not available 06/08/2022 Have There Been Any Changes To Your Family Or Social Situation? No MIGRATION.85252 11714 Information not available 06/08/2022 What Is The Fluoride Status Of Your Home? Unknown MIGRATION.39711 58297 Information not available 06/08/2022 Do You Use Insect Repellent Routinely? No MIGRATION.79012 97458 Information not available 06/08/2022 Where Do You Live? [place]House MIGRATION.24954 25421 Information not available 06/08/2022 Do You Have A Medical Power Of Veterinary Inspector? No MIGRATION.34879 74125 Information not available 06/08/2022 What Was The Date Of Your Most Recent Tobacco Screening? 05/20/2022 MIGRATION.78691 55420 Information not available 06/08/2022 Do You Have Any Pets? Yes MIGRATION.17215 35545 Information not available 06/08/2022 What Is Your Relationship Status? MIGRATION.10012 04392 Information not available 06/08/2022 Do You Use Your Seat Belt Or Car Seat Routinely? Yes MIGRATION.36698 54262 Information not available 06/08/2022 Do You Have Smoke And Carbon Monoxide Detectors In Your Home? Yes MIGRATION.07099 37532 Information not available 06/08/2022 Are You Passively Exposed To Smoke? No MIGRATION.76600 09882 Information not available 06/08/2022 Are There Any Smokers In Your House? No MIGRATION.81397 42805 Information not available 06/08/2022 Do You Use Sunscreen Routinely? Yes MIGRATION.83536 92040 Information not available 06/08/2022 Have You Recently Traveled Abroad? No MIGRATION.74897 05815 Information not available 06/08/2022 Do You Have Any Dietary Restrictions? No MIGRATION.04832 76212 Information not available 06/08/2022 Sex: Unknown Functional Status Question Answer Note LastModified by Organizat ion Details LastModified Time What is your exercise level? Moderate [id number] Information not available 06/08/2022 Mental Status None recorded. Family History Relationship Description Onset Age of this Age Resolved Age Notes LastModified by Organization Details LastModified Time Brother Family history of malignant neoplasm MIGRATION.032 [id number] Not available 06/08/2022 15:57:26 Sister Diabetes mellitus MIGRATION.190 [id number] Not available 06/08/2022 15:57:26 Father Heart disease MIGRATION.299 [id number] Not available 06/08/2022 15:57:26 Father Hypertensive disorder MIGRATION.361 [id number] Not available 06/08/2022 15:57:27 Son Kidney disease MIGRATION.137 [id number] Not available 06/08/2022 15:57:27 Notes:Mother 61 fro [...] HEARING PROBLEMS N MUMPS N SHINGLES N BOWEL PROBLEMS N DEPRESSION (INCLUDING POST ) N STROKE/TIA N ULCERS N BENIGN PROSTATIC HYPERPLASIA N MEASLES N HYPOTENSION N MYOCARDIAL INFARCTION N OBESITY N GERD/NAUSEA N ANEURYSM N URINARY/BLADDER/KIDNEY PROBLEMS N CORONARY ARTERY DISEASE (CAD) N ADDICTION CONCERNS N ENDOMETRIOSIS N Impotence N USE OF BLOOD THINNERS Y SKIN [...] GLAUCOMA N FOOT PROBLEM N DIVERTICULITIS N CHICKENPOX N SLEEP APNEA N INFECTIOUS DISEASE N HEART ARRHYTHMIA N PROSTATE N INSOMNIA N HIGH CHOLESTEROL / HYPERLIPIDEMIA Y HYPERTHYROIDISM N EYE PROBLEMS N EDEMA N CHRONIC PAIN SYNDROME N HYPOTHYROIDISM N CAROTID BLOCKAGE N CONSTIPATION N BACK / NECK PROBLEMS N HAVE YOU BEEN HOSPITALIZED OR SEEN IN THE MEDICAL CENTER IN THE PAST YEAR ? N ATHEROSCLEROSIS [...] Brain Problems N HERPES N DEMENTIA N HEADACHES/MIGRAINES N SEIZURES/EPILEPSY N VASCULAR DISEASE N PACEMAKER N Blood Disorder N DIZZINESS N HEART DISEASE/HEART PROBLEMS N KIDNEY DISEASE N MULTIPLE SCLEROSIS N CARDIAC ARRHYTHMIA N CANCER: SPECIFY N ATRIAL FIBRILLATION N Gall Stones N PULMONARY EMBOLISM N AUTOIMMUNE DISEASE N Immunizations Vaccine Type Date Status Note Provider Nam e and Address Organization Details Recorded Time influenza, unspecified formulation 3 completed Holly Chavez CMA null, [facility] 05/08/2023 09:48:34 influenza, unspecified formulation 4 completed AGAPITO Mosley null, [facility] 02/13/2024 16:39:11 Pneumococcal conjugate PCV20, polysaccharide FHT499 conjugate, adjuvant, PF 4 completed AGAPITO Mosley, [facility] 02/13/2024 16:42:00 zoster recombinant 4 completed AGAPITO Mosley, [facility] 02/13/2024 16:42:38 Influenza, split virus, trivalent, preservative [address] [facility] 06/08/2022 15:59:51 Influenza, split virus, trivalent, preservative [address] [facility] 06/08/2022 15:59:52 COVID-19 Non-US Vaccine, Product Unknown [address] [facility] 06/08/2022 15:59:52 Influenza, adjuvanted, trivalent, PF [address] [facility] 06/08/2022 15:59:52 Influenza, split virus, quadrivalent, preservative [address] [facility] 06/08/2022 15:59:52 Influenza, split virus, quadrivalent, preservative 9 completed Not Available [facility] 06/08/2022 15:59:52 Influenza, split virus, quadrivalent, PF 8 completed Not Available [facility] 06/08/2022 15:59:52 Influenza, split virus, quadrivalent, preservative 7 completed Not Available [facility] 06/08/2022 15:59:52 Influenza, split virus, quadrivalent, preservative 5 completed Not Available [facility] 06/08/2022 15:59:52 Influenza, split virus, quadrivalent, PF 6 completed Not Available [facility] 06/08/2022 15:59:52 Past Encounters Encounter ID Performer Location Encounter Start Date Encounter Closed Date Diagnosis/Indication Diagnosis SNOMED-CT Code Diagnosis ICD10 Code Diagnosis Note [id number] [facility] [place] [address] [facility] [address] [place] [address] 07/13/2020 00:00:00 07/14/2020 09:29:55 [id number] [facility] Internal [place] [address] [place] [address] 10/06/2020 00:00:00 10/06/2020 11:30:20 [id number] [facility] Internal Med Jennifer llrebel [facility] [address] [place] [address] 04/06/2021 00:00:00 04/06/2021 15:19:51 [id number] [facility] Internal Med Jennifer christy [facility] [place] [address] [address] 07/13/2021 00:00:00 07/13/2021 16:15:12 [id number] [facility] [place] [address] [facility] [address] [place] [address] 07/30/2021 00:00:00 07/30/2021 10:54:43 [id number] [facility] [place] [address] [place] [address] 08/17/2021 00:00:00 08/17/2021 13:29:42 [id number] [facility] [place] [address] [place] [address] 08/31/2021 00:00:00 08/31/2021 12:29:11 [id number] [facility] [place] [address] [place] [address] 11/16/2021 00:00:00 11/16/2021 12:50:44 [id number] [facility] Internal [facility] [place] [facility] [address] [place] [address] 05/20/2022 00:00:00 05/20/2022 14:41:45 [id number] Roshan Mendez MD [facility] [place] [place] 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 We will see him back in a few months for follow-up [id number] Roshan Mendez MD [facility] [place] 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 292906643 G56.21 [id number] Jewel Frances MD [facility] [place] [address] [place] [address] y , [place] [address] 10/18/2022 14:24:23 10/18/2022 15:16:40 Coronary arteriosclerosis 47592855 I25.10 Hypercholesterolemia 136 56922 E78.00 Gastroesop hageal reflux disease 325481615 K21.9 Anxiety 08415741 F41.9 Disorder of prostate 302 83040 N42.9 [id number] Jewel Frances MD [facility] Internal Med Jennifer christy [address] [place] [address] [place] [address] 04/14/2023 11:36:01 04/14/2023 12:39:21 Coronary arteriosclerosis 98603504 I25.10 Hypercholesterolemia 136 02935 E78.00 Hyperglycemia 13281673 R 73.9 [id number] Jewel Frances MD [facility] Internal Med [place] christy [address] [place] [address] [place] [address] 04/21/2023 11:06:23 04/21/2023 11:50:27 [id number] Jewel Frances MD [facility] Internal Med [place] llre[place] [address] [place] [address] [place] [address] 11/09/2023 14:14:23 11/09/2023 15:01:04 Coronary arteriosclerosis 38016436 I25.10 Hypercholesterolemia 136 76614 E78.00 Gastroesop hageal reflux disease 088811771 K21.9 Anxiety 60290828 F41.9 Disorder of prostate 302 36424 N42.9 [id number] Jewel Frances MD [facility] Primary Care Bette christy [address] [facility] [address] [place] [address] 06/04/2024 10:40:49 06/04/2024 11:43:16 Coronary arteriosclerosis 57576328 I25.10 Hypercholesterolemia 136 93190 E78.00 Gastroesop hageal reflux disease 746108055 K21.9 Anxiety 80616727 F41.9 Health Concerns Section Related Observation LastModified by Organization Detai ls LastModified Time None Recorded Concern Status LastModified by Organization Details LastModified Time None Recorded Advance Directives Directive N: Payers Encounter Date Sequence Insurance Name Policy Number Policy Acosta Covered Member ID Acosta Member ID Guarantor Name 10/18/2022 1 [employer] [place] (MEDICARE - MEDICAID REPLACEMENT HMO) [id number] [place]ay [place] [id number] [place]ay [place] 04/14/2023 1 [employer] [place]MEDICARE - MEDICAID REPLACEMENT HMO) [id number] Vinay Dilcia [id number] [place]ay [place] 04/21/2023 1 [employer] [place]MEDICARE - MEDICAID REPLACEMENT HMO) [id number] Vinay Dilcia [id number] Vinay Dilcai 11/09/2023 1 [employer] [place]MEDICARE - MEDICAID REPLACEMENT HMO) [id number] [place]ay [place] [id number] Vinay Dilcia 06/04/2024 1 [employer] [place]MEDICARE - MEDICAID REPLACEMENT HMO) [id number] Vinay Dilcia [id number] [employer]ay [place] Notes Date Note Type Note Provider Name and Address Organization Details Recorded Time 3 text/html Patient Name: Vinay HaDate Of Service: Monday ( 10.18.2022 ): 1960 [...] 5% (CREAM - TOPICAL) As DirectedVaccination and Perttyvpqrfv3673-72 Hcsfuivms0416-03 Covid PfizerSurgical HistoryBilateral Eye Surgery for Glaucoma, Left Cataract, Coronary Stent LADPreventative Testing Confirmed by Our Maijgeb9904/28/2021 ALBUMIN 4.3 G/DL04/28/2021 PSA 0.43 NG/ML11/25/2016 COLONOSCOPY (10 YEARS) 11/25/2026Social HistoryDoes not 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 HistoryMother 61 from complications of back surgeryFather 74 from CAD and PneumoniaOne brother living with laryngeal CA and CADTwo sisters living one DM and CAD(2) Jewel Frances MD [address] [place] [address] [address], [place], [address], [facility] 10/18/2022 15:15:35 4 text/html Patient Name: Vinay [...] 5% (CREAM - TOPICAL) As DirectedVaccination and Qaavejyechvm6531-44 Wjdpttsyz4433-49 Covid PfizerSurgical HistoryBilateral Eye Surgery for Glaucoma, Left Cataract, Coronary Stent LADPreventative Testing Confirmed by Our Qlvxnyq5610/21/2022 PSA04/28/2021 ALBUMIN 4.3 G/DL N011/25/2016 COLONOSCOPY (10 YEARS) 11/25/2026Social HistoryDoes not 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 HistoryMother 61 from complications of back surgeryFather 74 from CAD and PneumoniaOne brother living with laryngeal CA and CADTwo sisters living one DM and CAD(2) Jweel Frances MD [address] [facility] [address], [place], [address], [facility] [employer] 04/14/2023 12:43:19 4 text/html Patient Name: Vinay [...] Systemic Symptoms:none Medication Reconciliation: from medication list. [id number]: Echocardiogram estimated ejection fraction 60%. 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 This represents approximately a 2.9% change in weight. Weight change attributable to lifestyle changes. Vital Signs:Blood Pressure: Sitting Rt. Arm 122/84Pulse: Sitting 50 /min and RegularRespiratory Rate: 16Height 72 in or 1.8 mWeight 215 lb or 97.5 kgBMI 29.2Temperature: 97 F or 36.1 CPulse Oximetry: 97 % at rest on no oxygen Chief Complaint: Addressed in HPI Problems or conditions discussed in the HPI were the only ones reviewed during the encounter.Only social and family history addressed in the HPI were reviewed during this encounter. Attendant(s): WifeConstitutional and Systemic Symptoms:none Medication Reconciliation: from medication list. [id number]: Echocardiogram estimated ejection fraction 60%. There is [...] #1. Coronary Artery Disease: There has been minimal change in frequency, duration or intensity of chest pain. Other Complaints: history of bradycardia. Is scheduled for a Holter monitor at Cardiology. The frequency of anginal attacks is none at all. 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 No [...] most meals Treatment consists medications taken on no regular basis. Current therapy includes Omeprazole. There has been no nausea. No change in he frequency or intensity of symptoms. Has had no melena. Has had no . Discussed use of H2 antagonists NA. #4. Anxiety Disorder: History of anxiety disorder. [...] there is no contraindication to continue current therapy. Active Medication ListLipitor 40 MG (TABLET - ORAL) One Daily For CholesterolAspirin 325 MG TABLET One DailyMetoprolol Tartrate 25 MG TABLET One DailyWellbutrin Sr 150 MG (TABLET, EXTENDED RELEASE - ORAL) One Twice DailyNitrostat 0.4 MG (TABLET - SUBLINGUAL) One Sl Prn Chest PainZetia 10 MG (TABLET - ORAL) One DailytMultivitamin DailyOmeprazole 20 MG CAPSULE, COATED PELLETS Once DailySingulair 10 MG (TABLET - ORAL) One DailyFluorouracil 5% (CREAM - TOPICAL) As Directed Vaccination and Immunization( ) 2024-02 INFLUENZA( ) 2024-02 PREVNAR 20( ) 2024-02 SHINGRIX(X) 2020-11 [employer] [facility] Vryltsi7333-81 Bilateral Eye Surgery for Euopwezl2621-22 Left Toepayln9467-93 Coronary Stent LAD Preventative Testing( ) 11/23/2023 PSA 0.8 11/22/2024( ) 04/28/2021 Albumin 4.3 G/DL N( ) 11/25/2016 Colonoscopy (10 Years) 11/25/2026 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
--- OUTSIDE RECORDS SUMMARY | 2024-06-05 07:45 | XMS_ITS | Referral Summary ---
Author Organization [facility] Address [address] [place] [place] [address] Care Team Providers Care Teacher Specialist Name Role Phone Jewel Frances MD Primary Care Provider [phone] Source Comments [facility],non-owned Affiliates and Associated Physician Practices is amultiple site organization consisting of ambulatory clinics and hospital sitesin [place], [place], [place] and [place]. This disclosure is being madepursuant to the Care Everywhere program and may not contain all information available regarding this patient. Last updated 17.[facility] Allergies No known active allergies Medications * [...] Comments Blood Pressure 147/99 05/06/2018 12:53 PM CLIMBING GUIDE Pulse 88 05/06/2018 12:53 PM CLIMBING GUIDE Temperature 36.9 C (98.4 F) 05/06/2018 12:53 PM CLIMBING GUIDE Respiratory Rate 16 05/06/2018 12:53 PM CLIMBING GUIDE Oxygen Saturation 100% 05/06/2018 12:53 PM CLIMBING GUIDE Inhaled Oxygen Concentration - - Weight 102.1 kg (225 lb) 05/06/2018 12:53 PM CLIMBING GUIDE Height 182.9 cm (6') 05/06/2018 12:53 PM CLIMBING GUIDE Body Mass Index 30.52 05/06/2018 12:53 PM CLIMBING GUIDE Plan of Treatment Not on file Care Teams Teacher Specialist Relationship Specialty Start Date End Date Jewel Frances MD [address] [place] [address] [address] [place] [address] PCP - General Internal Medicine 05/06/18
--- OUTSIDE RECORDS SUMMARY | 2024-06-05 07:45 | XMS_ITS | Clinical Summary ---
Author Organization [facility] Address [facility] [place] [address] Care Team Providers Care Silk Examiner Name Role Phone Jewel Frances MD Primary Care Provider [phone] Allergies No known active allergies Medications atorvastatin [...] patient's age to complete this topic Insurance [employer] Care Teams Silk Examiner Relationship Specialty Start Date End Date Jewel Frances MD [address] [address] PCP - General INTERNAL MEDICINE 06/28/18
--- OUTSIDE RECORDS SUMMARY | 2024-06-05 07:46 | XMS_ITS | Continuity of Care Document ---
Author Organization [facility] Address [address] [place] [address] Phone Care Team Providers Care Sanitation Manager Name Role Phone Chidi Harper MD Unavailable Unavailable Procedures Procedure Date Office/outpatient Visit, Est Office/outpatient Visit, Est Visual Field Examination(s) Eye Exam, New Patient Corneal Pachymetry Advance Directives Directive Yes / No Effective Date File Name No Information Encounters Encounter Description Practice Location Reason(s) For Visit Diagnoses Date Provider Providers Copied on Encounter Office/outpat ient Visit, Est [facility], [address] [place] [address] [address], [place], [place], [id number], [place] tel:[phone] [facility] No Information [address] [place], [place], [id number], [place]. tel:[phone] Office/outpat ient Visit, Est [facility], [address] [place] [address] [address], [place], [place], [address], [place] tel:[phone] [facility] No Information [address] [facility], [place], [place], [address], [place]. tel:[phone] [facility], [address], [place], [place], [address], [place] tel:[phone] [facility] No Information [address] [place], [id number], . tel:[phone] Referring Provider: Chidi Felipe, [address] [place], [address] . tel:[phone] [facility], [address], [place], [place], [address], tel:[phone] [facility] No Information [address] [facility] [place], [id number], . tel:[phone] Referring Provider: Chidi Felipe, [address] [place], [address] . tel:[phone] Family History Family Member Type Diagnosis Age At Onset No Information Payers Payer name Insurance type Covered green party ID Authoreloya melonie(s) [place] [id number] Social History Type Description Quantity Date Captured [...]
--- OUTSIDE RECORDS SUMMARY | 2024-06-05 07:46 | XMS_ITS | Continuity of Care Document ---
Author Organization [place] [facility] [employer] [place], [facility] [place] Address [address] [facility] [address] [place] [address] Assessment No assessment recorded. Plan of Treatment Reminders Order Date Submit Date Provider Last Modified By Organization Details Last Modified Time Details Appointments None recorded. Lab magnesium , serum or plasma [address] (Lab), [address] [place] [address], [address], 5 11:38:56 vitamin B12, serum [address] (Lab), [address] [place] [address], [address], 5 11:38:57 lipid panel, serum [address] (Lab), [address] [place] [address], [address], 5 11:38:56 CMP, serum or plasma [address] (Lab), [address] [place] [address], [address], 5 11:38:56 Referral None recorded. Procedures None recorded. Surgeries None recorded. Imaging None recorded. Medication Orders None recorded. Patient TargetsNo targets recorded. Patient Instructions Encounter Date Encounter Id Patient Instructions Last Modified By Organization Details Last Modified Time 06/04/2024 [id number] Follow-up edwards ry artery disease, hyperlipidemia, anxiety [...] with voice recognition software. Occasional wrong-word or [id number] substitutions may have occurred due to the inherent limitations of voice recognition software. Read the chart carefully and recognize, using context, where substitutions may have occurred. Created: Jewel Frances M.D. 06.04.2024 10:34 AM [place] [id number] Not available 06/04/2024 11:34:50 Reason for Referral None Reported. Results Created Date Observation Date Name Description Value Unit Range Abnormal Flag Note LastModifiedBy Organization Detail LastModifiedTime 05/30/19 25 05/30/2024 XR, chest , 2 view No observ ation record ed. [address] [place], [address], 05/30/2024 14:33:35 05/30/19 25 05/30/2024 XR, chest , 2 view No observ ation record ed. [address] [place], [address], 05/30/2024 15:12:26 Result Notes None recorded. Problems Name Problem SNOMED Code Status Onset Date Resolution Date Notes Provider Name and Address Organization Details Recorded Time Hyperchole sterolemia 44620688 Active Not Available [facility] 3 15:58:44 Epiploic appendagit is 1917253012510 9109 Active 2016 Not Available [facility] 3 15:58:44 Acute sinusitis 42473821 Active 2021 Not Available [facility] 3 15:58:44 Cataract 140480632 Active Not Available [facility] 3 15:58:44 Fracture of metacarpal bone 145907172 Active 2021 Not Available [facility] 3 15:58:44 Fracture of metacarpal bone 425435621 Active 2021 Not Available [facility] 3 15:58:44 Glaucoma 36957190 Active Not Available [facility] 3 15:58:44 Disorder of prostate 88093535 Active 2022 Not Available [facility] 3 15:58:44 Obesity 313548950 Active 2022 Not Available [facility] 3 15:58:44 Painless rectal bleeding 990473413 Active 2021 Not Available [facility] 3 15:58:44 Anxiety 91268505 Active Not Available [facility] 3 15:58:44 Coronary arterioscl erosis 49194686 Active Not Available [facility] 3 15:58:44 Cervical radiculopa thy 58840007 Active 2021 Not Available [facility] 3 15:58:44 COVID-19 511700669 Active 2021 Not Available [facility] 3 15:58:45 Erectile dysfunctio n 439153915 Active 2021 Not Available [facility] 3 15:58:45 Closed fracture of metacarpal bone 419416619 Active 2022 AGAPITO Santa null, [facility] 3 10:33:23 Carpal tunnel syndrome of right wrist 1702344250769 08 Active 2022 Roshan Mendez MD [address], [place] [address], [place], [address] , [facility] 3 13:08:08 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 Active 2022 Roshan Mendez MD [address] [place] [address], [place], [address] , [facility] 3 13:08:17 Gastroesop hageal reflux disease 242162731 Active 2022 Jewel Frances MD [address] [place] [address], [place], [address] , [facility] 3 15:08:42 Wheezing 58947347 Active 2022 Holly Chavez CMA null, [facility] 3 10:10:49 Acute bronchitis 83477074 Active 2022 Jewel Frances MD [address], [place], [address] , [facility] [employer] [facility] [employer] [facility] 3 10:36:02 Hyperglyce brenton 93857279 Active 2023 Jewel Frances MD [address], [place], [address] , [facility] [employer] [facility] [employer] [facility] 4 12:31:45 Pharyngiti s 939176773 Active 2023 Jewel Frances MD [address], [place], [address] , [employer] [facility] [employer] [facility] 4 11:55:55 Cough 37393178 Active 2023 Holly Chavez CMA null, [employer] [facility] [employer] 4 15:52:13 Problem Notes None recorded. Procedures Surgical History Date Name Laterality Status Provider Name and Address Organization Details Recorded Time Knee completed AGAPITO Jara [facility] [employer] [facility] 08/02/2022 08:59:09 Imaging Results None recorded. Procedure Notes None recorded. Medical Equipment None [...] administe red by the provider 05/20 completed [facility]: 0003- 0494- 20 Not Available Not Available [...] Updated DateTime 5 182.88 cm 29.2 kg/m2 30176.3 6 g 50 /min 97 [degF] 97 % 97 % 122 mm[Hg] 84 mm[Hg] Xin [facility] [employer] [facility] 5 11:05:56 Social History Question Answer Notes LastModified by Organizat ion Details LastModified Time Tobacco Smoking Status Never Smoker Not Available [facility] 06/08/2022 15:57:24 Do You Have An Advance Directive? No MIGRATION.[id number] Information not available 06/08/2022 What Is Your Level Of Alcohol Consumption? None MIGRATION. Information not available 06/08/2022 In The 14 Days Before Symptom Onset, Have You Had Close Contact With A Laboratory-confir med COVID-19 While That Case Was Ill? No MIGRATION. Information not available 06/08/2022 In The 14 Days Before Symptom Onset, Have You Had Close Contact With A Person Who Is Under Investigation For COVID-19 While That Person Was Ill? No MIGRATION.34925 00232 Information not available 06/08/2022 What Type Of Diet Are You Following? REGULAR MIGRATION.52654 29483 Information not available 06/08/2022 Have There Been Any Changes To Your Family Or Social Situation? No MIGRATION.81786 33154 Information not available 06/08/2022 What Is The Fluoride Status Of Your Home? Unknown MIGRATION.05120 89946 Information not available 06/08/2022 Do You Use Insect Repellent Routinely? No MIGRATION.64115 79987 Information not available 06/08/2022 Where Do You Live? [place] MIGRATION.20849 87036 Information not available 06/08/2022 Do You Have A Medical Power Of Electroencephalograph Technician? No MIGRATION.27101 96520 Information not available 06/08/2022 What Was The Date Of Your Most Recent Tobacco Screening? 05/20/2022 MIGRATION.03130 21451 Information not available 06/08/2022 Do You Have Any Pets? Yes MIGRATION.00239 82502 Information not available 06/08/2022 What Is Your Relationship Status? MIGRATION.68542 47115 Information not available 06/08/2022 Do You Use Your Seat Belt Or Car Seat Routinely? Yes MIGRATION.89831 17345 Information not available 06/08/2022 Do You Have Smoke And Carbon Monoxide Detectors In Your Home? Yes MIGRATION.38452 94865 Information not available 06/08/2022 Are You Passively Exposed To Smoke? No MIGRATION.23467 57112 Information not available 06/08/2022 Are There Any Smokers In Your House? No MIGRATION.79332 67057 Information not available 06/08/2022 Do You Use Sunscreen Routinely? Yes MIGRATION.25582 80473 Information not available 06/08/2022 Have You Recently Traveled Abroad? No MIGRATION.45440 21657 Information not available 06/08/2022 Do You Have Any Dietary Restrictions? No MIGRATION.49299 18181 Information not available 06/08/2022 Sex: Unknown Functional Status Question Answer Note LastModified by Organizat ion Details LastModified Time What is your exercise level? Moderate MIGRATION.[id number] 6 Information not available 06/08/2022 Mental Status None recorded. Family History Relationship Description Onset Age of this Age Resolved Age Notes LastModified by Organization Details LastModified Time Brother Family history of malignant neoplasm MIGRATION.240 [id number] Not available 06/08/2022 15:57:26 Sister Diabetes mellitus MIGRATION.000 [id number] Not available 06/08/2022 15:57:26 Father Heart disease MIGRATION.316 [id number] Not available 06/08/2022 15:57:26 Father Hypertensive disorder MIGRATION.669 [id number] Not available 06/08/2022 15:57:27 Son Kidney disease MIGRATION.063 [id number] Not available 06/08/2022 15:57:27 Notes:Mother 61 fro [...] HAVE YOU BEEN HOSPITALIZED OR SEEN IN [facility] IN THE PAST YEAR ? N [...] influenza, unspecified formulation 3 completed Holly Chavez MEDICAL CHIEF TECHNICIAN null, [facility] 05/08/2023 09:48:34 influenza, unspecified formulation 4 completed Kyara Guo RMA null, [facility] 02/13/2024 16:39:11 Pneumococcal conjugate PCV20, polysaccharide FTF381 conjugate, adjuvant, PF 4 completed AGAPITO Mosley null, [facility] 02/13/2024 16:42:00 zoster recombinant 4 completed AGAPITO Mosley null, [facility] 02/13/2024 16:42:38 Influenza, split virus, trivalent, preservative 4 completed Not Available [facility] 06/08/2022 15:59:51 Influenza, split virus, trivalent, preservative 4 completed Not Available [facility] 06/08/2022 15:59:52 COVID-19 Non-US Vaccine, Product Unknown 1 completed Not Available [facility] 06/08/2022 15:59:52 Influenza, adjuvanted, trivalent, PF 2 completed Not Available [facility] 06/08/2022 15:59:52 Influenza, split virus, quadrivalent, preservative 1 completed Not Available [facility] 06/08/2022 15:59:52 Influenza, split virus, quadrivalent, preservative 9 completed Not Available [facility] 06/08/2022 15:59:52 Influenza, split virus, quadrivalent, PF 8 completed Not Available [facility] 06/08/2022 15:59:52 Influenza, split virus, quadrivalent, preservative 7 completed Not Available [facility] 06/08/2022 15:59:52 Influenza, split virus, quadrivalent, preservative 5 completed Not Available [facility] 06/08/2022 15:59:52 Influenza, split virus, quadrivalent, PF 6 completed Not Available [facility] 06/08/2022 15:59:52 Past Encounters Encounter ID Performer Location Encounter Start Date Encounter Closed Date Diagnosis/Indication Diagnosis SNOMED-CT Code Diagnosis ICD10 Code Diagnosis Note [id number] Jewel Frances MD [facility] [address] [facility] [address] [place] [address] 06/04/2024 10:40:49 06/04/2024 11:43:16 Coronary arteriosclerosis 00405534 I25.10 Hypercholesterolemia 136 84501 E78.00 Gastroesop hageal reflux disease 152483286 K21.9 Anxiety 19548121 F41.9 Health Concerns Section Related Observation LastModified by Organization Detai ls LastModified Time None Recorded Concern Status LastModified by Organization Details LastModified Time None Recorded Payers Encounter Date Sequence Insurance Name Policy Number Policy Acosta Covered Member ID Acosta Member ID Guarantor Name 06/04/2024 1 [facility] (MEDICARE - MEDICAID REPLACEMENT HMO) [id number] Vinay Ha [id number] Vinay Ha Notes Date Note Type Note Provider Name and Address Organization Details Recorded Time 06/04/2024 text/html Patient Name: Jaxson HaDate Of Service: Monday ( 06.04.2024 ): 1960 [...] Systemic Symptoms:none Medication Reconciliation: from medication list. [id number]: Echocardiogram estimated ejection fraction 60%. There is [...] Nitrostat and Zetia #2. 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
--- OUTSIDE RECORDS SUMMARY | 2024-06-05 07:46 | XMS_ITS | CONTINUITY OF CARE DOCUMENT ---
Author Name dennise, dennise Address Unknown Organization [facility] Address [address] [place] [address] Phone [phone] Care Team Providers Care Senior Sql Developer Name Role Phone Nancy BYRD, Parveen Unavailable [phone] FLORENTIN BYRD, LYNNE Unavailable LYNNE FRANCES MD Unavailable [phone] PROBLEMS Condition Status Date Provider Notes CHEST PAIN active Parveen Cruz MD Edema active Parveen Cruz MD Bradycardia active Lucio Garcia DNP,ASBESTOS SURVEYOR Family History Coronary Hear t Disease male < 55: completed - Patrick Stanley MD Family History Coronary Hear t Disease male < 55: completed - Patrick Stanley MD Hyperlipidemia active Parveen Cruz MD ENCOUNTERS Date Type Provider Location Encounter Diag nosis - In-person encounter Office Visit Parveen Cruz MD [facility] Bradycardia - In-person encounter Office Visit Parveen Cruz MD [facility] - In-person encounter Office Visit Parveen Cruz MD [facility] Edema - In-person encounter Office Visit Parveen Cruz MD [facility] - In-person encounter Office Visit Parveen Cruz MD [facility] - In-person encounter Office Visit Parveen Cruz MD [facility] - In-person encounter Office Visit Parveen Cruz MD [facility] Hyperlipidemia - In-person encounter Office Visit Parveen Cruz MD [facility] - In-person encounter Office Visit Parveen Cruz MD [facility] - In-person encounter Office Visit Patrick Stanley MD [facility] Family History Coronary Heart Disease male < 55:Family History Coronary Heart Disease male < 55: - In-person encounter Office Visit Parveen Cruz MD [facility] - In-person encounter Office Visit Parveen Cruz MD [facility] CHEST PAIN - In-person encounter Office Visit Parveen Cruz MD [facility] - In-person encounter Office Visit Parveen Cruz MD [facility] - In-person encounter Office Visit Parveen Cruz MD [facility] - In-person encounter Office Visit Parveen Cruz MD [facility] - In-person encounter Office Visit Parveen Cruz MD [facility] VITAL SIGNS Date Observation Value Provider Body Mass Index (Ratio) 29.02 kg/m2 Rubens Cruz MD blood pressure, cuff size regular Ke maximi Dex blood pressure, diastolic 80 mm[Hg] Ke maximi Dex blood pressure, systolic 160 mm[Hg] Carol Kowalski oxygen saturation, oximetry 99 % Shira Kowalski pulse rate 50 /min Shira Mcgraw er weight E&M 214 [lb_av] Shira Mcgraw er height E&M 72 [in_i] Shira palumbo Body Mass Index (Ratio) 30.24 kg/m2 Rubens Cruz MD blood pressure, diastolic 76 mm[Hg] Sherly shyam Hernandez blood pressure, systolic 154 mm[Hg] Any a David oxygen saturation, oximetry 90 % Kristenpal Hernandez pulse rate 92 /min Kristenpal Hernandez weight E&M 223 [lb_av] Kristen David blood pressure, cuff size large An shyam David height E&M 72 [in_i] Kristenpal Hernandez Body Mass Index (Ratio) 29.43 kg/m2 Rubens Cruz MD blood pressure, diastolic 82 mm[Hg] An shyam Hernandez blood pressure, systolic 153 mm[Hg] Any pal Hernandez respiratory rate E&M 17 /min Kristen moran blood pressure, cuff size large An shyam David oxygen saturation, oximetry 98 % Kristen David pulse rate 62 /min Kristen David weight E&M 217 [lb_av] Kristen David height E&M 72 [in_i] Kristen David Body Mass Index (Ratio) 30.78 kg/m2 Trac y Lively blood pressure, cuff size large Ke rri Gruenenfdavid blood pressure, diastolic 89 mm[Hg] Ke rri Gruenenfeldreva blood pressure, systolic 164 mm[Hg] Carol Kowalski oxygen saturation, oximetry 99 % Shira Kowalski respiratory rate E&M 16 /min Shira coyne pulse rate 57 /min Shira palumboer weight E&M 227 [lb_av] Shira Urrutianealka er height E&M 72 [in_i] Shira Mcgraw lder Body Mass Index (Ratio) 30.92 kg/m2 Rubens Cruz MD weight E&M 228 [lb_av] Parveen Hutchinson oxygen saturation, oximetry 99 % Parveen Cruz MD pulse rate 50 /min Parveen Hutchinson blood pressure, diastolic 94 mm[Hg] Ra keshawnq Nancy BYRD blood pressure, systolic 170 mm[Hg] Lucius Cruz MD Body Mass Index (Ratio) 30.40 kg/m2 Rubens Cruz MD blood pressure, diastolic 66 mm[Hg] Miranda Boyce blood pressure, systolic 137 mm[Hg] Mishel Boyce oxygen saturation, oximetry 92 % Brii Boyce respiratory rate E&M 18 /min Hemant Boyce pulse rate 91 /min Brii [place] hernan weight E&M 224.2 [lb_av] Brii Clifton ricky height E&M 72 [in_i] BriiWanda Lazoe hernan temperature site temporal [facility] temperature E&M 97.3 [degF] [facility] Body Mass Index (Ratio) 30.51 kg/m2 Rubens Cruz MD blood pressure, diastolic 84 mm[Hg] Er renetta New blood pressure, systolic 130 mm[Hg] Juana New oxygen saturation, oximetry 98 % Xiomara New pulse rate 63 /min Xiomara He weight E&M 225 [lb_av] Xiomara He height E&M 72 [in_i] Xiomara He blood pressure, diastolic 80 mm[Hg] Da milena Mcelroy blood pressure, systolic 130 mm[Hg] Livan Mcelroy pulse rate 63 /min Janette Mcelroy oxygen saturation, oximetry 98 % Janette Mcelroy respiratory rate E&M 18 /min Drew Mcelroy Body Mass Index (Ratio) 32.69 kg/m2 Rodrigo Mcelroy weight E&M 234.4 [lb_av] Janette Mcelroy Body Mass Index (Ratio) 30.51 kg/m2 Bertrand Crouchdney blood pressure, diastolic 60 mm[Hg] Jaxson de luna Bam blood pressure, systolic 100 mm[Hg] Danika Kuhn pulse rate 57 /min Medhat Kuhn oxygen saturation, oximetry 98 % Medhat Kuhn respiratory rate E&M 16 /min Medhat Kuhn weight E&M 218.8 [lb_av] Medhat Kuhn Body Mass Index (Ratio) 30.96 kg/m2 Gabby mayes Balderas blood pressure, diastolic 68 mm[Hg] Me ronald Balderas blood pressure, systolic 106 mm[Hg] Padmini hernandez Balderas pulse rate 64 /min Marylu Balderas oxygen saturation, oximetry 98 % Marylu Balderas respiratory rate E&M 15 /min Marylu Balderas weight E&M 222 [lb_av] Marylu Balderas Body Mass Index (Ratio) 34.45 kg/m2 Ashl ee Skip blood pressure, diastolic 86 mm[Hg] As hlee Skip blood pressure, systolic 130 mm[Hg] Froilan carmela Skip pulse rate 76 /min Brandeerebel Valdivia oxygen saturation, oximetry 99 % Brandee Valdivia respiratory rate E&M 16 /min Brandeecarmela Valdivia weight E&M 247 [lb_av] Brandee Luis Alingsherly blood pressure, diastolic 78 mm[Hg] Jose Raul Watson blood pressure, systolic 119 mm[Hg] Chema Watson Body Mass Index (Ratio) 34.99 kg/m2 Concetta Watson pulse rate 59 /min Aurora Watson oxygen saturation, oximetry 96 % Aurora Watson respiratory rate E&M 17 /min Aurora Watson weight E&M 250 [lb_av] Aurora Watson blood pressure, diastolic 90 mm[Hg] Jose Raul Watson blood pressure, systolic 140 mm[Hg] Chema Watson Body Mass Index (Ratio) 35.13 kg/m2 Concetta Watson pulse rate 79 /min Aurora Watson oxygen saturation, oximetry 96 % Aurora Watson respiratory rate E&M 17 /min Aurora Watson weight E&M 251 [lb_av] Aurora Watson height E&M 71 [in_i] Aurora Watson blood pressure, diastolic 82 mm[Hg] Miranda Ng blood pressure, systolic 122 mm[Hg] Mishel Ng pulse rate 76 /min Ana Fernandes'Dawson oxygen saturation, oximetry 98 % Ana Fernandes'Dawson respiratory rate E&M 18 /min Ana O'Dawson weight E&M 247 [lb_av] Ana Fernandes'Dawson blood pressure, diastolic, left arm 80 mm [Hg] Bobby Pleitez blood pressure, systolic, left arm 120 mm [Hg] Bobby Pleitez blood pressure, diastolic, right arm 80 m m[Hg] Bobby Pleitez blood pressure, systolic, right arm 126 m m[Hg] Bobby Pleitez blood pressure, diastolic 80 mm[Hg] Angelica Pleitez blood pressure, systolic 126 mm[Hg] Angel springer Mcintoshaco pulse rate 55 /min Bobby Mcintoshaco oxygen saturation, oximetry 95 % Bobby Mcintoshacopooja respiratory rate E&M 16 /min Bobby Mcintoshacopooja weight E&M 229 [lb_av] Bobby Saravananacopooja blood pressure, diastolic 88 mm[Hg] Br ittannadeline Epping blood pressure, systolic 145 mm[Hg] Hillary ttachu Pratima pulse rate 97 /min Yoana Wolfed en oxygen saturation, oximetry 97 % Yoana Wolfeden respiratory rate E&M 16 /min Stone argueta Pratima weight E&M 254 [lb_av] Kimmyrimanirebel Wolfed en blood pressure, diastolic, left arm 76 mm [Hg] Nanci Chamberlain MA blood pressure, systolic, left arm 135 mm [Hg] Nanci Chamberlain MA blood pressure, diastolic, right arm 77 m m[Hg] Nanci Chamberlain MA blood pressure, systolic, right arm 128 m m[Hg] Nanci Chamberlain MA pulse rate 62 /min Nanci Chamberlain MA oxygen saturation, oximetry 98 % Nanci Chamberlain MA respiratory rate E&M 18 /min Nanci Chamberlain MA weight E&M 213 [lb_av] Nanci Chamberlani MA ALLERGIES No Known Drug Allergies HISTORY OF MEDICATION USE Medication Status Instructions Dates Provider Indications Com ments metoprolol succinate 25 mg tablet extended release 24 hr active Take 1 tablet by mouth once a day Lucio Garcia DNP,FLO losartan 50 mg tablet active Take 1 tablet by mouth once daily Lucio Garcia DNP,FLO albuterol sulfate 90 mcg/actuation HFA aerosol inhaler active Shira Kowalski montelukast 10 mg tablet active Take 1 tablet by mouth once a day Sihra Kowalski ezetimibe 10 mg tablet active Take 1 tablet by mouth once a day Shira Kowalski ezetimibe 10 mg tablet completed TAKE 1 TABLET BY MOUTH EVERY DAY - Shira Kowalski ezetimibe 10 mg tablet completed Take 1 tablet by mouth once a day - Parveen Cruz MD Nexlizet 180-10 mg tablet completed Take 1 tablet by mouth once a day - Parveen Cruz MD metoprolol succinate 50 mg tablet extended release 24 hr completed Take 1 tablet by mouth once a day TAKE 1 TABLET DAILY - Lucio Garcia DNP,ASBESTOS SURVEYOR Wal-Profen 200 mg tablet completed 1 tablet every six hours as needed - Shira Kowalski TYLENOL TABLET completed 1 tablet every six hours - Shira Kowalski PRILOSEC 10 MG ORAL CAPSULE DELAYED RELEASE active 1 tablet once a day Parveen Cruz MD NAPROXEN 500 MG ORAL TABLET completed one tab four times a day - Brii Boyce VICODIN ES 7.5-300 MG ORAL TABLET completed 1 tablet four times a day - Shira Kowalski BACLOFEN 10 MG ORAL TABLET completed one tab four times daily - Brii Boyce atorvastatin 40 mg tablet active TAKE 1 TABLET BY MOUTH EVERY DAY Shira Kowalski aspirin 81 mg tablet,delayed release (DR/EC) active 1 tablet by mouth once a day Brii Boyce PREDNISONE SOLUTION completed TAKE DIRECTED - Janette Mcelroy trazodone 150 mg tablet completed once a day - Shira Kowalski PLAVIX 75 MG ORAL TABLET completed 1 tab by mouth daily - Norris Campbell LIPITOR 40 MG ORAL TABLET completed ONE TAB. DAILY - Janette Mcelroy AZOPT 1 % OPHTHALMIC SUSPENSION completed 1 drop right eye once daily - Janette Mcelroy COSOPT SOLUTION completed as directed - Brandee Valdivia TRAVATAN Z SOLUTION completed as directed - Janette Mcelroy COMBIGAN SOLUTION completed as dirdcted - Janette Mcelroy METOPROLOL TARTRATE 50 MG ORAL TABLET completed 1 tablet by mouth daily - Xiomara New VITAMIN B-12 TABLET completed once daily - Marylu Balderas OMEPRAZOLE MAGNESIUM CAPSULE DELAYED RELEASE completed - Brandee Valdivia Nitrostat 0.4 mg tablet, sublingual active DISSOLVE 1 TABLET UNDER THE TONGUE EVERY 5 MINUTES NEEDED FOR CHEST PAIN. MAX OF 3 TABLETS IN 15 MINUTES. CALL 911 IF PAIN PERSISTS. Shira Kowalski ZETIA 10 MG ORAL TABLET completed once daily - Janette Mcelroy FISH OIL CAPSULE completed once daily - Marylu Balderas MULTIVITAMINS TABS completed 1 tablet by mouth once a day - Shira Kowalski ASPIRIN 325 MG ORAL TABLET completed 1 tablet by mouth daily - Norris Campbell ISOSORBIDE DINITRATE 30 MG ORAL TABLET completed ONE TAB. DAILY - Ana Ng CRESTOR 40 MG ORAL TABLET completed ONE TAB. DAILY - Marylu Balderas FLP followed by PMD IMDUR 30 MG ORAL TABLET EXTENDED RELEASE 24 HOUR completed ONE TAB. DAILY - Renu Medley RN Wellbutrin XL 150 mg tablet extended release 24 hr completed twice a day - Shira Kowalski PRILOSEC 10 MG ORAL CAPSULE DELAYED RELEASE completed ONE TAB. DAILY PRN - Nanci Chamberlain MA NIASPAN 500 MG ORAL TABLET EXTENDED RELEASE completed ONE TAB. AT BEDTIME - Parveen Cruz MD VYTORIN 10-80 MG ORAL TABLET completed ONE TAB. AT BEDTIME - Renu Medley RN PLAVIX 75 MG ORAL TABLET completed ONE TAB. DAILY - Renu Medley RN SOCIAL HISTORY Date Observation Value Provider personal history of marijuana use no Lucio Garcia DNP,ASBESTOS SURVEYOR drug use no Lucio Garcia DN P,ASBESTOS SURVEYOR alcohol use no Lucio Garcia DN P,ASBESTOS SURVEYOR passive cigarette sm radha exposure no Lucio Garcia DNP,ASBESTOS SURVEYOR smoking status Never smoker Lucio Garcia DNP,ASBESTOS SURVEYOR drug use none Kristen David alcohol use no Kristen David passive cigarette sm radha exposure no Kristen David smoking status Never smoker Kristenpal Hernandez drug use none Parveen Hutchinson alcohol use no Parveen Hutchinson passive cigarette sm radha exposure no Parveen Cruz MD smoking status Never smoker Parveen Cruz MD social history E&M Marital Statu s: L magaly with family/friends E thnicity: Smoking History: P dimple has never smoked. Parveen Cruz MD social history reviewed E&M revi ewed - no changes required Parveen Cruz MD seatbelt usage 100 % Shira savage physical exercise, frequency, days per week yes Shira Kowalski caffeine use, averag e drinks per day yes Shira Kowalski passive cigarette sm radha exposure no Shira Kowalski smoking status Never smoker Shira savage smoking status Never smoker Parveen Cruz MD social history reviewed E&M revi ewed - no changes required Parveen Cruz MD social history E&M Marital Statu s: L magaly with family/friends E thnicity: Smoking History: P dimple has never smoked. Parveen Cruz MD social history reviewed E&M revi ewed - no changes required Parveen Cruz MD seatbelt usage 100 % Brii Lynn saundra physical exercise, frequency, days per week yes Brii Boyce caffeine use, averag e drinks per day yes Brii Boyce passive cigarette sm radha exposure no Brii Lazoenson smoking status Never smoker Brii Lynn brittneyelizabeth social history E&M Marital Statu s: Taco mckenzie with family/friends E thnicity: Smoking History: Pooja musa has never smoked. Parveen Cruz MD seatbelt usage 100 % Xiomara reich-Neri physical exercise, frequency, days per week yes Xiomara Logan-Neri alcohol use, average drinks per day social basis only Xiomararenetta Logan-Neri alcohol use no Xiomararenetta Logan- Neri caffeine use, averag e drinks per day yes Xiomara Logan-Neri drug use none Xiomara Logan- Neri passive cigarette sm radha exposure no Xiomara Logan-Neri smoking status Never smoker Xiomara Sudhakar n-Neri social history reviewed E&M revi ewed - no changes required Xiomara New social history reviewed E&M revi ewed - no changes required Parveen Cruz MD social history reviewed E&M revi ewed - no changes required Patrick Stanley MD seatbelt usage 100 % Marylu reich physical exercise, frequency, days per week yes Marylu Balderas alcohol use, average drinks per day social basis only Marylu Balderas alcohol use no Marylu Balderas caffeine use, averag e drinks per day yes Marylu Balderas drug use none Marylu Balderas passive cigarette sm radha exposure no Marylu Balderas smoking status Never smoker Marylu reich alcohol use no Parveen Hutchinson social history reviewed E&M revi ewed - no changes required Parveen Cruz MD smoking status Never smoker Brandee Valdivia drug use none Parveen Hutchinson social history reviewed E&M reviewed Parveen Cruz MD seatbelt usage 100 % Parveen Cruz MD drug use no Parveen Hutchinson passive cigarette sm radha exposure no Parveen Cruz MD social history reviewed E&M reviewed Parveen Cruz MD smoking status never smoker Aurora Watson social history reviewed E&M reviewed Parveen Cruz MD social history reviewed E&M reviewed Parveen Cruz MD social history reviewed E&M reviewed Parveen Cruz MD physical exercise, frequency, days per week yes [employer] caffeine use, averag e drinks per day yes [employer] alcohol use, average drinks per day social basis only [employer] smoking status Non-smoker [employer] social history E&M Marital Statu s: L magaly with family/friends E thnicity: Parveen Cruz MD drug use none Parveen Hutchinson social history reviewed E&M reviewed Parveen Cruz MD physical exercise, frequency, days per week yes [employer] caffeine use, averag e drinks per day yes [employer] alcohol use, average drinks per day social basis only [employer] smoking status Non-smoker [employer] FUNCTIONAL STATUS Date Observation Value Provider HRA, CV Assess/Plan, Angina (inactive) Management Plan continue current therapy Lucio Garcia DNP,ASBESTOS SURVEYOR HRA, CV Assess/Plan, Angina (inactive) Management Plan continue current therapy Parveen Cruz MD HRA, CV Assess/Plan, Angina (inactive) Management Plan continue current therapy Parveen Cruz MD HRA, CV Assess/Plan, Angina (inactive) Management Plan continue current therapy Parveen Cruz MD HRA, CV Assess/Plan, Angina (inactive) Management Plan continue current therapy Parveen Cruz MD MENTAL STATUS Date Observation Value Provider assessment of judgme nt and insight E&M Alert and oriented to time, place and person. Mood and affect are normal. Parveen Cruz MD assessment of judgme nt and insight E&M Alert and oriented to time, place and person. Mood and affect are normal. Parveen Cruz MD assessment of judgme nt and insight E&M Alert and oriented to time, place and person. Mood and affect are normal. Parveen Cruz MD assessment of judgme nt and insight E&M Alert and oriented to time, place and person. Mood and affect are normal. Parveen Cruz MD assessment of judgme nt and insight E&M Alert and oriented to time, place and person. Mood and affect are normal. Parveen Cruz MD assessment of judgme nt and insight E&M Alert and oriented to time, place and person. Mood and affect are normal. Parveen Cruz MD FAMILY HISTORY Family Member Condition Father DC male <55 Uncle Family History of Co ronary Artery Disease: Paternal Grandmother Family History of C oronary Artery Disease: Paternal Grandfather Family History Ann-Marie nary Heart Disease male < 55: Father Family History Coron dereje Heart Disease male < 55: INSURANCE PROVIDERS Payer name Policy type / Coverage type [facility] green party ID [place] [employer] Medicaid [id number] [place] [employer] Medicare 3000 [id number] ADVANCE DIRECTIVES Name Date DISCUSSED - NO DECISION MADE TREATMENT PLAN Date Name Performer [id number],S,B P fluctuates, but usually in normal range at home per patient. Parveen Cruz MD [id number],SParveen MD [id number],B, Parveen reich MD [id number],SParveen MD [id number],S,Add Nexlezet. Parveen Cruz MD [id number],W,D ietary indiscretion. Will check BP at home. Parveen Cruz MD [id number],C,R emains pain free and asymptomatic. Continue current meds/care. Parveen Cruz MD Cardiology:He is rec eiving alerts from watch that his heart rate is dropping below the 40s at night while resting. Heart rate was 50 in office. Last EKG in April of 2023 showed sinus bradycardia with RBBB. Will decrease metoprolol from 50mg to 25mg. He will also wear a 2 week monitor to further assess the heart rate. Lucio Garcia DNP,[facility] Cardiology: S tress shows small inferior area with mild reperfusion, likely artifact or diaphragm. No chest pain or shortness of breath. Lucio [facility] Cardiology:Blood pre ssure elvated in office. Last ECHO in 04/2023 showed EF 60% with mild MVR. Will add losartan 50mg daily and decrease metoprolol to 25mg daily d/t bradycaria. Heart rate in office is 50. T he following medications were removed from the medication list: Metoprolol Succinate 50 Mg Tablet Extended Release 24 Hr (Metoprolol succinate) ..... Take 1 tablet by mouth once a day take 1 tablet daily His updated medication list for this problem includes: Metoprolol Succinate 25 Mg Tablet Extended Release 24 Hr (Metoprolol succinate) ..... Take 1 tablet by mouth once a day Losartan 50 Mg Tablet (Losartan) ..... Take 1 tablet by mouth once daily Aspirin 81 Mg Tablet,delayed Release (/ec) (Aspirin) ..... 1 tablet by mouth once a day [facility]io [facility] Cardiology:Last LDL in 04/2023 was 87, trig 72. He reports repeat lipids were done in September. Dr. Frances office will fax over results. H is updated medication list for this problem includes: Atorvastatin 40 Mg Tablet (Atorvastatin) ..... Take 1 tablet by mouth every day Ezetimibe 10 Mg Tablet (Ezetimibe) ..... Take 1 tablet by mouth once a day Lucio Garcia DNP,[facility] Cardiology:No chest pain. Lucio Garcia DNP,[facility] Cardiology:No swelli ng today. L eft leg, intermittent. V enous doppler shows left leg GSV insufficiency. R ecommend compression stocking when necessary Lucio [facility] Cardiology Parveen Cruz MD Cardiology Parveen Cruz MD Cardiology Parveen Cruz MD Cardiology:Left leg, intermittent. V enous doppler shows left leg GSV insufficiency. R ecommend compression stocking when necessary Parveen Cruz MD Cardiology:Stress sh ows small inferior area with mild reperfusion, likely artifact or diaphragm. Parveen Cruz MD Cardiology Parveen Cruz MD Cardiology Parveen Cruz MD Cardiology:Needs ECHO and venous dopplers Parveen Cruz MD Cardiology:Now with CP. Needs st ress myoview. Parveen Cruz MD Cardiology:BP fluctu ates, but usually in normal range at home per patient. Parveen Cruz MD Cardiology Parveen Cruz MD Cardiology Parveen Cruz MD Cardiology Parveen Cruz MD Cardiology:Add Nexlezet. Parveen tom MD Cardiology:Dietary i ndiscretion. Will check BP at home. Parveen Cruz MD Cardiology:Remains p ain free and asymptomatic. Continue current meds/care. Parveen Cruz MD Cardiology Parveen Cruz MD Cardiology Parveen Cruz MD Cardiology Parveen Cruz MD Cardiology Parveen Cruz MD Cardiology Parveen Cruz MD Cardiology Parveen Cruz MD Cardiology Parveen Cruz MD Cardiology Parveen Cruz MD Cardiology Parveen Cruz MD Cardiology Parveen Cruz MD Cardiology Parveen Cruz MD Cardiology Parveen Cruz MD HFU Parveen Cruz MD HFU Parveen Cruz MD HFU: H is updated medication list for this problem includes: Metoprolol Tartrate 50 Mg Tabs (Metoprolol tartrate) ..... 1 tablet by mouth daily Aspirin 325 Mg Tabs (Aspirin) ..... 1 tablet by mouth daily Parveen Cruz MD follow up: H is updated medication list for this problem includes: Metoprolol Tartrate 50 Mg Tabs (Metoprolol tartrate) ..... 1 tablet by mouth daily Aspirin 325 Mg Tabs (Aspirin) ..... 1 tablet by mouth daily BP today: 106/68 P rior BP: 130/86 (12/16/2013) Patrick Stanley MD f/u Parveen Cruz MD f/u Parveen Cruz MD f/u Parveen Cruz MD f/u: H is updated medication list for this problem includes: Metoprolol Tartrate 50 Mg Tabs (Metoprolol tartrate) ..... 1 tablet by mouth daily Aspirin 325 Mg Tabs (Aspirin) ..... 1 tablet by mouth daily Orders: E KG ([id number]) Parveen Cruz MD follow up: B P today: 119/78 Prior BP: 140/90 (04/25/2012) N uclear Stress Findings: 1. Normal Richard protocol exercise tolerance test. 2 . Normal left ventricular size and function with a calculated ejection fraction of 52%. 3 . Myocardial scintigraphy is equivocal for lateral apical wall ischemia. - GC (05/16/2012) C ardiac Cath: EF - 60%. % LAD stenosis: 99% bifurcating lesion. (12/02/2003) C ardiac Cath Comments: Successful stenting of the LAD with a 3.0 x 12mm Taxus stent. (12/02/2003) Parveen Cruz MD follow up: B P today: 119/78 P rior BP: 140/90 (04/25/2012) Parveen Cruz MD follow up: B P today: 119/78 Prior BP: 140/90 (04/25/2012) Parveen Cruz MD follow up: O rders: E KG ([id number]) BP today: 119/78 Prior BP: 140/90 (04/25/2012) N uclear Stress Findings: 1. Normal Richard protocol exercise tolerance test. 2 . Normal left ventricular size and function with a calculated ejection fraction of 52%. 3 . Myocardial scintigraphy is equivocal for lateral apical wall ischemia. - (05/16/2012) C ardiac Cath: EF - 60%. % LAD stenosis: 99% bifurcating lesion. (12/02/2003) C ardiac Cath Comments: Successful stenting of the LAD with a 3.0 x 12mm Taxus stent. (12/02/2003) Parveen Cruz MD Follow up: H is updated medication list for this problem includes: Niaspan 500 Mg Tbcr (Niacin (antihyperlipidemic)) ..... One tab. at bedtime Crestor 40 Mg Tabs (Rosuvastatin calcium) ..... One tab. daily Zetia 10 Mg Tabs (Ezetimibe) ..... Once daily BP today: 140/90 Prior BP: 122/82 (04/13/2011) Parveen Cruz MD Follow up: H is updated medication list for this problem includes: Metoprolol Tartrate 50 Mg Tabs (Metoprolol tartrate) ..... 1 tablet by mouth daily Aspirin 325 Mg Tabs (Aspirin) ..... 1 tablet by mouth daily BP today: 140/90 P rior BP: 122/82 (04/13/2011) Parveen Cruz MD Follow up: H is updated medication list for this problem includes: Niaspan 500 Mg Tbcr (Niacin (antihyperlipidemic)) ..... One tab. at bedtime Metoprolol Tartrate 50 Mg Tabs (Metoprolol tartrate) ..... 1 tablet by mouth daily Aspirin 325 Mg Tabs (Aspirin) ..... 1 tablet by mouth daily Crestor 40 Mg Tabs (Rosuvastatin calcium) ..... One tab. daily Zetia 10 Mg Tabs (Ezetimibe) ..... Once daily Nitrostat 0.4 Mg Subl (Nitroglycerin) Orders: E KG (CPT-[id number]) S tress Test - Nuclear ([id number]) BP today: 140/90 Prior BP: 122/82 (04/13/2011) N uclear Stress Findings: 1. Normal Richard protocol exercise tolerance test.Good functional capacity.Hypertensive response to exercise. 2 . Normal left ventricular size and function with a calculated ejection fraction of 57%. 3 . Myocardial scintigraphy is normal without evidence for previous myocardial infarction or reversible ischemia. CNE (04/18/2011) C ardiac Cath: EF - 60%. % LAD stenosis: 99% bifurcating lesion. (12/02/2003) C ardiac Cath Comments: Successful stenting of the LAD with a 3.0 x 12mm Taxus stent. (12/02/2003) Parveen Cruz MD follow up: H is updated medication list for this problem includes: Metoprolol Tartrate 50 Mg Tabs (Metoprolol tartrate) ..... 1 tablet by mouth twice daily Aspirin 325 Mg Tabs (Aspirin) ..... 1 tablet by mouth daily BP today: 122/82 P rior BP: 126/80 (04/12/2010) Parveen Cruz MD follow up: H is updated medication list for this problem includes: Niaspan 500 Mg Tbcr (Niacin (antihyperlipidemic)) ..... One tab. at bedtime Crestor 40 Mg Tabs (Rosuvastatin calcium) ..... One tab. daily Zetia 10 Mg Tabs (Ezetimibe) ..... Once daily BP today: 122/82 Prior BP: 126/80 (04/12/2010) Parveen Cruz MD follow up: T he following medications were removed from the medication list: Isosorbide Dinitrate 30 Mg Tabs (Isosorbide dinitrate) ..... One tab. daily His updated medication list for this problem includes: Niaspan 500 Mg Tbcr (Niacin (antihyperlipidemic)) ..... One tab. at bedtime Metoprolol Tartrate 50 Mg Tabs (Metoprolol tartrate) ..... 1 tablet by mouth twice daily Aspirin 325 Mg Tabs (Aspirin) ..... 1 tablet by mouth daily Crestor 40 Mg Tabs (Rosuvastatin calcium) ..... One tab. daily Zetia 10 Mg Tabs (Ezetimibe) ..... Once daily Nitrostat 0.4 Mg Subl (Nitroglycerin) Orders: E KG (CPT-[id number]) S tress Test - Nuclear ([id number]) BP today: 122/82 Prior BP: 126/80 (04/12/2010) N uclear Stress Findings: 1. Normal Richard protocol exercise tolerance test, hypertensive response . 2 . Normal left ventricular size and function with a calculated ejection fraction of 58%. 3 . Myocardial scintigraphy is normal without evidence for previous myocardial infarction or reversible ischemia. CNE (03/18/2010) C ardiac Cath: EF - 60%. % LAD stenosis: 99% bifurcating lesion. (12/02/2003) C ardiac Cath Comments: Successful stenting of the LAD with a 3.0 x 12mm Taxus stent. (12/02/2003) Parveen Cruz MD 1 month follow-up, t est results: H is updated medication list for this problem includes: Niaspan 500 Mg Tbcr (Niacin (antihyperlipidemic)) ..... One tab. at bedtime Crestor 40 Mg Tabs (Rosuvastatin calcium) ..... One tab. daily BP today: 126/80 Prior BP: 145/88 (03/08/2010) Parveen Cruz MD 1 month follow-up, t est results: H is updated medication list for this problem includes: Metoprolol Tartrate 50 Mg Tabs (Metoprolol tartrate) ..... 1 tablet by mouth twice daily Aspirin 325 Mg Tabs (Aspirin) ..... 1 tablet by mouth daily BP today: 126/80 P rior BP: 145/88 (03/08/2010) Parveen Cruz MD 1 month follow-up, t est results: H is updated medication list for this problem includes: Niaspan 500 Mg Tbcr (Niacin (antihyperlipidemic)) ..... One tab. at bedtime Metoprolol Tartrate 50 Mg Tabs (Metoprolol tartrate) ..... 1 tablet by mouth twice daily Aspirin 325 Mg Tabs (Aspirin) ..... 1 tablet by mouth daily Isosorbide Dinitrate 30 Mg Tabs (Isosorbide dinitrate) ..... One tab. daily Crestor 40 Mg Tabs (Rosuvastatin calcium) ..... One tab. daily BP today: 126/80 Prior BP: 145/88 (03/08/2010) N uclear Stress Findings: 1. Normal Richard protocol exercise tolerance test, hypertensive response . 2 . Normal left ventricular size and function with a calculated ejection fraction of 58%. 3 . Myocardial scintigraphy is normal without evidence for previous myocardial infarction or reversible ischemia. CNE (03/18/2010) C ardiac Cath: EF - 60%. % LAD stenosis: 99% bifurcating lesion. (12/02/2003) C ardiac Cath Comments: Successful stenting of the LAD with a 3.0 x 12mm Taxus stent. (12/02/2003) Parveen Cruz MD FOLLOW UP: H is updated medication list for this problem includes: Niaspan 500 Mg Tbcr (Niacin (antihyperlipidemic)) ..... One tab. at bedtime Crestor 40 Mg Tabs (Rosuvastatin calcium) ..... One tab. daily BP today: 145/88 Prior BP: / () Parveen Cruz MD FOLLOW UP: H is updated medication list for this problem includes: Aspirin 81 Mg Tabs (Aspirin) ..... One tab. daily Metoprolol Tartrate 50 Mg Tabs (Metoprolol tartrate) ..... Bid Orders: C omplete Echo (CPT-[id number]) BP today: 145/88 Parveen Cruz MD FOLLOW UP: H is updated medication list for this problem includes: Aspirin 81 Mg Tabs (Aspirin) ..... One tab. daily Metoprolol Tartrate 50 Mg Tabs (Metoprolol tartrate) ..... Bid Niaspan 500 Mg Tbcr (Niacin (antihyperlipidemic)) ..... One tab. at bedtime Crestor 40 Mg Tabs (Rosuvastatin calcium) ..... One tab. daily Isosorbide Dinitrate 30 Mg Tabs (Isosorbide dinitrate) ..... One tab. daily Orders: E KG ([id number]) S tress Test - Nuclear ([id number]) BP today: 145/88 Prior BP: / () N uclear Stress Findings: 1. Normal exercise capacity 2 . Normal hemodynamic response to exercise 3 [address] or T changes 4 . No significant arrhythmias 5 . There is no evidence for exercise-induced myocardial ischemia 6 . Resting BP = 124/63 Max BP = 218/71 % Max HR = 78 % METs = 12.8 7 . Normal left ventricular size and function with a calculated ejection fraction of 61%. 8 . Myocardial scintigraphy is normal without evidence for previous myocardial infarction or reversible ischemia. (11/08/2007) C ardiac Cath: EF - 60%. % LAD stenosis: 99% bifurcating lesion. (12/02/2003) C ardiac Cath Comments: Successful stenting of the LAD with a 3.0 x 12mm Taxus stent. (12/02/2003) Parveen Cruz MD FU: H is updated medication list for this problem includes: Vytorin 10-80 Mg Tabs (Ezetimibe-simvastatin) ..... One tab. at bedtime Niaspan 500 Mg Tbcr (Niacin (antihyperlipidemic)) ..... One tab. at bedtime Parveen Cruz MD FU: H is updated medication list for this problem includes: Aspirin 325 Mg Tabs (Aspirin) ..... Take one tablet by mouth every day Plavix 75 Mg Tabs (Clopidogrel bisulfate) ..... One tab. daily Metoprolol Tartrate 50 Mg Tabs (Metoprolol tartrate) ..... Bid Vytorin 10-80 Mg Tabs (Ezetimibe-simvastatin) ..... One tab. at bedtime Niaspan 500 Mg Tbcr (Niacin (antihyperlipidemic)) ..... One tab. at bedtime Imdur 30 Mg Tb24 (Isosorbide mononitrate) ..... One tab. daily Orders: S tress Test - Nuclear ([id number]) N uclear Stress Findings: EF - 65%. N o ischemic ST depressions noted during exercise. N o arrhythmias noted during exercise. G ood exercise capacity. N ormal myocardial perfusion without infarct/ischemia. (11/22/2006) E cho: EF - 60%. L VH. D ilated LV. M ildly enlarged left atrium at 4.39cm. T race mitral regurgitation. T race tricuspid regurgitation. (11/22/2006) C ardiac Cath: EF - 60%. % LAD stenosis: 99% bifurcating lesion. (12/02/2003) C ardiac Cath Comments: Successful stenting of the LAD with a 3.0 x 12mm Taxus stent. (12/02/2003) Parveen Cruz MD Date Name Monitor - Telemetry (Mobile Cardiac) Venous Doppler Bilat eral LE - Reflux Stress Exercise Card iolite Complete Echo LIPID PANEL COMPREHENSIVE METABO LIC PANEL, W/EGFR LIPID PANEL Complete Echo Stress Test - Nuclea r Stress Test - Nuclea r Complete Echo Stress Test - Nuclea r Renal Artery Duplex Complete Echo Stress Test - Nuclea r HISTORY OF PROCEDURES Procedure Date Procedure Name Provider Procedure Notes S tatus EKG Parveen Cruz MD complete d EKG Parveen Cruz MD complete d EKG Parveen Cruz MD complete d EKG Parveen Cruz MD complete d SNOMED-CT: [id number] Current Medications Documented Parveen Cruz MD completed EKG Parveen Cruz MD complete d EKG Patrick Stanley MD completed EKG Parveen Cruz MD complete d EKG Parveen Cruz MD complete d EKG Parveen Cruz MD complete d EKG Parveen Cruz MD complete d EKG Parveen Cruz MD complete d
[2024-06-05 09:17] LABS: Alanine Aminotransferase 24 U/L (16-63); Albumin Level 3.8 g/dL (3.4-5.0); Alkaline Phosphatase 74 U/L (46-116); Anion Gap 11 mmol/L (4-12); Aspartate Amino Transferase < 10 U/L (15-37); Bilirubin,Total 0.4 mg/dL (0.00-1.00); Blood Urea Nitrogen 16 mg/dL (7-18); Calcium 9.4 mg/dL (8.5-10.1); Carbon Dioxide 28 mmol/L (21-32); Chloride 105 mmol/L (98-108); Cholesterol 150 mg/dL (0-200); Estimated Glomerular Filt Rate > 60; Glucose 99 mg/dL (70-99); HDL Direct 49 mg/dL (40-60); LDL Cholesterol Calculated 75 mg/dL (<130); Osmolality Calculated 299 mOsm/kg (285-295); Potassium 4.9 mmol/L (3.5-5.1); Sodium 144 mmol/L (136-145); Triglycerides 131 mg/dL (0-150); Vitamin B12 846 pg/mL (193-986)
== END 2024-06-05 07:42 | disposition home or self-care (01) ==
LOC: CHSLAB 07:43
PROVIDERS: PCP Internal Medicine; Visit Provider Internal Medicine
DX: E78.00 Pure hypercholesterolemia, unspecified (principal); K21.9 Gastro-esophageal reflux disease without esophagitis
CPT/HCPCS: 36415; 80053; 80061; 82607; 83735

== ENCOUNTER 2024-06-27 14:40 | Outpatient (CLI) | payer OTHER, SELFPAY ==
--- OUTSIDE RECORDS SUMMARY | 2024-06-27 15:08 | XMS_ITS | Clinical Summary ---
Author Organization [facility] Address [address] [place] [address] Care Team Providers Care Face Hardener Name Role Phone Jewel Frances MD Primary Care Provider [phone] Source Comments [facility],non-owned Affiliates and Associated Physician Practices is amultiple site organization consisting of ambulatory clinics and hospital sitesin [place], [place], [place] and [place]. This disclosure is being madepursuant to the Care Everywhere program and may not contain all information available regarding this patient. Last updated 17.[facility] Allergies No known active allergies Medications * [...] Comments Blood Pressure 147/99 05/06/2018 12:53 PM BORING MACHINE OPERATOR HELPER Pulse 88 05/06/2018 12:53 PM BORING MACHINE OPERATOR HELPER Temperature 36.9 C (98.4 F) 05/06/2018 12:53 PM BORING MACHINE OPERATOR HELPER Respiratory Rate 16 05/06/2018 12:53 PM BORING MACHINE OPERATOR HELPER Oxygen Saturation 100% 05/06/2018 12:53 PM BORING MACHINE OPERATOR HELPER Inhaled Oxygen Concentration - - Weight 102.1 kg (225 lb) 05/06/2018 12:53 PM BORING MACHINE OPERATOR HELPER Height 182.9 cm (6') 05/06/2018 12:53 PM BORING MACHINE OPERATOR HELPER Body Mass Index 30.52 05/06/2018 12:53 PM BORING MACHINE OPERATOR HELPER Plan of Treatment Health Maintenance Due Date [...] to complete this topic MENINGOCOCCAL (Group B) VACC INE SHARED DECISION-MAKING Aged Out No longer eligibl e based on patient's age to complete this topic MENINGOCOCCAL GROUPS A/C/Y/W VACCINE Aged Out No longer eligible b ased on patient's age to complete this topic PNEUMOCOCCAL VACCINE Aged Out No long er eligible based on patient's age to complete this topic Care Teams Face Hardener Relationship Specialty Start Date End Date Jewel Frances MD [address] [place] [address] PCP - General Internal Medicine 05/06/18
--- OUTSIDE RECORDS SUMMARY | 2024-06-27 15:08 | XMS_ITS | Continuity of Care Document ---
Author Organization [facility] Address [address] [place] [address] Phone Care Team Providers Care Stem Lead Former Name Role Phone Chidi Harper MD Unavailable Unavailable Procedures Procedure Date Office/outpatient Visit, Est Office/outpatient Visit, Est Visual Field Examination(s) Eye Exam, New Patient Corneal Pachymetry Advance Directives Directive Yes / No Effective Date File Name No Information Encounters Encounter Description Practice Location Reason(s) For Visit Diagnoses Date Provider Providers Copied on Encounter Office/outpat ient Visit, Est [facility], [address] [place] [address] [address], [place], [place], [address], [place] tel:[phone] [facility] No Information [address] [place], [place], [address], [place]. tel:[phone] Office/outpat ient Visit, Est [facility], [address] [place] [address] [address], [place], [place], [address], [place] tel:[phone] [facility] No Information [address] [facility] [address], [place], [place], [address], [place]. tel:[phone] [facility], [address], [place], [place], [address], [place] tel:[phone] [facility] No Information [address] [place], [address], . tel:[phone] Referring Provider: Chidi Felipe, [address] [place], [address] . tel:[phone] [facility], [address], [place], [place], [address], tel:[phone] [facility] No Information [address] [facility] [place], [address], . tel:[phone] Referring Provider: Chidi Felipe, [address] [place], [address] . tel:[phone] Family History Family Member Type Diagnosis Age At Onset No Information Payers Payer name Insurance type Covered democrat ID Authoreloya melonie(s) Medicaid [place] BL [id number] Social History Type Description Quantity Date Captured [...]
--- OUTSIDE RECORDS SUMMARY | 2024-06-27 15:08 | XMS_ITS | CONTINUITY OF CARE DOCUMENT ---
Author Name dennise, dennise Address Unknown Organization [facility] Address [address] [place] [address] Phone [phone] Care Team Providers Care Belt Measurer Name Role Phone Nancy BYRD, Parveen Unavailable [phone] [place]OR[place] BYRD, LYNNE Unavailable LYNNE FRANCES MD Unavailable [phone] PROBLEMS Condition Status Date Provider Notes Hyperlipidemia active Parveen Cruz MD CHEST PAIN active Parveen Cruz MD Family History Coronary Hear t Disease male < 55: completed - Patrick Stanley MD Family History Coronary Hear t Disease male < 55: completed - Patrick Stanley MD Edema active Parveen Cruz MD Bradycardia active Lucoi Garcia DNP,SUPERVISOR SEWER MAINTENANCE ENCOUNTERS Date Type Provider Location Encounter Diag nosis - In-person encounter Office Visit Parveen Cruz MD [facility] Bradycardia - In-person encounter Office Visit Parveen Cruz MD [facility] - In-person encounter Office Visit Parveen Cruz MD [facility] Edema - In-person encounter Office Visit Parveen Cruz MD [facility] - In-person encounter Office Visit Parveen Cruz MD [facility] - In-person encounter Office Visit Parveen Cruz MD [facility] - In-person encounter Office Visit Parveen Cruz MD [facility] Hyperlipidemia - In-person encounter Office Visit Parveen Cruz MD [facility] - In-person encounter Office Visit Parveen Cruz MD [facility] - In-person encounter Office Visit Patrick Stanley MD [facility] Family History Coronary Heart Disease male < 55:Family History Coronary Heart Disease male < 55: - In-person encounter Office Visit Parveen Cruz MD [facility] - In-person encounter Office Visit Parveen Cruz MD [facility] CHEST PAIN - In-person encounter Office Visit Parveen Cruz MD [facility] - In-person encounter Office Visit Parveen Cruz MD [facility] - In-person encounter Office Visit Parveen Cruz MD [facility] - In-person encounter Office Visit Parveen Cruz MD [facility] - In-person encounter Office Visit Parveen Cruz MD [facility] VITAL SIGNS Date Observation Value Provider [...] blood pressure, diastolic 76 mm[Hg] Sherly shyam Henrandez blood pressure, systolic 154 mm[Hg] Any a [...] Lazoe hernan temperature site temporal [facility] temperature E&M 97.3 [degF] [facility] Body Mass Index (Ratio) 30.51 kg/m2 [...] Marylu Balderas oxygen saturation, oximetry 98 % Amrylu Balderas respiratory rate E&M 15 /min Marylu Balderas weight E&M 222 [lb_av] Marylu Balderas Body Mass Index (Ratio) 34.45 kg/m2 Ashl ee Skip blood pressure, diastolic 86 mm[Hg] As hlee Skip blood pressure, systolic 130 mm[Hg] Froilan carmela kSip pulse rate 76 /min Brandeerebel Valdivia oxygen [...] blood pressure, systolic 126 mm[Hg] Angel springer Stratford[employer] pulse rate 55 /min Bobby Stratfordaco oxygen saturation, oximetry 95 % Bobby Stratfordacopooja respiratory rate E&M 16 /min Bobby Stratfordac[place]ooja weight E&M 229 [lb_av] Bobby Saravananacopooja blood pressure, diastolic 88 mm[Hg] Br ittannadeline Pratima blood pressure, systolic 145 mm[Hg] Hillary ttachu Pratima pulse rate 97 /min Yoana Wolfed en oxygen saturation, oximetry 97 % Yoana Wolfeden respiratory rate E&M 16 /min Stone argueta Dodson weight E&M 254 [lb_av] Kimmyrimanirebel Wolfed en [...] Chamberlain MA weight E&M 213 [lb_av] Nanci Chamberlain MA ALLERGIES No Known Drug Allergies HISTORY [...] day Shira Kowalski ezetimibe 10 mg tablet active Take [...] TAKE 1 TABLET DAILY - Lucio Garcia DNP,SUPERVISOR SEWER MAINTENANCE [facility] 200 mg tablet completed 1 tablet [...] history of marijuana use no Lucio Garcia DNP,SUPERVISOR SEWER MAINTENANCE drug use no Lucio Garcia DN P,SUPERVISOR SEWER MAINTENANCE alcohol use no Lucio Garcia DN P,SUPERVISOR SEWER MAINTENANCE passive cigarette sm radha exposure no Lucio Garcia DNP,SUPERVISOR SEWER MAINTENANCE smoking status Never smoker Lucio Garcia DNP,SUPERVISOR SEWER MAINTENANCE drug use none Kristen David alcohol use [...] revi ewed - no changes required Parveen Crzu MD seatbelt usage 100 % Shira savage [...] Management Plan continue current therapy Lucio Garcia DNP,SUPERVISOR SEWER MAINTENANCE HRA, CV Assess/Plan, Angina (inactive) Management Plan [...] MD FAMILY HISTORY Family Member Condition Father ID male <55 Uncle Family History of Co ronary Artery Disease: Paternal Grandmother Family History of C oronary Artery Disease: Paternal Grandfather Family History Ann-Marie nary Heart Disease male < 55: Father Family History Coron dereje Heart Disease male < 55: INSURANCE PROVIDERS Payer name Policy type / Coverage type Cullen red alliance party ID [employer] Medicare [id number] [place] [employer] Medicaid [id number] ADVANCE DIRECTIVES Name Date DISCUSSED - NO DECISION MADE TREATMENT PLAN Date Name Performer [id number],S,B P fluctuates, but usually in normal range at home per patient. Parveen Cruz MD [id number],SParveen MD [id number],B, Parveen reich MD [id number],S, Parveen reich MD [id number],S,Add [employer]. Parveen Cruz MD [id number],W,D ietary indiscretion. Will check BP at home. Parveen Cruz MD [id number],C,R emains pain free and asymptomatic. Continue current [...] further assess the heart rate. Lucio Garcia DNP,[facility] Cardiology: S tress shows small inferior area with mild reperfusion, likely artifact or diaphragm. No chest pain or shortness of breath. [facility]:Blood pre ssure elvated in office. Last [...] once daily Aspirin 81 Mg Tablet,delayed Release (dr/ec) (Aspirin) ..... 1 tablet by mouth once a day Lucio [facility] Cardiology:Last LDL in 04/2023 was 87, trig 72. He reports repeat lipids were done in September. Dr. Frnaces office will fax over results. H is updated medication list for this problem includes: Atorvastatin 40 Mg Tablet (Atorvastatin) ..... Take 1 tablet by mouth every day Ezetimibe 10 Mg Tablet (Ezetimibe) ..... Take 1 tablet by mouth once a day Lucio Garcia DNP,[facility] Cardiology:No chest pain. Lucio Garcia DNP,[facility] Cardiology:No swelli ng today. L eft leg, intermittent. V enous doppler shows left leg GSV insufficiency. R ecommend compression stocking when necessary Lucio Garcia DNP,[facility] Cardiology Parveen Cruz MD Cardiology Parveen Cruz [...] tablet by mouth daily Orders: E KG (CPT-57258) Parveen Cruz MD follow up: B P [...] MD follow up: O rders: E KG (CPT-90378) BP today: 119/78 Prior BP: 140/90 (04/25/2012) [...] 0.4 Mg Subl (Nitroglycerin) Orders: E KG (CPT-87246) S tress Test - Nuclear (75731) BP today: 140/90 Prior BP: 122/82 (04/13/2011) [...] 0.4 Mg Subl (Nitroglycerin) Orders: E KG (CPT-23533) S tress Test - Nuclear ([id number]) BP today: 122/82 Prior BP: 126/80 (04/12/2010) [...] Mg Tabs (Metoprolol tartrate) ..... Bid Orders: Elisabeth lenzlete Echo (CPT-91033) BP today: 145/88 Parveen Cruz MD FOLLOW [...] ..... One tab. daily Orders: E KG (CPT-80802) S tress Test - Nuclear ([id number]) BP today: 145/88 Prior BP: / () [...] daily Orders: S tress Test - Nuclear (27063) N uclear Stress Findings: EF - 65%. [...] EKG Parveen Cruz MD complete d SNOMED-CT: [id number] Current Medications Documented Parveen Cruz MD completed EKG Parveen Cruz MD complete d EKG Patrick Stanley MD completed EKG Parveen Cruz MD complete d EKG Parveen Cruz MD complete d EKG Parveen Cruz MD complete d EKG Parveen Cruz MD complete d EKG Parveen Cruz MD complete d
--- OUTSIDE RECORDS SUMMARY | 2024-06-27 15:08 | XMS_ITS | Clinical Summary ---
Author Organization [facility] Address [facility] [place] [address] Care Team Providers Care Channeler Insole Name Role Phone Jewel Frances MD Primary Care Provider [phone] Allergies No known active allergies Medications atorvastatin [...] patient's age to complete this topic Insurance [employer] [place] Care Teams Channeler Insole Relationship Specialty Start Date End Date Jewel Frances MD [address] [address] PCP - General INTERNAL MEDICINE 06/28/18
--- OUTSIDE RECORDS SUMMARY | 2024-06-27 15:08 | XMS_ITS | Clinical Summary ---
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 Gender Identity Not on file Sexual [...] 2011 Zoster Immunization (1 of 2) 2011 Influenza Immunization (#1) 12/10/202301/09, 02/18/2014, 04/21/2013 SARS-COV-2 Immunization (2 - 2023- season) 2023 11/11/2020 Respiratory Syncytial Virus (RSV) Immunization (Adult) (1 - 1-dose 75+ series) 02/28/2036 Hepatitis B Immunization Aged Out No longer eligible based on patient's age to complete this topic Meningococcal Immunization (ACWY) Aged Out No longer eligible b ased on patient's age to complete this topic Rotavirus Immunization Aged Out No lo nger eligible based on patient's age to complete this topic Insurance [place]ICAID [place] Care Teams Service Writer Advisor Relationship Specialty Start Date End Date Jewel Frances MD [address] [address] PCP - General Internal Medicine 06/06/19
--- OUTSIDE RECORDS SUMMARY | 2024-06-27 15:08 | XMS_ITS | Data Portability ---
Author Organization [place] [facility], Main Office Address [address] [place] [address] Assessment No assessment recorded. Plan of Treatment Reminders Order Date Submit Date Provider Last Modified By Organization Details Last Modified Time Details Appointments None recorded. Lab magnesium , serum or plasma [address] (Lab), [address] [place] [address], [address], 5 17:29:30 vitamin B12, serum [address] (Lab), [address] [place] [address], [address], 5 17:29:30 lipid panel, serum [address] (Lab), [address] [place] [address], [address], 5 17:29:30 CMP, serum or plasma 025 025 [facility] (Lab), [address] [place] [address], [address], 5 13:36:27 PSA, serum or plasma [address] (Lab), [address] [place] [address], [address], 4 14:18:50 magnesium , serum or plasma [address] (Lab), [address] [place] [address], [address], 4 14:18:50 vitamin B12, serum [address] (Lab), [address] [place] [address] [address], [place], [address], 4 14:18:50 lipid panel, serum [address] (Lab), [address] [place] [address] [address], [place], [address], 4 14:18:49 CMP, serum or plasma [address] (Lab), [address] [place] [address] [address], [place], [address], 4 12:28:09 CBC w/ auto diff [address] (Lab), [address] [place] [address] [address], [place], [address], 4 14:18:49 TSH, serum or plasma [address] (Lab), [address] [place] [address] [address], [place], [address], 4 14:18:50 T4, free, serum [address] (Lab), [address] [place] [address] [address], [place], [address], 4 12:28:10 HbA1c (hemoglob in A1c), blood [address] (Lab), [address] [place] [address] [address], [place], [address], 4 16:34:06 lipid panel, serum 024 [facility] (Lab), [address] [place] [address] [address], [place], [address], 4 13:26:12 CMP, serum or plasma 024 [facility] (Lab), [address] [place] [address] [address], [place], [address], 4 13:26:17 TSH, serum or plasma 024 024 [facility] (Lab), [address] [place] [address] [address], [place], [address], 4 13:29:52 T4, free, serum 024 024 [facility] (Lab), [address] [place] [address] [address], [place], [address], 4 13:29:04 CBC w/ auto diff 024 024 [facility] (Lab), [address] [place] [address] [address], [place], [address], 4 12:42:08 PSA, serum or plasma [address] (Lab), [address] [place] [address] [address], [place], [address], 3 14:07:23 lipid panel, serum 023 023 [facility] (Lab), [address] [place] [address] [address], [place], [address], 3 12:41:42 CMP, serum or plasma 023 023 [facility] (Lab), [address] [place] [address] [address], [place], [address], 3 12:41:42 TSH, serum or plasma 023 023 [facility] (Lab), [address] [place] [address] [address], [place], [address], 3 12:41:42 T4, free, serum [address] (Lab), [address] [place] [address] [address], [place], [address], 3 14:07:23 CBC w/ auto diff 023 023 [email or web address] [facility] [address] [place] [address] [address], [place], [address], 3 14:07:23 Referral None recorded. Procedures None recorded. Surgeries None recorded. Imaging None recorded. Medication Orders None recorded. Patient TargetsNo targets recorded. Patient Instructions Encounter Date Encounter Id Patient Instructions Last Modified By Organization Details Last Modified Time 10/18/2022 [id number] Coronary artery disease stable-hyperlipide brenton -GERD -anxiety disorder. Check blood work consisting of CBC, CMP, lipid, thyroid, magnesium, B12 and PSA. Follow-up in six months Not available 10/18/2022 15:13:32 04/14/2023 [id number] CAD -hyperlipidemia -hyperglycemia. Will check blood work [...] recognize, using context, where substitutions have occurred. [email or web address] Not available 04/14/2023 12:36:27 11/09/2023 [id number] Follow-up edwards ry artery disease, hyperlipidemia, GERD [...] recognize, using context, where substitutions have occurred. [email or web address] Not available 11/09/2023 14:57:06 06/04/2024 [id number] Follow-up edwards ry artery disease, hyperlipidemia, anxiety [...] Created: Jewel Frances M.D. 06.04.2024 10:34 AM [email or web address] Not available 06/04/2024 11:34:50 Reason for Referral None Reported. Results Created Date Observation Date Name Description Value Unit Range Abnormal Flag Note LastModifiedBy Organization Detail LastModifiedTime 04/18/1904/18/2023 CBC/C OMPLE TE BLD COUNT W/DIF F white blood cells 6.2 x10'3 /uL 4.2-10 .8 Not Available [facility] (Lab) [address] [place], [address], 04/18/2023 12:42:08 04/18/19 24 04/18/2023 CBC/C OMPLE TE BLD COUNT W/DIF F red blood cells 4.94 x10'6 /uL 4.10-5 .80 Not Available [facility] (Lab) [address] [place], [address], 04/18/2023 12:42:08 04/18/19 24 04/18/2023 CBC/C OMPLE TE BLD COUNT W/DIF F hemoglobin 14.2 g/dL 13.2-1 7.0 Not Available [facility] (Lab) [address] [place], [address], 04/18/2023 12:42:08 04/18/1904/18/2023 CBC/C OMPLE TE BLD COUNT W/DIF F hematocrit 44.5 % 39.3-5 0.0 Not Available [facility] (Lab) [address] [place], [address], 04/18/2023 12:42:08 04/18/19 24 04/18/2023 CBC/C OMPLE TE BLD COUNT W/DIF F mean red cell volume 90.1 fL 80.0-9 7.0 Not Available [facility] (Lab) [address] [facility] [place], [address], 04/18/2023 12:42:08 04/18/19 24 04/18/2023 CBC/C OMPLE TE BLD COUNT W/DIF F mean red cell hemoglobin 28.7 pg 27.0-3 3.0 Not Available [facility] (Lab) [address] [place], [address], 04/18/2023 12:42:08 04/18/19 24 04/18/2023 CBC/C OMPLE TE BLD COUNT W/DIF F mean RBC HGB concentratio n 31.9 g/dL 31.0-3 6.0 Not Available [facility] (Lab) [address] [place], [address], 04/18/2023 12:42:08 04/18/19 24 04/18/2023 CBC/C OMPLE TE BLD COUNT W/DIF F red cell distribution width 14.4 % 11.8-1 5.5 Not Available [facility] (Lab) [address] [place], [address], 04/18/2023 12:42:08 04/18/19 24 04/18/2023 CBC/C OMPLE TE BLD COUNT W/DIF F platelets 216 x10'3 /uL 150-40 0 Not Available [facility] (Lab) [address] [place], [address], 04/18/2023 12:42:08 04/18/19 24 04/18/2023 CBC/C OMPLE TE BLD COUNT W/DIF F mean platelet volume 10.4 fL 9.0-12 .4 Not Available [facility] (Lab) [address] [place], [address], 04/18/2023 12:42:08 04/18/19 24 04/18/2023 CBC/C OMPLE TE BLD COUNT W/DIF F neutrophils 59.0 % 39.0-7 2.0 Not Available [facility] (Lab) [address] [place], [address], 04/18/2023 12:42:08 04/18/19 24 04/18/2023 CBC/C OMPLE TE BLD COUNT W/DIF F lymphocytes 27.3 % 16.0-4 7.0 Not Available [facility] (Lab) [address] [place], [address], 04/18/2023 12:42:08 04/18/19 24 04/18/2023 CBC/C OMPLE TE BLD COUNT W/DIF F monocytes 10.1 % 5.0-12 .0 Not Available [facility] (Lab) [address] [place], [address], 04/18/2023 12:42:08 04/18/19 24 04/18/2023 CBC/C OMPLE TE BLD COUNT W/DIF F eosinophils 2.6 % 1.0-7. 0 Not Available [facility] (Lab) [address] [place], [address], 04/18/2023 12:42:08 04/18/19 24 04/18/2023 CBC/C OMPLE TE BLD COUNT W/DIF F basophils 0.5 % 0.0-2. 0 Not Available [facility] (Lab) [address] [place], [address], 04/18/2023 12:42:08 04/18/1904/18/2023 CBC/C OMPLE TE BLD COUNT W/DIF F immature granulocytes 0.5 % 0.00-0 .50 Not Available [facility] (Lab) [address] [place], [address], 04/18/2023 12:42:08 04/18/19 24 04/18/2023 CBC/C OMPLE TE BLD COUNT W/DIF F neutrophils, absolute count 3.67 x10'3 /uL 1.5-8. 0 Not Available [facility] (Lab) [address] [place], [address], 04/18/2023 12:42:08 04/18/19 24 04/18/2023 CBC/C OMPLE TE BLD COUNT W/DIF F lymphocytes, absolute count 1.70 x10'3 /uL 1.07-3 .43 Not Available [facility] (Lab) [address] [place], [address], 04/18/2023 12:42:08 04/18/19 24 04/18/2023 CBC/C OMPLE TE BLD COUNT W/DIF F monocytes, absolute count 0.63 x10'3 /uL 0.29-0 .99 Not Available [facility] (Lab) [address] [place], [address], 04/18/2023 12:42:08 04/18/19 24 04/18/2023 CBC/C OMPLE TE BLD COUNT W/DIF F eosinophils, absolute count 0.16 x10'3 /uL 0.02-0 .53 Not Available [facility] (Lab) [address] [place], [address], 04/18/2023 12:42:08 04/18/19 24 04/18/2023 CBC/C OMPLE TE BLD COUNT W/DIF F basophils, absolute count 0.03 x10'3 /uL 0.01-0 .08 Not Available [facility] (Lab) [address] [place], [address], 04/18/2023 12:42:08 04/18/19 24 04/18/2023 CBC/C OMPLE TE BLD COUNT W/DIF F immature granulocytes ,absolute 0.03 x10'3 /uL 0.00-0 .05 Not Available [facility] (Lab) [address] [place], [address], 04/18/2023 12:42:08 04/18/19 24 04/18/2023 CBC/C OMPLE TE BLD COUNT W/DIF F nucleated red blood cells 0.0 % -0 Not Available [facility] (Lab) [address] [place], [address], 04/18/2023 12:42:08 04/18/19 24 04/18/2023 CBC/C OMPLE TE BLD COUNT W/DIF F NRBC# 0.00 x10'3 /uL Not Available [facility] (Lab) [address] [place], [address], 04/18/2023 12:42:08 04/18/19 24 04/18/2023 LIPID PANEL cholesterol 149 mg/dL 140-19 9 NIH BRIANA NSUS RECOM MENDA TION FOR WILDER STERO L: ADULT CHILD LOW RISK: <200 <170 BORDE RLINE : <200- 239 ----- HIGH RISK: >240 >200 Not Available [facility] (Lab) [address] [place], [address], 04/18/2023 13:26:12 04/18/19 24 04/18/2023 LIPID PANEL triglyceride s 72 mg/dL 0-150 NIH BRIANA NSUS REPOR T RECOM MENDA TION FOR TRIGL YCERI CLARICE: ADULT CHILD LOW RISK: <150 ----- BODER LINE: 150-1 99 ----- HIGH RISK: >200 ----- Not Available [facility] (Lab) [address] [place], [address], 04/18/2023 13:26:12 04/18/19 24 04/18/2023 LIPID PANEL HDL cholesterol 48 mg/dL 40- Not Available [facility] (Lab) [address] [place], [address], 04/18/2023 13:26:12 04/18/19 24 04/18/2023 LIPID PANEL [...] WILL NOT BE REPOR RIA. Not Available [facility] (Lab) [address] [place], [address], 04/18/2023 13:26:12 04/18/19 24 04/18/2023 COMPR EHENS [place] METAB OLIC PANEL sodium 137 mmol/ L 137-14 5 Not Available [facility] (Lab) [address] [place], [address], 04/18/2023 13:26:17 04/18/19 24 04/18/2023 COMPR EHENS [place] METAB OLIC PANEL potassium 5.0 mmol/ L 3.5-5. 1 Not Available [facility] (Lab) [address] [place], [address], 04/18/2023 13:26:17 04/18/19 24 04/18/2023 COMPR EHENS [place] METAB OLIC PANEL chloride 104 mmol/ L 98-107 Not Available [facility] (Lab) [address] [place], [address], 04/18/2023 13:26:17 04/18/19 24 04/18/2023 COMPR EHENS [place] METAB OLIC PANEL carbon dioxide 28 mmol/ L 22-30 Not Available [facility] (Lab) [address] [place], [address], 04/18/2023 13:26:17 04/18/19 24 04/18/2023 COMPR EHENS [place] METAB OLIC PANEL anion gap 10.0 mmol/ L 14-22 low Not Available [facility] (Lab) [address] [place], [address], 04/18/2023 13:26:17 04/18/19 24 04/18/2023 COMPR EHENS [place] METAB OLIC PANEL glucose 102 mg/dL 70-99 high Not Available [facility] (Lab) [address] [place], [address], 04/18/2023 13:26:17 04/18/19 24 04/18/2023 COMPR EHENS [place] METAB OLIC PANEL BUN 16 mg/dL 8-19 Not Available [facility] (Lab) [address] [place], [address], 04/18/2023 13:26:17 04/18/19 24 04/18/2023 COMPR EHENS [place] METAB OLIC PANEL creatinine 0.87 mg/dL 0.66-1 .25 Not Available [facility] (Lab) [address] [place], [address], 04/18/2023 13:26:17 04/18/19 24 04/18/2023 COMPR EHENS [place] METAB OLIC PANEL GFR >60 Refer ence Range : [place] ge GFR Healt hy Adult : >60 [...] calcu lator is avail able on the [facility] websi te: https ://ww w.kid homar.o rg/pr ofess ional s/kdo qi/gf r_cal culat or Not Available [facility] (Lab) [address] [place], [address], 04/18/2023 13:26:17 04/18/19 24 04/18/2023 COMPR EHENS [place] METAB OLIC PANEL alkaline phosphatase 50 U/L 38-126 Not Available [facility] (Lab) [address] [place], [address], 04/18/2023 13:26:17 04/18/19 24 04/18/2023 COMPR EHENS [place] METAB OLIC PANEL alanine aminotransfe rase 26 U/L 0-50 Not Available [facility] (Lab) [address] [place], [address], 04/18/2023 13:26:17 04/18/19 24 04/18/2023 COMPR EHENS [place] METAB OLIC PANEL aspartate aminotransfe rase 21 U/L 15-46 Not Available [facility] (Lab) [address] [place], [address], 04/18/2023 13:26:17 04/18/19 24 04/18/2023 COMPR EHENS [place] METAB OLIC PANEL bilirubin, total 0.30 mg/dL 0.20-1 .30 Not Available [facility] (Lab) [address] [place], [address], 04/18/2023 13:26:17 04/18/19 24 04/18/2023 COMPR EHENS [place] METAB OLIC PANEL calcium 9.6 mg/dL 8.4-10 .2 Not Available [facility] (Lab) [address] [place], [address], 04/18/2023 13:26:17 04/18/19 24 04/18/2023 COMPR EHENS [place] METAB OLIC PANEL total protein 6.4 g/dL 6.3-8. 2 Not Available [facility] (Lab) [address] [place], [address], 04/18/2023 13:26:17 04/18/19 24 04/18/2023 COMPR EHENS [place] METAB OLIC PANEL albumin 3.6 g/dL 3.4-5. 0 Not Available [facility] (Lab) [address] [place], [address], 04/18/2023 13:26:17 04/18/19 24 04/18/2023 COMPR EHENS [place] METAB OLIC PANEL globulin 2.8 g/dL 2.6-4. 2 Not Available [facility] (Lab) [address] [place], [address], 04/18/2023 13:26:17 04/18/19 24 04/18/2023 COMPR EHENS [place] METAB OLIC PANEL A/G ratio 1.3 ratio 1.0-2. 0 Not Available [facility] (Lab) [address] [place], [address], 04/18/2023 13:26:17 04/18/19 24 04/18/2023 T4 FREE free T4 0.89 NG/dL 0.78-2 .19 Not Available [facility] (Lab) [address] [place], [address], 04/18/2023 13:29:04 04/18/19 24 04/18/2023 TSH thyroid-stim ulating hormone 1.320 uIU/m L 0.465- 4.680 Not Available [facility] (Lab) [address] [place], [address], 04/18/2023 13:29:52 04/18/19 24 04/18/2023 HEMOG LOBIN A1C HA1C 5.9 % 4.0-6. 0 Diabe rona Nivia Little celestine: <5.7% Consi stent with absen ce of diabe rona 5.7-6 .4% Consi stent with incre ased risk for diabe rona (pred iabet es) >OR=6 .5% Consi stent with diabe rona REFER ENCE: Diabe rona Care 2016, 39(Mathur ppl.1 ):s13 -s22 Not Available [facility] ([facility]) [address], [place], [address], 04/18/2023 21:04:03 04/01/20 23 04/01/2023 XR, chest , 2 view No observ ation record ed. [email or web address] [place] [address] [address], [place], [address], 04/04/2023 12:14:07 05/05/19 24 05/04/2023 US, echoc ardio gram No observ ation record ed. [address] [facility] [address], [place], [address], 05/05/2023 14:41:24 05/05/19 24 05/04/2023 US, doppl er, venou s No observ ation record ed. [address] [facility] [address], [place], [address], 05/05/2023 14:43:29 05/24/19 24 05/24/2023 pharm acolo gic nucle ar stres s test No observ ation record ed. [address] [facility] [address], [place], [address], 05/25/2023 07:10:43 08/05/19 24 08/05/2023 XR, chest , 2 view No observ ation record ed. [address] [place], [address], 08/06/2023 09:05:32 08/06/19 24 08/05/2023 XR, chest , 2 view No observ ation record ed. [address] [place], [address], 08/07/2023 06:48:18 08/30/19 24 08/30/2023 XR, chest , 2 view No observ ation record ed. [place] [address] [place], [address], 08/31/2023 07:45:26 08/31/19 24 08/30/2023 XR, chest , 2 view No observ ation record ed. [email or web address] [address] [place] [address], [address], 08/31/2023 13:46:09 01/26/20 24 01/26/2024 XR, wrist No observ ation record ed. [address] [place], [address], 01/26/2024 18:00:58 01/26/20 24 01/26/2024 XR, hand No observ ation record ed. [address] [place], [address], 01/28/2024 20:53:09 05/30/19 25 05/30/2024 XR, chest , 2 view No observ ation record ed. [place] [address] [place], [address], 05/30/2024 14:33:35 05/30/19 25 05/30/2024 XR, chest , 2 view No observ ation record ed. [address] [place], [address], 05/30/2024 15:12:26 Result Notes None recorded. Problems Name Problem SNOMED Code Status Onset Date Resolution Date Notes Provider Name and Address Organization Details Recorded Time Hyperchole sterolemia 53075684 Active Not Available [facility] 3 15:58:44 Epiploic appendagit is 3435481005412 9109 Active 2016 Not Available [facility] 3 15:58:44 Acute sinusitis 86286800 Active 2021 Not Available [facility] 3 15:58:44 Cataract 018765112 Active Not Available [facility] 3 15:58:44 Fracture of metacarpal bone 080012586 Active 2021 Not Available [facility] 3 15:58:44 Fracture of metacarpal bone 223927438 Active 2021 Not Available [facility] 3 15:58:44 Glaucoma 67855565 Active Not Available [facility] 3 15:58:44 Disorder of prostate 62490512 Active 2022 Not Available [facility] 3 15:58:44 Obesity 843198480 Active 2022 Not Available [facility] 3 15:58:44 Painless rectal bleeding 608976891 Active 2021 Not Available [facility] 3 15:58:44 Anxiety 71814589 Active Not Available [facility] 3 15:58:44 Coronary arterioscl erosis 12554029 Active Not Available [facility] 3 15:58:44 Cervical radiculopa thy 73753943 Active 2021 Not Available [facility] 3 15:58:44 COVID-19 553229477 Active 2021 Not Available [facility] 3 15:58:45 Erectile dysfunctio n 197562339 Active 2021 Not Available [facility] 3 15:58:45 Closed fracture of metacarpal bone 835418682 Active 2022 Elmira Nino RMA null, [place] [facility] 3 10:33:23 Carpal tunnel syndrome of right wrist 9378151385136 08 Active 2022 Roshan Mendez MD [address], [place], [address] , [place] [facility] 3 13:08:08 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 2022 Roshan Mendez MD [address], [address], [place], [address] , [place] [facility] 3 13:08:17 Gastroesop hageal reflux disease 212550937 Active 2022 Jewel Frances MD [address], [address], [place], [address] , [place] [facility] 3 15:08:42 Wheezing 79462264 Active 2022 Holly Chavez CMA null, [place] [facility] 3 10:10:49 Acute bronchitis 82555837 Active 2022 Jewel Frances MD [address], [address], [place], [address] , [place] [facility] 3 10:36:02 Hyperglyce brenton 42459290 Active 2023 Jewel Frances MD [address], [address], [place], [address] , [place] [facility] 4 12:31:45 Pharyngiti s 109098394 Active 2023 Jewel Frances MD [address], [address], [place], [address] , [place] [facility] 4 11:55:55 Cough 73670433 Active 2023 Holly Chavez CMA null, [place] [facility] 4 15:52:13 Fatigue 46758334 Active 2024 Holly Chavez CMA null, [place] [facility] 15:08:09 Problem Notes None recorded. Procedures Surgical History Date Name Laterality Status Provider Name and Address Organization Details Recorded Time Knee completed AGAPITO Jara [place] [facility] 08/02/2022 08:59:09 Imaging Results Imaging Date Name Status LastModified by Organization Details LastModified Time 04/01/2023 XR, chest, 2 view completed [address] [facility] [address], [place], [address], 04/04/2023 12:14:07 05/04/2023 US, echocardiogram completed [address] [facility] [address], [place], [address], 05/05/2023 14:41:24 05/04/2023 US, doppler, venous completed [address] [facility] [address], [place], [address], 05/05/2023 14:43:29 05/24/2023 pharmacologic nuclear stress test completed [address] [facility] [address], [place], [address], 05/25/2023 07:10:43 08/05/2023 XR, chest, 2 view completed [address] [place], [address], 08/06/2023 09:05:32 08/05/2023 XR, chest, 2 view completed [address] [place], [address], 08/07/2023 06:48:18 08/30/2023 XR, chest, 2 view completed [address] [place], [address], 08/31/2023 07:45:26 08/30/2023 XR, chest, 2 view completed [email or web address] [place] [address] (Imaging) [address] [place], [address], 08/31/2023 13:46:09 01/26/2024 XR, wrist completed [address] [place], [address], 01/26/2024 18:00:58 01/26/2024 XR, hand completed [place] [address] [place], [address], 01/28/2024 20:53:09 05/30/2024 XR, chest, 2 view completed [place] [address] [place], [address], 05/30/2024 14:33:35 05/30/2024 XR, chest, 2 view completed [place] [address] [place], [address], 05/30/2024 15:12:26 Procedure Notes None recorded. Medical [...] administe red by the provider 05/20 completed [facility]: [id number] Not Available Not [...] Not Available Not Available No t Available [employer]asis 0.05 % eye drops in a dropperette INSTILL 1 DROP INTO BOTH EYES TWICE DAILY active Not Available Not Available [...] Updated DateTime 3 182.88 cm 30.2 kg/m2 650713. 1 g 77 /min 97 [degF] 97 % 97 % 134 mm[Hg] 72 mm[Hg] Xin Almanza [facility] [employer] 3 14:50:19 Date Recorded Body height Body mass index (BMI) Body weight Body temperature Heart rate Oxygen saturation Oxygen saturation in Arterial blood by Pulse oximetry Systolic blood pressure Diastolic blood pressure Provider Name and Address Organization Details Last Updated DateTime 4 182.88 cm 29.2 kg/m2 20527.3 6 g 97.8 [degF] 62 /min 98 % 98 % 126 mm[Hg] 80 mm[Hg] Laurie Kebede MA [facility] [employer] [facility] 4 12:01:31 Date Recorded Body height Body mass index (BMI) Body weight Heart rate Body temperature Oxygen saturation Oxygen saturation in Arterial blood by Pulse oximetry Systolic blood pressure Diastolic blood pressure Provider Name and Address Organization Details Last Updated DateTime 4 182.88 cm 29.3 kg/m2 80705.9 5 g 68 /min 97 [degF] 98 % 98 % 122 mm[Hg] 70 mm[Hg] [facility] 4 11:24:07 Date Recorded Body height Body mass index (BMI) Body weight Heart rate Body temperature Oxygen saturation Oxygen saturation in Arterial blood by Pulse oximetry Systolic blood pressure Diastolic blood pressure Provider Name and Address Organization Details Last Updated DateTime 4 182.88 cm 28.3 kg/m2 79804.8 1 g 57 /min 97.8 [degF] 98 % 98 % 110 mm[Hg] 70 mm[Hg] AGAPITO Mosley [facility] [employer] [facility] 4 14:26:01 Date Recorded Body height Body mass index (BMI) Body weight Heart rate Body temperature Oxygen saturation Oxygen saturation in Arterial blood by Pulse oximetry Systolic blood pressure Diastolic blood pressure Provider Name and Address Organization Details Last Updated DateTime 5 182.88 cm 29.2 kg/m2 99185.3 6 g 50 /min 97 [degF] 97 % 97 % 122 mm[Hg] 84 mm[Hg] Xin Almanza [facility] [employer] [facility] 5 11:05:56 Social History Question Answer Notes LastModified by Organizat ion Details LastModified Time Tobacco Smoking Status Never Smoker Not Available [facility] 06/08/2022 15:57:24 Do You Have An Advance Directive? No [id number] Information not available 06/08/2022 What Is Your Level Of Alcohol Consumption? None [id number] Information not available 06/08/2022 In The 14 Days Before Symptom Onset, Have You Had Close Contact With A Laboratory-confir med COVID-19 While That Case Was Ill? No [id number] Information not available 06/08/2022 In The 14 Days Before Symptom Onset, Have You Had Close Contact With A Person Who Is Under Investigation For COVID-19 While That Person Was Ill? No MIGRATION.[id number] Information not available 06/08/2022 What Type Of Diet Are You Following? REGULAR MIGRATION.70150 45521 Information not available 06/08/2022 Have There Been Any Changes To Your Family Or Social Situation? No MIGRATION.65375 44235 Information not available 06/08/2022 What Is The Fluoride Status Of Your Home? Unknown MIGRATION.69708 90666 Information not available 06/08/2022 Do You Use Insect Repellent Routinely? No MIGRATION.98345 65022 Information not available 06/08/2022 Where Do You Live? [place]House MIGRATION.76457 00114 Information not available 06/08/2022 Do You Have A Medical Power Of Nurse Care Manager? No MIGRATION.88625 85639 Information not available 06/08/2022 What Was The Date Of Your Most Recent Tobacco Screening? 05/20/2022 MIGRATION.18802 21985 Information not available 06/08/2022 Do You Have Any Pets? Yes MIGRATION.03660 93108 Information not available 06/08/2022 What Is Your Relationship Status? MIGRATION.12093 74478 Information not available 06/08/2022 Do You Use Your Seat Belt Or Car Seat Routinely? Yes MIGRATION.78239 90540 Information not available 06/08/2022 Do You Have Smoke And Carbon Monoxide Detectors In Your Home? Yes MIGRATION.12653 01275 Information not available 06/08/2022 Are You Passively Exposed To Smoke? No MIGRATION.82034 33602 Information not available 06/08/2022 Are There Any Smokers In Your House? No MIGRATION.53082 71111 Information not available 06/08/2022 Do You Use Sunscreen Routinely? Yes MIGRATION.15678 73600 Information not available 06/08/2022 Have You Recently Traveled Abroad? No MIGRATION.18949 92359 Information not available 06/08/2022 Do You Have Any Dietary Restrictions? No MIGRATION.73545 59711 Information not available 06/08/2022 Sex: Unknown Functional Status Question Answer Note LastModified by Organizat ion Details LastModified Time What is your exercise level? Moderate MIGRATION.[id number] Information not available 06/08/2022 Mental Status None recorded. Family History Relationship Description Onset Age of this Age Resolved Age Notes LastModified by Organization Details LastModified Time Brother Family history of malignant neoplasm MIGRATION.880 [id number] Not available 06/08/2022 15:57:26 Sister Diabetes mellitus MIGRATION.106 [id number] Not available 06/08/2022 15:57:26 Father Heart disease MIGRATION.757 [id number] Not available 06/08/2022 15:57:26 Father Hypertensive disorder MIGRATION.252 [id number] Not available 06/08/2022 15:57:27 Son Kidney disease MIGRATION.836 [id number] Not available 06/08/2022 15:57:27 Notes:Mother 61 fro [...] influenza, unspecified formulation 3 completed Holly Chavez [employer] null, [facility] 05/08/2023 09:48:34 influenza, unspecified formulation 4 completed Kyara Guo RMA null, [facility] 02/13/2024 16:39:11 Pneumococcal conjugate PCV20, polysaccharide MAD317 conjugate, adjuvant, PF 4 completed AGAPITO Mosley null, [facility] 02/13/2024 16:42:00 zoster recombinant 4 completed AGAPITO Mosley null, [facility] 02/13/2024 16:42:38 Influenza, split virus, trivalent, preservative 4 completed Not Available [facility] 06/08/2022 15:59:51 Influenza, split virus, trivalent, preservative 4 completed Not Available [facility] 06/08/2022 15:59:52 COVID-19 Non-US Vaccine, Product Unknown 1 completed Not Available [facility] 06/08/2022 15:59:52 Influenza, adjuvanted, trivalent, PF 2 completed Not Available [facility] 06/08/2022 15:59:52 Influenza, split virus, quadrivalent, preservative 1 completed Not Available [facility] 06/08/2022 15:59:52 Influenza, split virus, quadrivalent, preservative 9 completed Not Available [facility] 06/08/2022 15:59:52 Influenza, split virus, quadrivalent, PF 8 completed Not Available [facility] 06/08/2022 15:59:52 Influenza, split virus, quadrivalent, preservative 7 completed Not Available [facility] 06/08/2022 15:59:52 Influenza, split virus, quadrivalent, preservative 5 completed Not Available [facility] 06/08/2022 15:59:52 Influenza, split virus, quadrivalent, PF 6 completed Not Available [facility] 06/08/2022 15:59:52 Past Encounters Encounter ID Performer Location Encounter Start Date Encounter Closed Date Diagnosis/Indication Diagnosis SNOMED-CT Code Diagnosis ICD10 Code Diagnosis Note [id number] [facility] [place] [address] [place] [address] 07/13/2020 00:00:00 07/14/2020 09:29:55 [id number] [facility] [address] [place] [address] [place] [address] 10/06/2020 00:00:00 10/06/2020 11:30:20 [id number] [facility] [address] [place] [address] [place] [address] 04/06/2021 00:00:00 04/06/2021 15:19:51 [id number] [facility] [address] [place] [address] [place] [address] 07/13/2021 00:00:00 07/13/2021 16:15:12 [id number] [facility] [place] [address] [place] [address] 07/30/2021 00:00:00 07/30/2021 10:54:43 [id number] [facility] [place] [address] [place] [address] 08/17/2021 00:00:00 08/17/2021 13:29:42 [id number] [facility] [place] [address] [place] [address] 08/31/2021 00:00:00 08/31/2021 12:29:11 [id number] [facility] [place] [address] [place] [address] 11/16/2021 00:00:00 11/16/2021 12:50:44 [id number] [facility] Internal Med [place] [facility] [address] [facility] [place] [address] 05/20/2022 00:00:00 05/20/2022 14:41:45 [id number] Roshan Mendez MD [facility] [place] 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 We will see him back in a few months for follow-up [id number] Roshan Mendez MD [facility] [place] 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 038295331 G56.21 [id number] Jewel Frances MD [facility] Internal [facility] [place] [address] [place] [address] [place] [address] 10/18/2022 14:24:23 10/18/2022 15:16:40 Coronary arteriosclerosis 42878886 I25.10 Hypercholesterolemia 136 27817 E78.00 Gastroesop hageal reflux disease 175683133 K21.9 Anxiety 40485418 F41.9 Disorder of prostate 302 07262 N42.9 [id number] Jewel Frances MD [facility] Internal Med [place] [address] [place] [address] [place] [address] 04/14/2023 11:36:01 04/14/2023 12:39:21 Coronary arteriosclerosis 28844336 I25.10 Hypercholesterolemia 136 48325 E78.00 Hyperglycemia 00393349 R 73.9 [id number] Jewel Frances MD [facility] Internal Med [place] [address] [place] [address] [place] [address] 04/21/2023 11:06:23 04/21/2023 11:50:27 [id number] Jewel Frances MD [facility] [place] [address] 11/09/2023 14:14:23 11/09/2023 15:01:04 Coronary arteriosclerosis 53080001 I25.10 Hypercholesterolemia 136 56623 E78.00 Gastroesop hageal reflux disease 369428757 K21.9 Anxiety 82230692 F41.9 Disorder of prostate 302 22093 N42.9 [id number] Jewel Frances MD [facility] [place] [facility] [address] [facility] [address] [place] [address] 06/04/2024 10:40:49 06/04/2024 11:43:16 Coronary arteriosclerosis 79353870 I25.10 Hypercholesterolemia 136 84066 E78.00 Gastroesop hageal reflux disease 401851006 K21.9 Anxiety 28955645 F41.9 Health Concerns Section Related Observation LastModified by Organization Detai ls LastModified Time None Recorded Concern Status LastModified by Organization Details LastModified Time None Recorded Advance Directives Directive N: Payers Encounter Date Sequence Insurance Name Policy Number Policy Acosta Covered Member ID Acosta Member ID Guarantor Name 10/18/2022 1 [employer] [facility] [place] [employer] (MEDICARE - MEDICAID REPLACEMENT HMO) [id number] Vinay Dilcia [id number] Vinay Dilcia 04/14/2023 1 [employer] [place] [place]MEDICARE - MEDICAID REPLACEMENT HMO) [id number] Vinay Heber [id number] Vinay Heber 04/21/2023 1 [employer] [place] [place]MEDICARE - MEDICAID REPLACEMENT HMO) [id number] Vinay Heber [id number] Vinay Heber 11/09/2023 1 [employer] [place] [place]MEDICARE - MEDICAID REPLACEMENT HMO) [id number] Vinay Dilcia [id number] Vinay Dilcia 06/04/2024 1 [employer] [place] [place]MEDICARE - MEDICAID REPLACEMENT HMO) [id number] Vinay Heber [id number] Vinay Heber Notes Date Note Type Note Provider Name [...] 5% (CREAM - TOPICAL) As DirectedVaccination and Hwcqfpwildut3136-78 Xxonxdlrq6410-55 Covid PfizerSurgical HistoryBilateral Eye Surgery for Glaucoma, Left Cataract, Coronary Stent LADPreventative Testing Confirmed by Our Jvvulmk0204/28/2021 ALBUMIN 4.3 G/DL04/28/2021 PSA 0.43 NG/ML11/25/2016 COLONOSCOPY (10 YEARS) 11/25/2026Social 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 not 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 HistoryMother 61 from complications of back surgeryFather 74 from CAD and PneumoniaOne brother living with laryngeal CA and CADTwo sisters living one DM and CAD(2) Jewel Frances MD [address] [place] [address], [facility], [place], [address], [facility] M.dot 10/18/2022 15:15:35 4 text/html Patient Name: Vinay [...] 5% (CREAM - TOPICAL) As DirectedVaccination and Zbnqfcizwzpx6533-86 Gwvammlhh6314-54 Covid PfizerSurgical HistoryBilateral Eye Surgery for Glaucoma, Left Cataract, Coronary Stent LADPreventative Testing Confirmed by Our Vlzsavn8010/21/2022 PSA04/28/2021 ALBUMIN 4.3 G/DL N011/25/2016 COLONOSCOPY (10 YEARS) 11/25/2026Social HistoryDoes not 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 [id number]: Echocardiogram estimated ejection fraction 60%. 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 Qstyselxmxl55-15-1618: Echocardiogram estimated ejection fraction 60%. 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
[2024-06-27 15:47] LABS: Alanine Aminotransferase 24 U/L (16-63); Albumin Level 4.2 g/dL (3.4-5.0); Alkaline Phosphatase 79 U/L (46-116); Anion Gap 8 mmol/L (4-12); Aspartate Amino Transferase 12 U/L (15-37); Bilirubin,Total 0.9 mg/dL (0.00-1.00); Blood Urea Nitrogen 19 mg/dL (7-18); Calcium 9.5 mg/dL (8.5-10.1); Carbon Dioxide 29 mmol/L (21-32); Chloride 104 mmol/L (98-108); Estimated Glomerular Filt Rate > 60; Glucose 84 mg/dL (70-99); Osmolality Calculated 293 mOsm/kg (285-295); Sodium 141 mmol/L (136-145); Total Protein 7.6 g/dL (6.4-8.2)
== END 2024-06-27 14:41 | disposition home or self-care (01) ==
LOC: CHSLAB 14:42
PROVIDERS: PCP Internal Medicine; Visit Provider Internal Medicine
DX: R53.83 Other fatigue (principal)
CPT/HCPCS: 36415; 80053

== ENCOUNTER 2024-09-05 15:14 | Outpatient (CLI) | payer OTHER, SELFPAY ==
--- OUTSIDE RECORDS SUMMARY | 2024-09-05 15:20 | XMS_ITS | Data Portability ---
Author Organization [place] [facility], Main Office Address [address] [place] [address] Assessment No assessment recorded. Plan of Treatment Reminders Order Date Submit Date Provider Last Modified By Organization Details Last Modified Time Details Appointments None recorded. Lab magnesium , serum or plasma [address] (Lab), [address] [place] [address], [address], 5 17:29:30 vitamin B12, serum [address] (Lab), [address] [place] [address], [address], 5 17:29:30 lipid panel, serum [address] (Lab), [address] [place] [address], [address], 5 17:29:30 CMP, serum or plasma 025 025 [facility] (Lab), [address] [place] [address], [address], 5 13:36:27 PSA, serum or plasma [address] (Lab), [address] [place] [address], [address], 4 14:18:50 magnesium , serum or plasma [address] (Lab), [address] [place] [address], [address], 4 14:18:50 vitamin B12, serum [address] (Lab), [address] [place] [address] [address], [place], [address], 4 14:18:50 lipid panel, serum [address] (Lab), [address] [place] [address] [address], [place], [address], 4 14:18:49 CMP, serum or plasma [address] (Lab), [address] [place] [address] [address], [place], [address], 4 12:28:09 CBC w/ auto diff [address] (Lab), [address] [place] [address] [address], [place], [address], 4 14:18:49 TSH, serum or plasma [address] (Lab), [address] [place] [address] [address], [place], [address], 4 14:18:50 T4, free, serum [address] (Lab), [address] [place] [address] [address], [place], [address], 4 12:28:10 HbA1c (hemoglob in A1c), blood [address] (Lab), [address] [place] [address] [address], [place], [address], 4 16:34:06 lipid panel, serum 024 [facility] (Lab), [address] [place] [address] [address], [place], [address], 4 13:26:12 CMP, serum or plasma 024 [facility] (Lab), [address] [facility] [address], [place], [address], 4 13:26:17 TSH, serum or plasma [facility] (Lab), [address] [facility] [address], [place], [address], 4 13:29:52 T4, free, serum 024 [facility] (Lab), [facility] [address], [place], [address], 4 13:29:04 CBC w/ auto diff 024 [facility] (Lab), [facility] [address], [place], [address], 4 12:42:08 Referral None recorded. Procedures None recorded. Surgeries None recorded. Imaging None recorded. Medication Orders None recorded. Patient TargetsNo targets recorded. Patient Instructions Encounter Date Encounter Id Patient Instructions Last Modified By Organization Details Last Modified Time 04/14/2023 [id number] CAD -hyperlipide brenton -hyperglycemia. Will check blood work consisting of [...] recognize, using context, where substitutions have occurred. [email or web address] Not available 04/14/2023 12:36:27 11/09/2023 [id number] Follow-up edwards ry artery disease, hyperlipidemia, GERD [...] recognize, using context, where substitutions have occurred. [email or web address] Not available 11/09/2023 14:57:06 06/04/2024 [id number] Follow-up edwards ry artery disease, hyperlipidemia, anxiety [...] Created: Jewel Frances M.D. 06.04.2024 10:34 AM [email or web address] Not available 06/04/2024 11:34:50 08/20/2024 [id number] Chronic supraclavicular sternal junction abnormalities. Obtain radiographic studies. Additional Orders - Directives - Recommendations 1. X-ray of the left sternal clavicular junction Keep Appointment: Mon 10:00 AM [place] Portions of record are template driven. When necessary additional context will be provided. Additionally some portions have been created with voice recognition software. Occasional wrong-word or s ound-a-like substitutions may have occurred due to the inherent limitations of voice recognition software. Read the chart carefully and recognize, using context, where substitutions may have occurred. Created: Jewel Frances M.D. 08.20.2024 03:31 PM [email or web address] Not available 08/20/2024 16:31:45 Reason for Referral None Reported. Results Created Date Observation Date Name Description Value Unit Range Abnormal Flag Note LastModifiedBy Organization Detail LastModifiedTime 04/18/19 24 04/18/2023 CBC/C OMPLE TE BLD COUNT W/DIF F white blood cells 6.2 x10'3 /uL 4.2-10 .8 Not Available [facility] (Lab) [address] [place], [address], 04/18/2023 12:42:08 04/18/19 24 04/18/2023 CBC/C OMPLE TE BLD COUNT W/DIF F red blood cells 4.94 x10'6 /uL 4.10-5 .80 Not Available [facility] (Lab) [address] [place], [address], 04/18/2023 12:42:08 04/18/19 24 04/18/2023 CBC/C OMPLE TE BLD COUNT W/DIF F hemoglobin 14.2 g/dL 13.2-1 7.0 Not Available [facility] (Lab) [address] [place], [address], 04/18/2023 12:42:08 04/18/19 24 04/18/2023 CBC/C OMPLE TE BLD COUNT W/DIF F hematocrit 44.5 % 39.3-5 0.0 Not Available [facility] (Lab) [address] [place], [address], 04/18/2023 12:42:08 04/18/19 24 04/18/2023 CBC/C OMPLE TE BLD COUNT W/DIF F mean red cell volume 90.1 fL 80.0-9 7.0 Not Available [facility] (Lab) [address] [place], [address], 04/18/2023 12:42:08 04/18/19 24 04/18/2023 CBC/C OMPLE TE BLD COUNT W/DIF F mean red cell hemoglobin 28.7 pg 27.0-3 3.0 Not Available [facility] (Lab) [address] [place], [address], 04/18/2023 12:42:08 04/18/19 24 04/18/2023 CBC/C OMPLE TE BLD COUNT W/DIF F mean RBC HGB concentratio n 31.9 g/dL 31.0-3 6.0 Not Available [facility] (Lab) [address] [place], [address], 04/18/2023 12:42:08 04/18/19 24 04/18/2023 CBC/C OMPLE TE BLD COUNT W/DIF F red cell distribution width 14.4 % 11.8-1 5.5 Not Available [facility] (Lab) [address] [place], [address], 04/18/2023 12:42:08 04/18/19 24 04/18/2023 CBC/C OMPLE TE BLD COUNT W/DIF F platelets 216 x10'3 /uL 150-40 0 Not Available [facility] (Lab) [address] [place], [address], 04/18/2023 12:42:08 04/18/19 24 04/18/2023 CBC/C OMPLE TE BLD COUNT W/DIF F mean platelet volume 10.4 fL 9.0-12 .4 Not Available [facility] (Lab) [address] [place], [address], 04/18/2023 12:42:08 04/18/19 24 04/18/2023 CBC/C OMPLE TE BLD COUNT W/DIF F neutrophils 59.0 % 39.0-7 2.0 Not Available [facility] (Lab) [address] [place], [address], 04/18/2023 12:42:08 04/18/19 24 04/18/2023 CBC/C OMPLE TE BLD COUNT W/DIF F lymphocytes 27.3 % 16.0-4 7.0 Not Available [facility] (Lab) [address] [place], [address], 04/18/2023 12:42:08 04/18/1904/18/2023 CBC/C OMPLE TE BLD COUNT W/DIF F monocytes 10.1 % 5.0-12 .0 Not Available [facility] (Lab) [address] [place], [address], 04/18/2023 12:42:08 04/18/19 24 04/18/2023 CBC/C OMPLE TE BLD COUNT W/DIF F eosinophils 2.6 % 1.0-7. 0 Not Available [facility] (Lab) [address] [place], [address], 04/18/2023 12:42:08 04/18/19 24 04/18/2023 CBC/C OMPLE TE BLD COUNT W/DIF F basophils 0.5 % 0.0-2. 0 Not Available [facility] (Lab) [address] [place], [address], 04/18/2023 12:42:08 04/18/19 24 04/18/2023 CBC/C OMPLE TE BLD COUNT W/DIF F immature granulocytes 0.5 % 0.00-0 .50 Not Available [facility] (Lab) [address] [place], [address], 04/18/2023 12:42:08 04/18/19 24 04/18/2023 CBC/C OMPLE TE BLD COUNT W/DIF F neutrophils, absolute count 3.67 x10'3 /uL 1.5-8. 0 Not Available [facility] (Lab) [address] [place], [address], 04/18/2023 12:42:08 04/18/19 24 04/18/2023 CBC/C OMPLE TE BLD COUNT W/DIF F lymphocytes, absolute count 1.70 x10'3 /uL 1.07-3 .43 Not Available [facility] (Lab) [address] [place], [address], 04/18/2023 12:42:08 04/18/19 24 04/18/2023 CBC/C OMPLE TE BLD COUNT W/DIF F monocytes, absolute count 0.63 x10'3 /uL 0.29-0 .99 Not Available [facility] (Lab) [address] [place], [address], 04/18/2023 12:42:08 04/18/19 24 04/18/2023 CBC/C OMPLE TE BLD COUNT W/DIF F eosinophils, absolute count 0.16 x10'3 /uL 0.02-0 .53 Not Available [facility] (Lab) [address] [place], [address], 04/18/2023 12:42:08 04/18/19 24 04/18/2023 CBC/C OMPLE TE BLD COUNT W/DIF F basophils, absolute count 0.03 x10'3 /uL 0.01-0 .08 Not Available [facility] (Lab) [address] [place], [address], 04/18/2023 12:42:08 04/18/19 24 04/18/2023 CBC/C OMPLE TE BLD COUNT W/DIF F immature granulocytes ,absolute 0.03 x10'3 /uL 0.00-0 .05 Not Available [facility] (Lab) [address] [place], [address], 04/18/2023 12:42:08 04/18/1904/18/2023 CBC/C OMPLE TE BLD COUNT W/DIF F nucleated red blood cells 0.0 % -0 Not Available [facility] (Lab) [address] [place], [address], 04/18/2023 12:42:08 04/18/19 24 04/18/2023 CBC/C OMPLE TE BLD COUNT W/DIF F NRBC# 0.00 x10'3 /uL Not Available [facility] (Lab) [address] [place], [address], 04/18/2023 12:42:08 04/18/19 24 04/18/2023 LIPID PANEL cholesterol 149 mg/dL 140-19 9 NIH BRIANA NSUS RECOM MENDA TION FOR WILDER STERO L: ADULT CHILD LOW RISK: <200 <170 BORDE RLINE : <200- 239 ----- HIGH RISK: >240 >200 Not Available [facility] (Lab) [address] [place], [address], 04/18/2023 13:26:12 04/18/19 24 04/18/2023 LIPID PANEL triglyceride s 72 mg/dL 0-150 NIH BRIANA NSUS REPOR T RECOM MENDA TION FOR TRIGL YCERI CLARICE: ADULT CHILD LOW RISK: <150 ----- BODER LINE: 150-1 99 ----- HIGH RISK: >200 ----- Not Available [facility] (Lab) [address] [place], [address], 04/18/2023 13:26:12 04/18/19 24 04/18/2023 LIPID PANEL HDL cholesterol 48 mg/dL 40- Not Available [facility] (Lab) [address] [place], [address], 04/18/2023 13:26:12 04/18/19 24 04/18/2023 LIPID PANEL [...] WILL NOT BE REPOR RIA. Not Available [facility] (Lab) [address] [place], [address], 04/18/2023 13:26:12 04/18/1904/18/2023 COMPR EHENS [place] METAB OLIC PANEL sodium 137 mmol/ L 137-14 5 Not Available [facility] (Lab) [address] [place], [address], 04/18/2023 13:26:17 04/18/19 24 04/18/2023 COMPR EHENS [place] METAB OLIC PANEL potassium 5.0 mmol/ L 3.5-5. 1 Not Available [facility] (Lab) [address] [place], [address], 04/18/2023 13:26:17 04/18/19 24 04/18/2023 COMPR EHENS [place] METAB OLIC PANEL chloride 104 mmol/ L 98-107 Not Available [facility] (Lab) [address] [place], [address], 04/18/2023 13:26:17 04/18/19 24 04/18/2023 COMPR EHENS [place] METAB OLIC PANEL carbon dioxide 28 mmol/ L 22-30 Not Available [facility] (Lab) [address] [place], [address], 04/18/2023 13:26:17 04/18/19 24 04/18/2023 COMPR EHENS [place] METAB OLIC PANEL anion gap 10.0 mmol/ L 14-22 low Not Available [facility] (Lab) [address] [place], [address], 04/18/2023 13:26:17 04/18/19 24 04/18/2023 COMPR EHENS [place] METAB OLIC PANEL glucose 102 mg/dL 70-99 high Not Available [facility] (Lab) [address] [place], [address], 04/18/2023 13:26:17 04/18/19 24 04/18/2023 COMPR EHENS [place] METAB OLIC PANEL BUN 16 mg/dL 8-19 Not Available [facility] (Lab) [address] [place], [address], 04/18/2023 13:26:17 04/18/19 24 04/18/2023 COMPR EHENS [place] METAB OLIC PANEL creatinine 0.87 mg/dL 0.66-1 .25 Not Available [facility] (Lab) [address] [place], [address], 04/18/2023 13:26:17 04/18/19 24 04/18/2023 COMPR EHENS [place] METAB OLIC PANEL GFR >60 Refer ence Range : Jolo ge GFR Healt hy Adult : >60 [...] or ethni c subgr oups, such as Hisomero nics. Outsi de the valid ated dioni [...] calcu lator is avail able on the [facility] websi te: https ://braden paz.eric graf.o rg/pr ofess ional s/kdo qi/gf r_cal culat or Not Available [facility] (Lab) [address] [place], [address], 04/18/2023 13:26:17 04/18/19 24 04/18/2023 COMPR EHENS [place] METAB OLIC PANEL alkaline phosphatase 50 U/L 38-126 Not Available [facility] (Lab) [address] [place], [address], 04/18/2023 13:26:17 04/18/19 24 04/18/2023 COMPR EHENS [place] METAB OLIC PANEL alanine aminotransfe rase 26 U/L 0-50 Not Available [facility] (Lab) [address] [place], [address], 04/18/2023 13:26:17 04/18/19 24 04/18/2023 COMPR EHENS [place] METAB OLIC PANEL aspartate aminotransfe rase 21 U/L 15-46 Not Available [facility] (Lab) [address] [place], [address], 04/18/2023 13:26:17 04/18/19 24 04/18/2023 COMPR EHENS [place] METAB OLIC PANEL bilirubin, total 0.30 mg/dL 0.20-1 .30 Not Available [facility] (Lab) [address] [place], [address], 04/18/2023 13:26:17 04/18/19 24 04/18/2023 COMPR EHENS [place] METAB OLIC PANEL calcium 9.6 mg/dL 8.4-10 .2 Not Available [facility] (Lab) [address] [place], [address], 04/18/2023 13:26:17 04/18/19 24 04/18/2023 COMPR EHENS [place] METAB OLIC PANEL total protein 6.4 g/dL 6.3-8. 2 Not Available [facility] (Lab) [address] [place], [address], 04/18/2023 13:26:17 04/18/19 24 04/18/2023 COMPR EHENS [place] METAB OLIC PANEL albumin 3.6 g/dL 3.4-5. 0 Not Available [facility] (Lab) [address] [place], [address], 04/18/2023 13:26:17 04/18/19 24 04/18/2023 COMPR EHENS [place] METAB OLIC PANEL globulin 2.8 g/dL 2.6-4. 2 Not Available [facility] (Lab) [address] [place], [address], 04/18/2023 13:26:17 04/18/19 24 04/18/2023 COMPR EHENS [place] METAB OLIC PANEL A/G ratio 1.3 ratio 1.0-2. 0 Not Available [facility] (Lab) [address] [place], [address], 04/18/2023 13:26:17 04/18/19 24 04/18/2023 T4 FREE free T4 0.89 NG/dL 0.78-2 .19 Not Available [facility] (Lab) [address] [place], [address], 04/18/2023 13:29:04 04/18/19 24 04/18/2023 TSH thyroid-stim ulating hormone 1.320 uIU/m L 0.465- 4.680 Not Available [facility] (Lab) [address] [place], [address], 04/18/2023 13:29:52 04/18/19 24 04/18/2023 HEMOG LOBIN A1C HA1C 5.9 % 4.0-6. 0 Diabe rona Scree edith Crite celestine: <5.7% Consi stent with absen ce of diabe rona 5.7-6 .4% Consi stent with incre ased risk for diabe rona (pred iabet es) >OR=6 .5% Consi stent with diabe rona REFER ENCE: Diabe rona Care 2016, 39(Mathur ppl.1 ):s13 -s22 Not Available [facility] (Lab) [address] [place], [address], 04/18/2023 21:04:03 04/01/20 23 04/01/2023 XR, chest , 2 view No observ ation record ed. [email or web address] [place] [address] [address], [place], [address], 04/04/2023 12:14:07 05/05/19 24 05/04/2023 US, echoc ardio gram No observ ation record ed. [address] [facility] [address], [place], [address], 05/05/2023 14:41:24 05/05/19 24 05/04/2023 US, doppl er, venou s No observ ation record ed. [address] [facility] [address], [place], [address], 05/05/2023 14:43:29 05/24/19 24 05/24/2023 pharm acolo gic nucle ar stres s test No observ ation record ed. [address] [facility] [address], [place], [address], 05/25/2023 07:10:43 08/05/19 24 08/05/2023 XR, chest , 2 view No observ ation record ed. [address] [place], [address], 08/06/2023 09:05:32 08/06/19 24 08/05/2023 XR, chest , 2 view No observ ation record ed. [address] [place], [address], 08/07/2023 06:48:18 08/30/19 24 08/30/2023 XR, chest , 2 view No observ ation record ed. [address] [place], [address], 08/31/2023 07:45:26 08/31/19 24 08/30/2023 XR, chest , 2 view No observ ation record ed. [email or web address] [facility] ([facility] [address] [place] [address], [address], 08/31/2023 13:46:09 10/18/20 24 01/26/2024 XR, wrist No observ ation record ed. [address] [place], [address], 01/26/2024 18:00:58 01/26/20 24 01/26/2024 XR, hand No observ ation record ed. [address] [place], [address], 01/28/2024 20:53:09 05/30/19 25 05/30/2024 XR, chest , 2 view No observ ation record ed. [address] [place], [address], 05/30/2024 14:33:35 05/30/19 25 05/30/2024 XR, chest , 2 view No observ ation record ed. [address] [place], [address], 05/30/2024 15:12:26 08/21/19 25 08/20/2024 XR, [place] [place] [facility] [address] [place], [place] [id number] Patien t Name: VINAY HA Access ion #: [id number] Sex: M : 1959 0 Locati on: RAD Attend ing Physic pushpa: FARIDA FRANCES CE Orderi ng Physic pushpa: FARIDA FRANCES CE Exam Date: 025 3:54 PM Exam Name: XR CLAVIC LE LT Admitt ing Diagno sis(es ): RADIOL OGY REPORT - FINAL EXAM: XR CLAVIC LE LT HISTOR Y: pain 64-yea r-old male with left clavic ular pain, no known injury . COMPAR MARGARITO: None availa ble. TECHNI QUE: Two views of the left clavic le were perfor med. FINDIN GS: See below. IMPRES KORIN: 1. No eviden ce of left clavic ular fractu re or acromi oclavi cular separa tion. 2. Mild acromi oclavi cular hypert rophy withou t signif icant loss of subacr omial space. Page 1 of 2 [facility] Patien t Name: VINAY HA Access ion #: [id number] Sex: M : 1959 0 Exam Date: 3:54 PM Exam Name: XR CLAVIC LE LT Admitt ing Diagno sis(es ): Create d and electr onical ly signed by: Isra luque MD Signed Date: 5:10 PM (CT) Dictat ed by: Isra luque MD DD: 5:10 PM (CT) DT: 5:10 PM (CT) Page 2 of [address] (Imaging) [address] [place], [address], 08/21/2024 06:47:54 Result Notes None recorded. Problems Name Problem SNOMED Code Status Onset Date Resolution Date Notes Provider Name and Address Organization Details Recorded Time Hyperchole sterolemia 18818332 Active Not Available [facility] 3 15:58:44 Epiploic appendagit is 4397451463389 9109 Active 2016 Not Available [facility] 3 15:58:44 Acute sinusitis 55213629 Active 2021 Not Available [facility] 3 15:58:44 Cataract 862405728 Active Not Available [facility] 3 15:58:44 Fracture of metacarpal bone 079560541 Active 2021 Not Available [facility] 3 15:58:44 Fracture of metacarpal bone 225633549 Active 2021 Not Available [facility] 3 15:58:44 Glaucoma 13300795 Active Not Available [facility] 3 15:58:44 Disorder of prostate 97861948 Active 2022 Not Available [facility] 3 15:58:44 Obesity 923060605 Active 2022 Not Available [facility] 3 15:58:44 Painless rectal bleeding 954850739 Active 2021 Not Available [facility] 3 15:58:44 Anxiety 75530295 Active Not Available [facility] 3 15:58:44 Coronary arterioscl erosis 24077986 Active Not Available [facility] 3 15:58:44 Cervical radiculopa thy 28622166 Active 2021 Not Available [facility] 3 15:58:44 COVID-19 949314073 Active 2021 Not Available [facility] 3 15:58:45 Erectile dysfunctio n 592453025 Active 2021 Not Available [facility] 3 15:58:45 Closed fracture of metacarpal bone 012857104 Active 2022 AGAPITO [place], [place] [facility] 3 10:33:23 Carpal tunnel syndrome of right wrist 4936947038608 08 Active 2022 Roshan Mendez MD [address], [place] [address], [place], [address] , [facility] 3 13:08:08 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 Active 2022 Roshan Mendez MD [address], [facility] [address], [place], [address] , [facility] 3 13:08:17 Gastroesop hageal reflux disease 300950715 Active 2022 Jewel Frances MD [address], [facility] [address], [place], [address] , [facility] 3 15:08:42 Wheezing 85540387 Active 2022 Holly Chavez CMA null, [place] [facility] 3 10:10:49 Acute bronchitis 48823523 Active 2022 Jewel Frances MD [address], [place], [address] , [place] [facility] 3 10:36:02 Hyperglyce brenton 62930578 Active 2023 Jewel Frances MD [address], [address], [place], [address] , [facility] 4 12:31:45 Pharyngiti s 515100138 Active 2023 Jewel Frances MD [address], [place], [address] , [place] [facility] 4 11:55:55 Cough 68934071 Active 2023 PACHECO Sneed, [place] [facility] 4 15:52:13 Fatigue 16454925 Active 2024 Holly Chavez CMA null, [place] [facility] 5 15:08:09 Pain of sternum 276990703 Active 2024 Jewel Frances MD [address], [place], [address] , [facility] 5 16:31:12 Chest wall pain 338297697 Active 2024 Xin Almanza null, [place] [facility] 5 16:34:52 Clavicle pain 952804468 Active 2024 Xin Grimma null, [place] [facility] 5 16:35:12 Mass of neck 398644217 Active 2024 Holly Chavez CMA null, [place] [facility] 5 17:02:51 Pain of left shoulder joint 8417150420081 9109 Active 2024 Holly Chavez CMA null, [place] [facility] 5 17:04:12 Wm hematuria 762172087 Active 2024 Holly Chavez CMA null, [place] [facility] 15:02:43 Problem Notes None recorded. Procedures Surgical History Date Name Laterality Status Provider Name and Address Organization Details Recorded Time Knee completed Johnny BarbozasleyAGAPITO [facility] [employer] [facility] 08/02/2022 08:59:09 Imaging Results None recorded. Procedure [...] Not Available Not Available No t Available Tylenol-Cod eine #4 300 mg-60 mg tablet [...] t Available azithromyci n 250 mg tablet TAKE 2 TABLETS BY MOUTH ONCE ON DAY 1 THEN TAKE 1 TABLET BY MOUTH EVERY DAY FOR DAYS 2 THROUGH 5 08/20 completed Not Available Not Available Not Available aspirin 325 mg tablet Take 1 tablet every day by oral route. 2013 active Not Available Not Available Not Avai lable benzonatate 200 mg capsule Take 1 capsule 3 times a day by oral route. 08/20 completed Not Available Not Available Not Available [...] administe red by the provider 05/20 completed [facility]: 0003- [id number]- 20 Not Available [...] completed Not Available Not Available Not Available pantoprazol e 40 mg tablet,bozena yed release TAKE 1 TABLET BY MOUTH EVERY DAY 2024 active Not Available Not Available Not Avai lable trazodone 150 mg tablet TAKE 1 TABLET [...] hr TAKE 1 TABLET BY MOUTH DAILY 08/20 completed Not Available Not Available Not Available methylpredn isolone 4 mg tablets in a dose pack FOLLOW PACKAGE DIRECTION S 04/21 completed Not Available Not Available Not Available albuterol sulfate HFA 90 mcg/actuati on aerosol inhaler INHALE 2 PUFFS BY MOUTH EVERY 4 HOURS 2024 active Not Available Not Available Not Avai lable cefdinir 300 mg capsule TAKE 1 CAPSULE [...] Updated DateTime 4 182.88 cm 29.2 kg/m2 64741.3 6 g 97.8 [degF] 62 /min 98 % 98 % 126 mm[Hg] 80 mm[Hg] Laurie Kebede MA [facility] 4 12:01:31 Date Recorded Body height Body mass index (BMI) Body weight Heart rate Body temperature Oxygen saturation Oxygen saturation in Arterial blood by Pulse oximetry Systolic blood pressure Diastolic blood pressure Provider Name and Address Organization Details Last Updated DateTime 4 182.88 cm 29.3 kg/m2 88584.9 5 g 68 /min 97 [degF] 98 % 98 % 122 mm[Hg] 70 mm[Hg] Xin Almanza [facility] 4 11:24:07 Date Recorded Body height Body mass index (BMI) Body weight Heart rate Body temperature Oxygen saturation Oxygen saturation in Arterial blood by Pulse oximetry Systolic blood pressure Diastolic blood pressure Provider Name and Address Organization Details Last Updated DateTime 5 182.88 cm 29.2 kg/m2 51412.3 6 g 50 /min 97 [degF] 97 % 97 % 122 mm[Hg] 84 mm[Hg] Xin Almanza [facility] 5 11:05:56 Date Recorded Body height Body mass index (BMI) Body weight Heart rate Body temperature Oxygen saturation Oxygen saturation in Arterial blood by Pulse oximetry Systolic blood pressure Diastolic blood pressure Provider Name and Address Organization Details Last Updated DateTime 5 182.88 cm 30.1 kg/m2 050569. 51 g 76 /min 97 [degF] 98 % 98 % 138 mm[Hg] 80 mm[Hg] Xin Almanza [facility] 5 16:26:11 Date Recorded Body height Body mass index (BMI) Body weight Heart rate Body temperature Oxygen saturation Oxygen saturation in Arterial blood by Pulse oximetry Systolic blood pressure Diastolic blood pressure Provider Name and Address Organization Details Last Updated DateTime 4 182.88 cm 28.3 kg/m2 44547.8 1 g 57 /min 97.8 [degF] 98 % 98 % 110 mm[Hg] 70 mm[Hg] AGAPITO Mosley [place] [employer] [facility] 4 14:26:01 Social History Question Answer Notes LastModified by Organizat ion Details LastModified Time Tobacco Smoking Status Never Smoker Not Available [employer] 06/08/2022 15:57:24 Do You Have An Advance Directive? No [id number] Information not available 06/08/2022 In The 14 Days Before Symptom Onset, Have You Had Close Contact With A Laboratory-confir med COVID-19 While That Case Was Ill? No MIGRATION.45024 58322 Information not available 06/08/2022 In The 14 Days Before Symptom Onset, Have You Had Close Contact With A Person Who Is Under Investigation For COVID-19 While That Person Was Ill? No MIGRATION.37768 07714 Information not available 06/08/2022 What Type Of Diet Are You Following? REGULAR MIGRATION.79257 27864 Information not available 06/08/2022 Have There Been Any Changes To Your Family Or Social Situation? No MIGRATION.44196 06687 Information not available 06/08/2022 What Is The Fluoride Status Of Your Home? Unknown MIGRATION.06853 44017 Information not available 06/08/2022 Do You Use Insect Repellent Routinely? No MIGRATION.94957 17408 Information not available 06/08/2022 Where Do You Live? [place]House MIGRATION.72044 30471 Information not available 06/08/2022 Do You Have A Medical Power Of Supervisor [employer]? No MIGRATION.13258 75476 Information not available 06/08/2022 What Was The Date Of Your Most Recent Tobacco Screening? 05/20/2022 MIGRATION.03519 15450 Information not available 06/08/2022 Do You Have Any Pets? Yes MIGRATION.36466 19231 Information not available 06/08/2022 What Is Your Relationship Status? MIGRATION.97433 34185 Information not available 06/08/2022 Do You Use Your Seat Belt Or Car Seat Routinely? Yes MIGRATION.84174 86496 Information not available 06/08/2022 Do You Have Smoke And Carbon Monoxide Detectors In Your Home? Yes MIGRATION.21432 19166 Information not available 06/08/2022 Are You Passively Exposed To Smoke? No MIGRATION.19509 24388 Information not available 06/08/2022 Are There Any Smokers In Your House? No MIGRATION.33098 36918 Information not available 06/08/2022 Do You Use Sunscreen Routinely? Yes MIGRATION.82639 68143 Information not available 06/08/2022 Have You Recently Traveled Abroad? No MIGRATION.50824 95593 Information not available 06/08/2022 Do You Have Any Dietary Restrictions? No MIGRATION.36823 41481 Information not available 06/08/2022 Sex: Unknown Functional Status Question Answer Note LastModified by Organizat ion Details LastModified Time What is your level of alcohol consumption? None [id number] Information not available 06/08/2022 What is your exercise level? Moderate MIGRATION.[id number] 6 Information not available 06/08/2022 Mental Status None recorded. Family History Relationship Description Onset Age of this Age Resolved Age Notes LastModified by Organization Details LastModified Time Brother Family history of malignant neoplasm MIGRATION.650 [id number] Not available 06/08/2022 15:57:26 Sister Diabetes mellitus MIGRATION.619 [id number] Not available 06/08/2022 15:57:26 Father Heart disease MIGRATION.999 [id number] Not available 06/08/2022 15:57:26 Father Hypertensive disorder MIGRATION.878 [id number] Not available 06/08/2022 15:57:27 Son Kidney disease MIGRATION.512 [id number] Not available 06/08/2022 15:57:27 Notes:Mother 61 fro [...] DISEASE/DISORDER N HISTORY OF DRUG ABUSE N COPD N RADIATION / CHEMOTHERAPY N Other # 2 N BLOOD DISEASES [...] HAVE YOU BEEN HOSPITALIZED OR SEEN IN [facility] IN THE PAST YEAR ? N [...] formulation 3 completed Holly Chavez CMA null, [place] [employer] [facility] 05/08/2023 09:48:34 influenza, unspecified formulation 4 completed AGAPITO Mosley, [facility] 02/13/2024 16:39:11 Pneumococcal conjugate PCV20, polysaccharide [id number] conjugate, adjuvant, PF 4 completed AGAPITO Mosley, [facility] 02/13/2024 16:42:00 zoster recombinant 4 completed AGAPITO Mosley, [facility] 02/13/2024 16:42:38 Influenza, split virus, trivalent, preservative 4 completed Not Available [facility] 06/08/2022 15:59:51 Influenza, split virus, trivalent, preservative 4 completed Not Available [facility] 06/08/2022 15:59:52 COVID-19 Non-US Vaccine, Product Unknown 1 completed Not Available [facility] 06/08/2022 15:59:52 Influenza, adjuvanted, trivalent, PF 2 completed Not Available [facility] 06/08/2022 15:59:52 Influenza, split virus, quadrivalent, preservative 1 completed Not Available [facility] 06/08/2022 15:59:52 Influenza, split virus, quadrivalent, preservative 9 completed Not Available [facility] 06/08/2022 15:59:52 Influenza, split virus, quadrivalent, PF 8 completed Not Available [facility] 06/08/2022 15:59:52 Influenza, split virus, quadrivalent, preservative 7 completed Not Available [facility] 06/08/2022 15:59:52 Influenza, split virus, quadrivalent, preservative 5 completed Not Available [facility] 06/08/2022 15:59:52 Influenza, split virus, quadrivalent, PF 6 completed Not Available [facility] 06/08/2022 15:59:52 Past Encounters Encounter ID Performer Location Encounter Start Date Encounter Closed Date Diagnosis/Indication Diagnosis SNOMED-CT Code Diagnosis ICD10 Code Diagnosis Note [id number] [facility] [place] [address] [place] [address] 07/13/2020 00:00:00 07/14/2020 09:29:55 [id number] Jewel Frances MD [facility] [place] [address] [place] [address] [place] [address] 10/06/2020 00:00:00 10/06/2020 11:30:20 [id number] Jewel Frances MD [facility] [place] [address] [place] [address] [place] [address] 04/06/2021 00:00:00 04/06/2021 15:19:51 [id number] Jewel Frances MD [facility] [place] [address] [place] [address] [place] [address] 07/13/2021 00:00:00 07/13/2021 16:15:[id number] [facility] [place] [address] [place] [address] 07/30/2021 00:00:00 07/30/2021 10:54:[id number] [facility] [place] [address] [place] [address] 08/17/2021 00:00:00 08/17/2021 13:29:[id number] [facility] [place] [address] [place] [address] 08/31/2021 00:00:00 08/31/2021 12:29:11 [id number] [facility] [place] [address] [place] [address] 11/16/2021 00:00:00 11/16/2021 12:50:44 [id number] Jewel Frances MD [facility] [place] [address] [place] [address] [place] [address] 05/20/2022 00:00:00 05/20/2022 14:41:45 [id number] Roshan Mendez MD [facility] [place] 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 We will see him back in a few months for follow-up [id number] Roshan Mendez MD [facility] [place] 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 Internal Med [place] [address] [place] [address] [place] [address] 04/14/2023 11:36:01 04/14/2023 12:39:21 Coronary arteriosclerosis 06807339 I25.10 Hypercholesterolemia 136 19659 E78.00 Hyperglycemia 97657689 R 73.9 [id number] Jewel Frances MD [facility] [place] [address] [place] [address] [place] [address] 04/21/2023 11:06:23 04/21/2023 11:50:27 [id number] Jewel Frances MD [facility] [place] [address] [place] [address] [place] [address] 11/09/2023 14:14:23 11/09/2023 15:01:04 Coronary arteriosclerosis 11925309 I25.10 Hypercholesterolemia 136 82863 E78.00 Gastroesop hageal reflux disease 440545778 K21.9 Anxiety 63864319 F41.9 Disorder of prostate 302 28751 N42.[id number] [facility] [address] [facility] [address] [facility] [place] [address] 06/04/2024 10:40:49 06/04/2024 11:43:16 Coronary arteriosclerosis 37387646 I25.10 Hypercholesterolemia 136 31101 E78.00 Gastroesop hageal reflux disease 806185907 K21.9 Anxiety 81281239 F41.9 [id number] Jewel Frances MD [facility] [place] [address] [facility], [place] [address] 08/20/2024 16:25:29 08/20/2024 16:35:11 Pain of sternum 930054537 R07.89 Health Concerns Section Related Observation LastModified by Organization Detai ls LastModified Time None Recorded Concern Status LastModified by Organization Details LastModified Time None Recorded Advance Directives Directive N: Payers Encounter Date Sequence Insurance Name Policy Number Policy Acosta Covered Member ID Acosta Member ID Guarantor Name 04/14/2023 1 [employer] [place] (MEDICARE - MEDICAID REPLACEMENT HMO) [id number] Vinay Dilcia [id number] Vinay Dilcia 04/21/2023 1 [employer] [place]MEDICARE - MEDICAID REPLACEMENT HMO) [id number] Vinay [place] [id number] Vinay [place] 11/09/2023 1 [employer] [place]MEDICARE - MEDICAID REPLACEMENT HMO) [id number] Vinay Dilcia [id number] Vinay Dilcia 06/04/2024 1 [employer] [place]MEDICARE - MEDICAID REPLACEMENT HMO) [id number] Vinay [place] [id number] Vinay [place] 08/20/2024 1 [employer] [place]MEDICARE - MEDICAID REPLACEMENT HMO) [id number] Vinay Dilcia [id number] Vinay Dilcia Notes Date Note Type Note Provider Name and Address Organization Details Recorded Time 4 text/html Patient Name: Vinay HaDate Of Service: Monday ( 04.14.2023 ): 1960 [...] 5% (CREAM - TOPICAL) As DirectedVaccination and Ezjatkgnksqn7819-97 Nikyeoajw8880-86 Covid PfizerSurgical HistoryBilateral Eye Surgery for Glaucoma, Left Cataract, Coronary Stent LADPreventative Testing Confirmed by Our Iykujgk9910/21/2022 PSA04/28/2021 ALBUMIN 4.3 G/DL N011/25/2016 COLONOSCOPY (10 YEARS) 11/25/2026Social HistoryDoes not 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 HistoryMother 61 from complications of back surgeryFather 74 from CAD and PneumoniaOne brother living with laryngeal CA and CADTwo sisters living one DM and CAD(2) Jewel Frances MD [address] [facility], [place], [address], [place] [facility] 04/14/2023 12:43:19 4 text/html Patient Name: Vinay [...] Systemic Symptoms:none Medication Reconciliation: from medication list. [id number]: Echocardiogram estimated ejection fraction 60%. 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, [facility] [address], [place], [address], [facility] 11/09/2023 14:57:30 5 text/html Patient Name: Vinay oGmez Of Service: Monday ( 06.04.2024 ): 1960 [...] Systemic Symptoms:none Medication Reconciliation: from medication list. [id number]: Echocardiogram estimated ejection fraction 60%. 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, [facility] [address], [place], [address], [facility] [employer] [facility] 06/04/2024 11:35:05 5 text/html Patient Name: Vinay Gomez Of Service: Monday ( 08.20.2024 ): 1960 Age: 64 There has been approximately a 7 lb weight gain since 06/04/2024. This represents approximately a 3.3% change in weight. Weight change attributable to lifestyle changes. Vital Signs:Blood Pressure: Sitting Rt. Arm 138/80Pulse: Sitting 76 /min and RegularRespiratory Rate: 16Height 72 in or 1.8 mWeight 222 lb or 100.7 kgBMI 30.1Temperature: 97 F or 36.1 CPulse Oximetry: 98 % at rest on no oxygen Chief Complaint: Addressed in HPI Problems or conditions discussed in the HPI were the only ones reviewed during the encounter.Only social and family history addressed in the HPI were reviewed during this encounter. Attendant(s): NoneConstitutional and Systemic Symptoms:none Medication Reconciliation: by patient. [id number]: Echocardiogram estimated ejection fraction 60%. There is [...] at 60% History of Present Illness #1. Complains of pain and some discomfort in the left sternoclavicular junction. Likely secondary to some chronic changes.: Active Medication ListLipitor 40 MG (TABLET - [...] DailyFluorouracil 5% (CREAM - TOPICAL) As Directed Jewel Frances MD [address] [place] [address], [facility] [address], [place], [address], [place] [facility] 08/20/2024 16:31:59
--- OUTSIDE RECORDS SUMMARY | 2024-09-05 15:20 | XMS_ITS | Clinical Summary ---
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
== END 2024-09-05 15:15 | disposition home or self-care (01) ==
PROVIDERS: PCP Internal Medicine; Visit Provider Internal Medicine
DX: R31.0 Gross hematuria (principal); R53.83 Other fatigue
CPT/HCPCS: 87086

== ENCOUNTER 2024-11-22 03:25 | Emergency (ER) | payer OTHER, SELFPAY ==
--- NOTE | ~2024-11-22 | CT_ITS ---
EXAMINATION: CT brain wo con DATE: 11/22/2024 11:01 INDICATION: Headache TECHNIQUE: Computed tomography (CT) of the head was performed without intravenous contrast. Sagittal and coronal reconstructions were performed. The mA was adjusted according to patient size. Iterative reconstruction technique was employed. The dose-length product was 200.00 mGy-cm. COMPARISON: head CT dated 12/24/2018 FINDINGS: No acute intracranial hemorrhage, acute infarction or abnormal extra axial fluid collection. Ventricl es are normal and symmetric. No mass/mass effect. Intracranial calcified cerebral atherosclerosis is noted at the bilateral carotid siphons and along the likely dominant left vertebral artery. Changes o f bilateral intraocular lens replacement. Scattered mild mucosal thickening throughout the paranasal sinuses with likely dependently layering mucus in some of the bilateral ethmoid sinuses. The orbits a nd mastoid air cells are normal. IMPRESSION: 1. Normal brain. No acute intracranial process. 2. Sinus disease with suggestion of some dependent mucus in the ethmoid sinuses suspicious for acute sinusitis. Reviewed, dictated and finalized at location A.
== END 2024-11-22 04:50 | disposition home or self-care (01) ==
LOC: CHSED 07:14
PROVIDERS: Emergency Provider Emergency Medicine
DX: I10 Essential (primary) hypertension (principal); Z79.899 Other long term (current) drug therapy
CPT/HCPCS: 70450; 99283; A9270

== ENCOUNTER 2024-12-17 07:39 | Outpatient (CLI) | payer OTHER, SELFPAY ==
--- OUTSIDE RECORDS SUMMARY | 2007-01-02 07:40 | XMS_ITS | Continuity of Care Document ---
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, [id number] [place] [address] [address], [place], [place], [id number], [place] tel:[phone] [facility] No Information [address], [place], [id number], [place]. tel:[phone] Office/outpat ient Visit, Est [facility], [address] [place] [address] [address], [place], [place], [id number], [place] tel:[phone] [facility] No Information [address] [facility] [address], [place], [place], [id number], [place]. tel:[phone] [facility], [address], [place], [place], [id number], [place] tel:[phone] [facility] No Information [address] [place], [address], . tel:[phone] Referring Provider: Chidi Felipe, [address] [place], [address] . tel:[phone] [facility], [address], [place], [place], [id number], tel:[phone] [facility] No Information [address] [facility] [place], [address], . tel:[phone] Referring Provider: Chidi Felipe, [address] [place], [address] . tel:[phone] Family History Family Member Type Diagnosis Age At Onset No Information Payers Payer name Insurance type Covered alliance party ID Authoreloya melonie(s) [place] [id number] Social History Type Description Quantity Date Captured Comments Sex Male Smoking Status No Information Chief Complaint And Reason For Visit No Information Reason For Referral Reason For Referral No Information History Of Present Illness Encounter Date Complaint History Of Prese nt Illness No Information Functional Status Date Functional Assessmen t No Information Instructions Date Instruction Additional Infor mation No Information Assessments Type Assessment Date No Information Patient Care Teams Name Effective Dates (start - stop) Status Members No Information
[2024-12-17 07:54] LABS: Hematocrit 43.3 % (40.0-54.0); Hemoglobin 14.2 g/dL (14.0-18.0); Immature Granulocyte Percent A 0.3 % (0.0-0.0); Lymphocytes Absolute Auto 1.96 K/mm3 (1.10-4.50); Mean Corpuscular HGB Conc 32.8 g/dL (32-36); Mean Corpuscular Hemoglobin 28.1 pg (27.0-31.0); Mean Corpuscular Volume 85.6 fL (78.0-102.0); Nucleated Red Blood Cells Absolute Auto 0.00 K/mm3 (0.00-0.00); Nucleated Red Blood Cells Perc 0.0 % (0-0.0); Platelet Count Result 264 K/mm3 (150-420); Red Blood Count 5.06 M/mm3 (4.70-6.10); White Blood Count 7.1 K/mm3 (4.8-10.8)
--- OUTSIDE RECORDS SUMMARY | 2024-12-17 07:59 | XMS_ITS | Clinical Summary ---
Author Organization 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 Gender Identity Not on file Sexual Orientation [...] Virus (HCV) Screening 1960 TdaP Immunization 1960 Cologuard 2006 Colonoscopy 2006 Colorectal Cancer Screening 2006 Immunochemical Fecal Occult Blood 2006 Pneumococcal Immunization (5 0+ years) (1 of 1 - PCV) 2011 Zoster Immunization (1 of 2) 2011 Influenza Immunization (#1) 12/09/202401/09, 02/18/2014, 04/21/2013 SARS-COV-2 Immunization (2 - 2024- season) 2024 11/11/2020 Respiratory Syncytial Virus (RSV) Immunization (Adult) (1 - 1-dose 75+ series) 02/28/2036 Hepatitis B Immunization Aged Out No longer eligible based on patient's age to complete this topic Human Papillomavirus (HPV) Immunization Aged Out No longer eligible b ased on patient's age to complete this topic Meningococcal Immunization (ACWY) Aged Out No longer eligible b ased on patient's age to complete this topic Rotavirus Immunization Aged Out No lo nger eligible based on patient's age to complete this topic Insurance [place]ICAID [place] Care Teams Plasma Cutting Machine Operator Relationship Specialty Start Date End Date Jewel Frances MD [address] [place] [address] PCP - General Internal Medicine 06/06/19
--- OUTSIDE RECORDS SUMMARY | 2024-12-17 07:59 | XMS_ITS | Clinical Summary ---
Author Organization [facility] Address [address] [place] [address] Care Team Providers Care Space Systems Operations Craftsman Name Role Phone Jewel Frances MD Primary Care Provider [phone] Source Comments [facility],non-owned Affiliates and Associated Physician Practices is amultiple site organization consisting of ambulatory clinics and hospital sitesin [place], [place], [place] and [place]. This disclosure is being madepursuant to the Care Everywhere program and may not contain all information available regarding this patient. Last updated 17.[facility] Allergies No known active allergies Medications * Be aware that medications may not be up to date on this document. Alwaysverify current medications with the patient. 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 Gender Identity Not on file Sexual Orientation Not on file Last Filed Vital Signs Vital Sign Reading Time Taken Comments Blood Pressure 147/99 05/06/2018 12:53 PM CONSUMER AFFAIRS MANAGER Pulse 88 05/06/2018 12:53 PM CONSUMER AFFAIRS MANAGER Temperature 36.9 C (98.4 F) 05/06/2018 12:53 PM CONSUMER AFFAIRS MANAGER Respiratory Rate 16 05/06/2018 12:53 PM CONSUMER AFFAIRS MANAGER Oxygen Saturation 100% 05/06/2018 12:53 PM CONSUMER AFFAIRS MANAGER Inhaled Oxygen Concentration - - Weight 102.1 kg (225 lb) 05/06/2018 12:53 PM CONSUMER AFFAIRS MANAGER Height 182.9 cm (6') 05/06/2018 12:53 PM CONSUMER AFFAIRS MANAGER Body Mass Index 30.52 05/06/2018 12:53 PM CONSUMER AFFAIRS MANAGER Plan of Treatment Health Maintenance Due Date [...] 2011 ZOSTER VACCINE (1 of 2) 2011 DEPRESSION SCREENING 04/10/2024 COVID-19 VACCINE (1 - 2023-2 5 season) 2024 INFLUENZA VACCINE (#1) 2024 Respiratory Syncytial Virus (RSV) Vaccine Pt: or [...] patient's age to complete this topic Insurance [facility] MEDICAID - OUT OF STATE [facility] Care Teams Space Systems Operations Craftsman Relationship Specialty Start Date End Date Jewel Frances MD [address] [place] [address] [address] [place] [address] PCP - General Internal Medicine 05/06/18
--- OUTSIDE RECORDS SUMMARY | 2024-12-17 07:59 | XMS_ITS | Clinical Summary ---
Author Organization [facility] Address [facility] [place] [address] Care Team Providers Care Internal Corrosion Specialist Name Role Phone Jewel Frances MD Primary Care Provider [phone] Allergies No known active allergies Medications atorvastatin [...] C 1979 DTaP, Tdap and Td Vaccines ( 1 - Tdap) 02/28/1980 Zoster Vaccines (2 of 2) 04/09/2024 02/13/2024 COVID-19 Vaccine (2 - 2024-2 6 season) 2024 11/11/2020, 11/11/2020 RSV Immunization or 60+ Years (1 - 1-dose 75+ series) 02/28/2036 Pneumococcal Vaccine: 50+ Years Completed 02/13/2024 Meningococcal B Vaccine Aged Out No l onger eligible based on patient's age to complete this topic Meningococcal Vaccine Aged Out No silvia viki eligible based on patient's age to complete this topic RSV Immunizations Under 20 Months Aged Out No longer eligible b ased on patient's age to complete this topic Insurance [place] Care Teams Internal Corrosion Specialist Relationship Specialty Start Date End Date Jewel Frances MD [address] [id number] PCP - General INTERNAL MEDICINE 06/28/18
[2024-12-17 08:44] LABS: Alanine Aminotransferase 17 U/L (6-50); Albumin Level 4.5 g/dL (3.5-5.1); Alkaline Phosphatase 62 U/L (38-126); Anion Gap 10 mmol/L (4-12); Aspartate Amino Transferase 23 U/L (17-59); Bilirubin,Total 1.0 mg/dL (0.2-1.3); Blood Urea Nitrogen 15 mg/dL (9-20); Calcium 10.0 mg/dL (8.4-10.2); Carbon Dioxide 29 mmol/L (22-30); Chloride 102 mmol/L (98-107); Cholesterol 174 mg/dL (0-200); Estimated Glomerular Filt Rate > 60; Glucose 93 mg/dL (65-110); HDL Direct 45 mg/dL; Magnesium 2.1 mg/dL (1.6-2.3); Osmolality Calculated 292 mOsm/kg (285-295); Potassium 4.9 mmol/L (3.4-5.0); Sodium 141 mmol/L (137-145); Total Protein 7.1 g/dL (6.3-8.2); Triglycerides 143 mg/dL (<150)
[2024-12-17 09:14] LABS: Prostate Specific Antigen 1.1 ng/mL (< OR = 4.0)
[2024-12-17 09:33] LABS: Vitamin B12 433.0 pg/mL (239-931)
== END 2024-12-17 07:40 | disposition home or self-care (01) ==
PROVIDERS: PCP Internal Medicine; Visit Provider Internal Medicine
DX: E78.00 Pure hypercholesterolemia, unspecified (principal); K21.9 Gastro-esophageal reflux disease without esophagitis; N42.9 Disorder of prostate, unspecified
CPT/HCPCS: 36415; 80053; 80061; 82607; 83735; 84153; 85025